=== PATIENT | male | born 1945 | race Caucasian/White ===

== ENCOUNTER 2017-12-20 06:36 | Emergency (ER) | payer OTHER, MEDICARE ==
[~2017-12-20] VITALS: Ht 188 cm; Wt 120.0 kg
[~2017-12-20 06:36] MED LIST: ASPI-41 PO; ATE25T PO; ATOR20TA66 PO; ESLI800T PO; KEP500T PO; LEVO150T8 PO; METF500T4 PO; OMEP20TA5 PO; OXYB15TA PO
[2017-12-20 06:43] VITALS: BP 146/99
== END 2017-12-20 10:25 | disposition home or self-care (01) ==
LOC: ER 06:36
DX: G40.909 Epilepsy, unspecified, not intractable, without status epilepticus (principal); I10 Essential (primary) hypertension; Z86.73 Personal history of transient ischemic attack (TIA), and cerebral infarction without residual deficits; Z79.82 Long term (current) use of aspirin
CPT/HCPCS: 93005; 99284

== ENCOUNTER 2018-06-16 12:58 | Emergency (ER) | payer MEDICARE, OTHER ==
[~2018-06-16] VITALS: Ht 185.4 cm; Wt 107.0 kg
[~2018-06-16 12:58] MED LIST changes: +ASPI-1265 PO; +ATEN-169 PO; +DILT180C66 PO; +LAMO25TA94 PO; +LEVE10002 PO; +LEVO175T2 PO; +LOSA25TA96 PO; +METF-436 PO; +METF500T PO; -METF500T4 PO; +OMEP40CA37 PO; +RIVA20TA PO
[2018-06-16 13:01] VITALS: BP 175/104
[2018-06-16] MEDS ORDERED: dexamethasone sod phosphate 10mg/ml inj IM STA (14:11)
[2018-06-16] MEDS ORDERED: gabapentin 300mg capsule PO ONE (14:15)
== END 2018-06-16 14:30 | disposition home or self-care (01) ==
LOC: ER 12:59
DX: M54.5 Low back pain (principal); R56.9 Unspecified convulsions; I10 Essential (primary) hypertension; E11.9 Type 2 diabetes mellitus without complications; Z86.73 Personal history of transient ischemic attack (TIA), and cerebral infarction without residual deficits; Z79.82 Long term (current) use of aspirin
CPT/HCPCS: 96372; 99283; J1100

== ENCOUNTER 2018-07-15 09:24 | Inpatient (IN) | payer MEDICARE, OTHER ==
[~2018-07-15] VITALS: Ht 180.3 cm; Wt 115.4 kg
[2018-07-15] MEDS ORDERED: normal saline 1000ML IV soln IVB ONE (09:30)
[2018-07-15] MEDS ORDERED: piperacillin/tazo 3.375gm/50ml 50 ML IV ONE (09:35)
[2018-07-15] MEDS ORDERED: furosemide 10 MG/1 ML 10ml inj IV ONE (09:35)
[2018-07-15 09:43] LABS: BASOPHILS # (AUTO) 0.2 X10'3 (0-0.2); BASOPHILS % (AUTO) 1.3 % (0-1); EOSINOPHILS % (AUTO) 0 % (0-6); HEMATOCRIT 47.1 % (42.0-52.0); HEMOGLOBIN 16.1 g/dl (14.0-17.9); LYMPHOCYTES # (AUTO) 0.3 X10'3 (1.1-4.8); LYMPHOCYTES % (AUTO) 1.8 % (21-51); MEAN CORPUSCULAR HEMOGLOBIN 31.3 PG (27.0-31.0); MEAN CORPUSCULAR HGB CONC 34.2 % (33.0-36.5); MEAN CORPUSCULAR VOLUME 91.6 FL (78-98); MONOCYTES # (AUTO) 0.7 X10'3 (0-0.9); MONOCYTES % (AUTO) 3.5 % (2-12); NEUTROPHILS # (AUTO) 17.5 X10'3 (1.8-7.7); NEUTROPHILS % (AUTO) 93.4 % (42-75); RED BLOOD COUNT 5.15 X10'6 (4.70-6.10); RED CELL DISTRIBUTION WIDTH 12.8 % (11.5-14.5); WHITE BLOOD COUNT 18.7 X10'3 (4.5-11.0)
[2018-07-15] MEDS ORDERED: ipratropium/albuterol 3ml nebule NEB ONE (09:45)
[2018-07-15 09:48] LABS: MEAN PLATELET VOLUME 8.7 FL (7.4-10.4); PLATELET COUNT 347 X10'3 (140-440)
[2018-07-15 09:57] LABS: ALANINE AMINOTRANSFERASE 29 U/L (12-78); ALBUMIN 4.1 G/DL (3.4-5.0); ALKALINE PHOSPHATASE 91 IU/L (46-116); ANION GAP 12 (8-16); ASPARTATE AMINO TRANSFERASE 18 U/L (10-37); BILIRUBIN,TOTAL 0.4 MG/DL (0.1-1.0); BLOOD UREA NITROGEN 19 MG/DL (7-18); BUN/CREATININE RATIO 16.7 (5.4-32.0); CALCIUM 8.9 MG/DL (8.5-10.1); CHLORIDE 98 MMOL/L (99-107); CREATININE 1.14 MG/DL (0.60-1.10); GLUCOSE 228 MG/DL (70-104); POTASSIUM 4.4 MMOL/L (3.5-5.1); SODIUM 135 MMOL/L (135-145); TOTAL CARBON DIOXIDE 24.6 MMOL/L (24-32); TOTAL PROTEIN 8.1 G/DL (6.4-8.2); eGFR 64 ML/MIN
[2018-07-15 10:00] LABS: ETHANOL < 0.010 GM/DL (0.0-0.010); TROPONIN I 0.08 NG/ML (0.0-0.05)
[2018-07-15 10:11] LABS: ABG BASE EXCESS -6.2 mmol/L (-2.0-3.0); ABG HCO3 21.3 mmol/L (22.0-26.0); ABG OXYGEN SATURATION 86.2 % (95-98); ABG PCO2 (T) 49.4 mmHg (35.0-48.0); ABG PH (T) 7.253 (7.350-7.450); ABG PO2 (T) 55.9 mmHg (83-108); ALLEN'S TEST Positive; FCOHb 0.7 % (0.5-1.5); FMetHb 0.2 % (0.3-1.12); FO2Hb 85.4 % (94-100); TOTAL HEMOGLOBIN 16.5 G/dl (14.0-18.0)
[2018-07-15] MEDS ORDERED: LORazepam 2 mg/ml vial IV ONE (10:15)
[2018-07-15 10:16] LABS: ABG BASE EXCESS -6.7 mmol/L (-2.0-3.0); ABG HCO3 20.6 mmol/L (22.0-26.0); ABG OXYGEN SATURATION 86.9 % (95-98); ABG PCO2 (T) 47.3 mmHg (35.0-48.0); ABG PH (T) 7.256 (7.350-7.450); ABG PO2 (T) 56.1 mmHg (83-108); ALLEN'S TEST Positive; FCOHb 0.8 % (0.5-1.5); FMetHb 0.2 % (0.3-1.12); TOTAL HEMOGLOBIN 16.1 G/dl (14.0-18.0)
[2018-07-15] MEDS ORDERED: iohexol 350MG/ML 100ml bottle IV ONE (10:25)
[2018-07-15 11:18] LABS: CLARITY,URINE CLEAR (Clear); COLOR,URINE STRAW (Yellow); GLUCOSE, URINE 500 mg/dl (Neg); KETONES,URINE TRACE mg/dl (Neg); LEUKOCYTE ESTERASE ,URINE NEGATIVE (Neg); NITRITES, URINE NEGATIVE (Neg); OCCULT BLOOD,URINE TRACE-INTACT (Neg); PROTEIN,URINE NEGATIVE (Neg); UROBILINOGEN,URINE 0.2 E.U/dL (0.2-1.0)
[2018-07-15 11:24] LABS: URINE AMPHETAMINE SCREEN NEGATIVE (Neg); URINE BARBITUATE SCREEN NEGATIVE (Neg); URINE BENZODIAZEPINES SCREEN NEGATIVE (Neg); URINE CANNABINOID SCREEN NEGATIVE (Neg); URINE COCAINE SCREEN NEGATIVE (Neg); URINE METHADONE SCREEN NEGATIVE (Neg); URINE OPIATE SCREEN NEGATIVE (Neg); URINE PHENCYCLIDINE SCREEN NEGATIVE (Neg)
[2018-07-15 11:29] LABS: UA COLLECTION TYPE STRAIGHT CATH
[2018-07-15] MEDS ORDERED: normal saline 1000ML IV soln IV ONE (11:35)
[2018-07-15 11:36] LABS: BACTERIA,URINE NONE SEEN /HPF (Neg); RBC,URINE 0-2 /HPF (0-2); SQUAMOUS EPITHELIAL CELL,UR NONE SEEN /LPF (FEW); WBC,URINE 0-4 /HPF (0-4)
[2018-07-15] MEDS ORDERED: magnesium hydroxide 30ml (MOM) UD suspension PO PRN (12:05)
[2018-07-15] MEDS ORDERED: magnesium 1gm/100ml D5W IVPB 100 ML IV PRN (12:05)
[2018-07-15] MEDS ORDERED: magnesium 4gm in 100ml NS 100 ML IV PRN (12:05)
[2018-07-15] MEDS ORDERED: ondansetron/PF 4mg/2ml inj IV PRN (12:05)
[2018-07-15] MEDS ORDERED: potassium Cl 40MEQ/NS 500ml 500 ML IV PRN ×2 (12:05)
[2018-07-15] MEDS ORDERED: mag hydrox/Alum hydrox/simeth 30ml oral suspension PO PRN (12:05)
[2018-07-15] MEDS ORDERED: acetaminophen 325mg tablet PO PRN (12:05)
[2018-07-15] MEDS ORDERED: potassium Cl 20 mEq SR tablet PO PRN ×2 (12:05)
[2018-07-15] MEDS ORDERED: LEVE500T PO ×2 (12:06)
[2018-07-15] MEDS ORDERED: dextrose 50%-water 50ml dispensing syringe IV PRN ×2 (12:35)
[2018-07-15] MEDS ORDERED: glucagon, human recombinant 1mg kit SUBCUT PRN (12:35)
[2018-07-15] MEDS ORDERED: dextrose ORAL solution 15 GM/59 ML bottle PO PRN ×2 (12:35)
[2018-07-15] MEDS ORDERED: MESSAGE TO PHARMACY PO ONE (12:35)
[2018-07-15] MEDS: normal saline 1000ml 1,000 ML IV SCH ×3 (12:38→23:07)
[2018-07-15 15:00] VITALS: BP 162/121
[2018-07-15] MEDS: MESSAGE TO NURSING PO SCH (15:35)
[2018-07-15] MEDS: diltiazem 5mg/ml 5ml inj. IV SCH ×2 (16:31→21:37)
[2018-07-15] MEDS: levoTHYROXINE sod inj. 100mcg/5 ml vial IV SCH (16:47)
[2018-07-15] MEDS: enoxaparin 100mg/ml syringe SUBCUT SCH (16:57)
[2018-07-15] MEDS: piperacillin/tazo 3.375gm/50ml 50 ML IV SCH (17:00)
[2018-07-15 19:00] VITALS: BP 181/128
[2018-07-15] MEDS: lactobacillus rhamnosus 10,000 MMU CELLS/CAPSULE PO SCH (20:00)
[2018-07-15] MEDS: insulin glargine (Lantus) pen - multi-dose SQ SCH (21:00)
[2018-07-15] MEDS ORDERED: LevETIRAcetam 1500 MG in NORMAL SALINE 100ml bag IV SCH (21:00)
[2018-07-15] MEDS: morphine 2 MG/ML inj. syringe IV PRN (21:31)
[2018-07-15] MEDS: levetiracetam inj 1,000 MG in normal saline 100ml IV soln 90 ML IV SCH (21:37)
[2018-07-15 23:00] VITALS: BP 155/91
[2018-07-15] MEDS: LORazepam 2 mg/ml vial IV PRN (23:03)
[2018-07-16] MEDS: diltiazem 5mg/ml 5ml inj. IV SCH ×3 (02:03→14:40)
[2018-07-16 03:00] VITALS: BP 160/79
[2018-07-16 05:12] LABS: BASOPHILS % (AUTO) 0.1 % (0-1); EOSINOPHILS % (AUTO) 0 % (0-6); HEMOGLOBIN 15.4 g/dl (14.0-17.9); LYMPHOCYTES # (AUTO) 0.4 X10'3 (1.1-4.8); LYMPHOCYTES % (AUTO) 2.7 % (21-51); MEAN CORPUSCULAR HEMOGLOBIN 31.2 PG (27.0-31.0); MEAN CORPUSCULAR HGB CONC 34.1 % (33.0-36.5); MEAN CORPUSCULAR VOLUME 91.5 FL (78-98); MEAN PLATELET VOLUME 9.4 FL (7.4-10.4); MONOCYTES # (AUTO) 0.5 X10'3 (0-0.9); MONOCYTES % (AUTO) 3.5 % (2-12); NEUTROPHILS # (AUTO) 14.3 X10'3 (1.8-7.7); NEUTROPHILS % (AUTO) 93.7 % (42-75); PLATELET COUNT 308 X10'3 (140-440); RED BLOOD COUNT 4.92 X10'6 (4.70-6.10); WHITE BLOOD COUNT 15.2 X10'3 (4.5-11.0)
[2018-07-16 05:30] LABS: ALANINE AMINOTRANSFERASE 23 U/L (12-78); ALBUMIN 3.5 G/DL (3.4-5.0); ALBUMIN/GLOBULIN RATIO 0.9 (1.1-1.5); ALKALINE PHOSPHATASE 70 IU/L (46-116); ANION GAP 18 (8-16); ASPARTATE AMINO TRANSFERASE 17 U/L (10-37); BILIRUBIN,TOTAL 0.5 MG/DL (0.1-1.0); BLOOD UREA NITROGEN 21 MG/DL (7-18); BUN/CREATININE RATIO 19.8 (5.4-32.0); CHLORIDE 105 MMOL/L (99-107); CHOL/HDL RATIO 3.2 (0.00-4.99); CHOLESTEROL 171 MG/DL (0-200); CREATININE 1.06 MG/DL (0.60-1.10); GLUCOSE 215 MG/DL (70-104); HDL CHOLESTEROL 54 MG/DL (35-60); LDL CHOLESTEROL 104 MG/DL (50-100); SODIUM 144 MMOL/L (135-145); TOTAL CARBON DIOXIDE 21.1 MMOL/L (24-32); TOTAL PROTEIN 7.5 G/DL (6.4-8.2); TRIGLYCERIDES 111 MG/DL (20-135); eGFR 69 ML/MIN
[2018-07-16 06:03] LABS: POTASSIUM 2.8 MMOL/L (3.5-5.1)
[2018-07-16 06:59] VITALS: BP 154/105
[2018-07-16] MEDS ORDERED: LevETIRAcetam 1,000MG in NORMAL SALINE 100ml IV.SOLN IV SCH (08:00)
[2018-07-16] MEDS: piperacillin/tazo 3.375gm/50ml 50 ML IV SCH ×3 (08:00→17:02)
[2018-07-16] MEDS: K and/or MAG REPLACEMENT MC SCH (08:00)
[2018-07-16] MEDS: levoTHYROXINE sod inj. 100mcg/5 ml vial IV SCH (08:00)
[2018-07-16 08:01] VITALS: BP 160/108
[2018-07-16] MEDS: normal saline 1000ml 1,000 ML IV SCH ×2 (08:34→18:59)
[2018-07-16] MEDS: levetiracetam inj 1,000 MG in normal saline 100ml IV soln 90 ML IV SCH ×3 (08:35→21:12)
[2018-07-16] MEDS: enoxaparin 100mg/ml syringe SUBCUT SCH (08:36)
[2018-07-16] MEDS: lactobacillus rhamnosus 10,000 MMU CELLS/CAPSULE PO SCH ×2 (08:37→21:12)
[2018-07-16] MEDS: insulin Lispro (HumaLOG) vial - multi-dose SQ SCH ×3 (08:47→19:01)
[2018-07-16] MEDS: LORazepam 2 mg/ml vial IV PRN (09:44)
[2018-07-16] MEDS: MESSAGE TO NURSING PO SCH (11:00)
[2018-07-16] MEDS: atenolol 50mg tablet PO SCH ×2 (11:35→21:12)
[2018-07-16] MEDS: morphine 2 MG/ML inj. syringe IV PRN ×2 (15:59→21:24)
[2018-07-16] MEDS ORDERED: hydrALAZINE 20mg/ml inj. IV PRN (16:45)
[2018-07-16] MEDS: acyclovir inj 1,000 MG in normal saline 250ml IV soln 230 ML IV SCH (17:02)
[2018-07-16] MEDS: diltiazem-NS 100mg/100ml 100 ML IV SCH (18:35)
[2018-07-16 19:00] VITALS: BP 148/110
[2018-07-16] MEDS: insulin glargine (Lantus) pen - multi-dose SQ SCH (21:00)
[2018-07-16] MEDS: CefTRIAXone 2gm/D5W 50ml 50 ML IV SCH (21:00)
[2018-07-16 23:00] VITALS: BP 179/110
[2018-07-17] VITALS (9 sets, daily range): BP systolic 111–173; BP diastolic 67–136
[2018-07-17] MEDS: normal saline 1000ml 1,000 ML IV SCH ×5 (02:00→10:47)
[2018-07-17] MEDS: morphine 2 MG/ML inj. syringe IV PRN (02:12)
[2018-07-17] MEDS: hydrALAZINE 20mg/ml inj. IV PRN (03:50)
[2018-07-17 05:48] LABS: BASOPHILS % (AUTO) 0.1 % (0-1); EOSINOPHILS % (AUTO) 0 % (0-6); HEMOGLOBIN 14.7 g/dl (14.0-17.9); LYMPHOCYTES # (AUTO) 0.7 X10'3 (1.1-4.8); LYMPHOCYTES % (AUTO) 4.3 % (21-51); MEAN CORPUSCULAR HEMOGLOBIN 31.5 PG (27.0-31.0); MEAN CORPUSCULAR HGB CONC 34.2 % (33.0-36.5); MEAN CORPUSCULAR VOLUME 92.3 FL (78-98); MONOCYTES % (AUTO) 6.6 % (2-12); NEUTROPHILS # (AUTO) 14.2 X10'3 (1.8-7.7); PLATELET COUNT 354 X10'3 (140-440); RED BLOOD COUNT 4.66 X10'6 (4.70-6.10); RED CELL DISTRIBUTION WIDTH 13.5 % (11.5-14.5); WHITE BLOOD COUNT 15.9 X10'3 (4.5-11.0)
[2018-07-17 06:02] LABS: ALANINE AMINOTRANSFERASE 19 U/L (12-78); ALBUMIN 3.1 G/DL (3.4-5.0); ALBUMIN/GLOBULIN RATIO 0.8 (1.1-1.5); ALKALINE PHOSPHATASE 60 IU/L (46-116); ANION GAP 16 (8-16); ASPARTATE AMINO TRANSFERASE 11 U/L (10-37); BILIRUBIN,TOTAL 0.5 MG/DL (0.1-1.0); BLOOD UREA NITROGEN 41 MG/DL (7-18); BUN/CREATININE RATIO 39.8 (5.4-32.0); CALCIUM 9.7 MG/DL (8.5-10.1); CHLORIDE 115 MMOL/L (99-107); CREATININE 1.03 MG/DL (0.60-1.10); GLUCOSE 241 MG/DL (70-104); MAGNESIUM 2.2 MG/DL (1.5-2.4); POTASSIUM 3.6 MMOL/L (3.5-5.1); SODIUM 152 MMOL/L (135-145); TOTAL CARBON DIOXIDE 21.2 MMOL/L (24-32); TOTAL PROTEIN 6.9 G/DL (6.4-8.2); eGFR 71 ML/MIN
[2018-07-17] MEDS: levetiracetam inj 1,000 MG in normal saline 100ml IV soln 90 ML IV SCH ×3 (07:41→20:17)
[2018-07-17] MEDS: CefTRIAXone 2gm/D5W 50ml 50 ML IV SCH (07:41)
[2018-07-17] MEDS: acyclovir inj 1,000 MG in normal saline 250ml IV soln 230 ML IV SCH ×4 (07:41→15:48)
[2018-07-17] MEDS: lactobacillus rhamnosus 10,000 MMU CELLS/CAPSULE PO SCH ×2 (07:42→20:17)
[2018-07-17] MEDS: levoTHYROXINE sod inj. 100mcg/5 ml vial IV SCH (07:43)
[2018-07-17] MEDS: K and/or MAG REPLACEMENT MC SCH (08:00)
[2018-07-17] MEDS: atenolol 50mg tablet PO SCH ×2 (08:02→20:17)
[2018-07-17] MEDS ORDERED: diltiazem 5mg/ml 5ml inj. IV ONE (09:25)
[2018-07-17] MEDS: diltiazem-NS 100mg/100ml 100 ML IV SCH (10:18)
[2018-07-17] MEDS: insulin Lispro (HumaLOG) vial - multi-dose SQ SCH ×4 (10:35→22:18)
[2018-07-17] MEDS: LORazepam 2 mg/ml vial IV PRN (10:36)
[2018-07-17 13:01] LABS: GLUCOSE,CSF 151 MG/DL (40-75); TOTAL PROTEIN,CSF 61 MG/DL (30-60)
[2018-07-17 13:24] LABS: APPEARANCE,CSF CLEAR; CSF RBC 0 /CU MM (0); CSF SUPERNATANT COLOR COLORLESS; CSF VOLUME 15.5 ML; TUBE# COUNTED 3
[2018-07-17 13:31] LABS: CSF WBC CT 3 /CU MM (0-5)
[2018-07-17] MEDS ORDERED: digoxin 250mcg/ml 2ml ampule IV ONE (13:45)
[2018-07-17] MEDS ORDERED: amiodarone 150mg/dext, iso-os 100 ML IV ONE (16:00)
[2018-07-17] MEDS: dextrose 5%-water 1,000 ML IV SCH (16:10)
[2018-07-17] MEDS: amiodarone/D5 360MG/200ML BAG 200 ML IV SCH ×2 (17:13→17:46)
[2018-07-17] MEDS: insulin glargine (Lantus) pen - multi-dose SQ SCH (22:11)
[2018-07-18] VITALS (9 sets, daily range): BP systolic 116–154; BP diastolic 73–115
[2018-07-18] MEDS: amiodarone/D5 360MG/200ML BAG 200 ML IV SCH (01:32)
[2018-07-18] MEDS: dextrose 5%-water 1,000 ML IV SCH ×3 (02:10→22:40)
[2018-07-18 04:27] LABS: BASOPHILS # (AUTO) 0.1 X10'3 (0-0.2); BASOPHILS % (AUTO) 0.6 % (0-1); EOSINOPHILS % (AUTO) 0 % (0-6); HEMATOCRIT 41.6 % (42.0-52.0); HEMOGLOBIN 14.1 g/dl (14.0-17.9); LYMPHOCYTES # (AUTO) 0.9 X10'3 (1.1-4.8); LYMPHOCYTES % (AUTO) 6.3 % (21-51); MEAN CORPUSCULAR HEMOGLOBIN 31.4 PG (27.0-31.0); MEAN CORPUSCULAR VOLUME 92.4 FL (78-98); MEAN PLATELET VOLUME 9.2 FL (7.4-10.4); MONOCYTES # (AUTO) 1.1 X10'3 (0-0.9); NEUTROPHILS # (AUTO) 12.2 X10'3 (1.8-7.7); NEUTROPHILS % (AUTO) 85.1 % (42-75); PLATELET COUNT 291 X10'3 (140-440); RED CELL DISTRIBUTION WIDTH 13.6 % (11.5-14.5); WHITE BLOOD COUNT 14.3 X10'3 (4.5-11.0)
[2018-07-18 04:41] LABS: ALANINE AMINOTRANSFERASE 34 U/L (12-78); ALBUMIN/GLOBULIN RATIO 0.9 (1.1-1.5); ALKALINE PHOSPHATASE 66 IU/L (46-116); ANION GAP 11 (8-16); ASPARTATE AMINO TRANSFERASE 31 U/L (10-37); BILIRUBIN,TOTAL 0.3 MG/DL (0.1-1.0); BLOOD UREA NITROGEN 45 MG/DL (7-18); BUN/CREATININE RATIO 39.1 (5.4-32.0); CALCIUM 9.4 MG/DL (8.5-10.1); CHLORIDE 120 MMOL/L (99-107); CREATININE 1.15 MG/DL (0.60-1.10); GLUCOSE 155 MG/DL (70-104); MAGNESIUM 2.2 MG/DL (1.5-2.4); POTASSIUM 3.8 MMOL/L (3.5-5.1); TOTAL CARBON DIOXIDE 23.7 MMOL/L (24-32); TOTAL PROTEIN 6.4 G/DL (6.4-8.2); eGFR 63 ML/MIN
[2018-07-18 04:46] LABS: SODIUM 155 MMOL/L (135-145)
[2018-07-18] MEDS: lactobacillus rhamnosus 10,000 MMU CELLS/CAPSULE PO SCH ×2 (07:56→20:47)
[2018-07-18] MEDS: atenolol 50mg tablet PO SCH (07:57)
[2018-07-18] MEDS: levetiracetam inj 1,000 MG in normal saline 100ml IV soln 90 ML IV SCH ×3 (07:58→20:47)
[2018-07-18] MEDS: K and/or MAG REPLACEMENT MC SCH (08:00)
[2018-07-18] MEDS ORDERED: diltiazem 5mg/ml 5ml inj. IV ONE (08:35)
[2018-07-18] MEDS: acyclovir inj 1,000 MG in normal saline 250ml IV soln 230 ML IV SCH ×4 (08:56→16:24)
[2018-07-18] MEDS: diltiazem-NS 100mg/100ml 100 ML IV SCH ×2 (09:06→20:33)
[2018-07-18] MEDS: levoTHYROXINE sod inj. 100mcg/5 ml vial IV SCH (09:27)
[2018-07-18] MEDS: insulin Lispro (HumaLOG) vial - multi-dose SQ SCH ×2 (09:29→13:13)
[2018-07-18 09:56] LABS: CLARITY,URINE CLEAR (Clear); COLOR,URINE YELLOW (Yellow); GLUCOSE, URINE >=1000 mg/dl (Neg); KETONES,URINE NEGATIVE (Neg); LEUKOCYTE ESTERASE ,URINE NEGATIVE (Neg); NITRITES, URINE NEGATIVE (Neg); OCCULT BLOOD,URINE TRACE-INTACT (Neg); PH,URINE 6.5 (4.8-8.0); PROTEIN,URINE NEGATIVE (Neg); UROBILINOGEN,URINE 0.2 E.U/dL (0.2-1.0)
[2018-07-18 10:04] LABS: UA COLLECTION TYPE FOLEY CATH
[2018-07-18 10:05] LABS: BACTERIA,URINE NONE SEEN /HPF (Neg); MUCUS STRANDS NONE SEEN /LPF (Neg); SQUAMOUS EPITHELIAL CELL,UR NONE SEEN /LPF (FEW); WBC,URINE 0-4 /HPF (0-4)
[2018-07-18] MEDS: rivaroxaban 20mg tablet PO SCH (10:24)
[2018-07-18 10:33] LABS: OSMOLALITY 337 MOSM/K (280-300)
[2018-07-18 12:14] LABS: SODIUM,URINE RANDOM < 15 MEQ/L
[2018-07-18] MEDS: carVEDilol 12.5mg tablet PO SCH (20:47)
[2018-07-18] MEDS: atorvastatin 20mg tablet PO SCH (20:47)
[2018-07-18] MEDS: insulin glargine (Lantus) pen - multi-dose SQ SCH (21:55)
[2018-07-19] VITALS (8 sets, daily range): BP systolic 102–162; BP diastolic 58–120
[2018-07-19] MEDS: acyclovir inj 1,000 MG in normal saline 250ml IV soln 230 ML IV SCH ×3 (00:42→20:19)
[2018-07-19 06:05] LABS: ABG HCO3 23.9 mmol/L (22.0-26.0); ABG OXYGEN SATURATION 96.7 % (95-98); ABG PCO2 (T) 35.5 mmHg (35.0-48.0); ABG PH (T) 7.453 (7.350-7.450); ABG PO2 (T) 96.3 mmHg (83-108); ALLEN'S TEST Positive; FCOHb 0.8 % (0.5-1.5); FLOW 4 L/min; FMetHb 0.1 % (0.3-1.12); FO2Hb 95.8 % (94-100); PATIENT TEMPERATURE 38.6; TOTAL HEMOGLOBIN 14.3 G/dl (14.0-18.0)
[2018-07-19] MEDS: hydrALAZINE 20mg/ml inj. IV PRN (06:15)
[2018-07-19 06:31] LABS: BASOPHILS % (AUTO) 0.2 % (0-1); EOSINOPHILS % (AUTO) 0 % (0-6); HEMATOCRIT 38.8 % (42.0-52.0); HEMOGLOBIN 13.4 g/dl (14.0-17.9); LYMPHOCYTES % (AUTO) 7.4 % (21-51); MEAN CORPUSCULAR HGB CONC 34.6 % (33.0-36.5); MEAN CORPUSCULAR VOLUME 92.5 FL (78-98); MEAN PLATELET VOLUME 10.1 FL (7.4-10.4); MONOCYTES # (AUTO) 0.8 X10'3 (0-0.9); MONOCYTES % (AUTO) 6.1 % (2-12); NEUTROPHILS # (AUTO) 11.3 X10'3 (1.8-7.7); NEUTROPHILS % (AUTO) 86.3 % (42-75); PLATELET COUNT 275 X10'3 (140-440); RED BLOOD COUNT 4.19 X10'6 (4.70-6.10); RED CELL DISTRIBUTION WIDTH 13.5 % (11.5-14.5); WHITE BLOOD COUNT 13.1 X10'3 (4.5-11.0)
[2018-07-19 07:11] LABS: ALANINE AMINOTRANSFERASE 42 U/L (12-78); ALBUMIN 2.9 G/DL (3.4-5.0); ALBUMIN/GLOBULIN RATIO 0.9 (1.1-1.5); ALKALINE PHOSPHATASE 71 IU/L (46-116); ANION GAP 11 (8-16); ASPARTATE AMINO TRANSFERASE 35 U/L (10-37); BILIRUBIN,TOTAL 0.5 MG/DL (0.1-1.0); BLOOD UREA NITROGEN 36 MG/DL (7-18); CALCIUM 9.3 MG/DL (8.5-10.1); CHLORIDE 120 MMOL/L (99-107); CREATININE 1.24 MG/DL (0.60-1.10); GLUCOSE 223 MG/DL (70-104); POTASSIUM 3.6 MMOL/L (3.5-5.1); TOTAL CARBON DIOXIDE 26.7 MMOL/L (24-32); TOTAL PROTEIN 6.2 G/DL (6.4-8.2); TROPONIN I < 0.04 NG/ML (0.0-0.05); eGFR 58 ML/MIN
[2018-07-19] MEDS: carVEDilol 12.5mg tablet PO SCH ×2 (07:14→23:15)
[2018-07-19] MEDS: rivaroxaban 20mg tablet PO SCH (07:15)
[2018-07-19] MEDS: levetiracetam inj 1,000 MG in normal saline 100ml IV soln 90 ML IV SCH ×3 (07:15→23:03)
[2018-07-19] MEDS: lactobacillus rhamnosus 10,000 MMU CELLS/CAPSULE PO SCH ×2 (07:15→23:19)
[2018-07-19 07:16] LABS: SODIUM 158 MMOL/L (135-145)
[2018-07-19] MEDS: levoTHYROXINE sod inj. 100mcg/5 ml vial IV SCH (07:20)
[2018-07-19] MEDS ORDERED: diltiazem 5mg/ml 5ml inj. IV ONE (07:40)
[2018-07-19] MEDS: K and/or MAG REPLACEMENT MC SCH (08:00)
[2018-07-19] MEDS: dextrose 5%-water 1,000 ML IV SCH ×2 (08:09→16:09)
[2018-07-19] MEDS ORDERED: mineral oil 133ml enema RC STA (09:38)
[2018-07-19] MEDS: insulin Lispro (HumaLOG) vial - multi-dose SQ SCH ×3 (10:19→20:11)
[2018-07-19] MEDS ORDERED: diltiazem-NS 100mg/100ml 100 ML IV SCH (10:46)
[2018-07-19] MEDS: enoxaparin 100mg/ml syringe SUBCUT SCH ×2 (12:08→20:12)
[2018-07-19] MEDS: diltiazem-NS 100mg/100ml 100 ML IV SCH (17:32)
[2018-07-19] MEDS: mineral oil 133ml enema RC SCH (20:25)
[2018-07-19] MEDS: insulin glargine (Lantus) pen - multi-dose SQ SCH (22:28)
[2018-07-19] MEDS: atorvastatin 20mg tablet PO SCH (23:15)
[2018-07-20] VITALS (8 sets, daily range): BP systolic 106–143; BP diastolic 64–99
[2018-07-20] MEDS: dextrose 5%-water 1,000 ML IV SCH ×4 (00:17→22:06)
[2018-07-20] MEDS: mineral oil 133ml enema RC SCH (02:18)
[2018-07-20] MEDS: diltiazem-NS 100mg/100ml 100 ML IV SCH ×3 (04:06→22:31)
[2018-07-20 06:34] LABS: BASOPHILS % (AUTO) 0.1 % (0-1); EOSINOPHILS % (AUTO) 0.1 % (0-6); HEMATOCRIT 34.5 % (42.0-52.0); HEMOGLOBIN 11.5 g/dl (14.0-17.9); LYMPHOCYTES # (AUTO) 0.9 X10'3 (1.1-4.8); LYMPHOCYTES % (AUTO) 6.7 % (21-51); MEAN CORPUSCULAR HEMOGLOBIN 31.1 PG (27.0-31.0); MEAN CORPUSCULAR HGB CONC 33.3 % (33.0-36.5); MEAN CORPUSCULAR VOLUME 93.4 FL (78-98); MONOCYTES # (AUTO) 0.8 X10'3 (0-0.9); MONOCYTES % (AUTO) 6.1 % (2-12); NEUTROPHILS # (AUTO) 11.1 X10'3 (1.8-7.7); PLATELET COUNT 223 X10'3 (140-440); RED BLOOD COUNT 3.69 X10'6 (4.70-6.10); RED CELL DISTRIBUTION WIDTH 14.3 % (11.5-14.5); WHITE BLOOD COUNT 12.7 X10'3 (4.5-11.0)
[2018-07-20 06:56] LABS: ALANINE AMINOTRANSFERASE 36 U/L (12-78); ALBUMIN 2.4 G/DL (3.4-5.0); ALBUMIN/GLOBULIN RATIO 0.8 (1.1-1.5); ALKALINE PHOSPHATASE 62 IU/L (46-116); ANION GAP 11 (8-16); ASPARTATE AMINO TRANSFERASE 35 U/L (10-37); BILIRUBIN,TOTAL 0.5 MG/DL (0.1-1.0); BLOOD UREA NITROGEN 38 MG/DL (7-18); CALCIUM 8.4 MG/DL (8.5-10.1); CHLORIDE 119 MMOL/L (99-107); CREATININE 1.31 MG/DL (0.60-1.10); GLUCOSE 208 MG/DL (70-104); MAGNESIUM 1.7 MG/DL (1.5-2.4); POTASSIUM 3.4 MMOL/L (3.5-5.1); SODIUM 154 MMOL/L (135-145); TOTAL CARBON DIOXIDE 24.5 MMOL/L (24-32); TOTAL PROTEIN 5.5 G/DL (6.4-8.2); TROPONIN I < 0.04 NG/ML (0.0-0.05); eGFR 54 ML/MIN
[2018-07-20] MEDS: K and/or MAG REPLACEMENT MC SCH (08:00)
[2018-07-20] MEDS: lactobacillus rhamnosus 10,000 MMU CELLS/CAPSULE PO SCH ×2 (08:25→20:59)
[2018-07-20] MEDS: carVEDilol 12.5mg tablet PO SCH ×2 (08:25→20:56)
[2018-07-20] MEDS: enoxaparin 100mg/ml syringe SUBCUT SCH ×2 (08:25→21:01)
[2018-07-20] MEDS: acyclovir inj 1,000 MG in normal saline 250ml IV soln 230 ML IV SCH ×2 (08:26→20:53)
[2018-07-20] MEDS: levetiracetam inj 1,000 MG in normal saline 100ml IV soln 90 ML IV SCH ×3 (08:26→21:57)
[2018-07-20] MEDS: levoTHYROXINE sod inj. 100mcg/5 ml vial IV SCH (09:00)
[2018-07-20] MEDS: insulin Lispro (HumaLOG) vial - multi-dose SQ SCH ×3 (10:53→19:08)
[2018-07-20] MEDS ORDERED: potassium Cl 20 mEq SR tablet PO PRN ×2 (11:05)
[2018-07-20] MEDS ORDERED: potassium Cl 40MEQ/NS 500ml 500 ML IV PRN ×2 (11:05)
[2018-07-20] MEDS ORDERED: digoxin 250mcg/ml 2ml ampule IV ONE ×4 (11:50→19:00)
[2018-07-20] MEDS ORDERED: NORepinephrine bitartrate 8 MG in NS 250 ML BAG (32 mcg/ml) IV ONE (19:00)
[2018-07-20 19:14] LABS: HSV 1 PCR Negative (Negative); HSV 2 PCR Negative (Negative)
[2018-07-20] MEDS: atorvastatin 20mg tablet PO SCH (21:45)
[2018-07-20] MEDS: insulin glargine (Lantus) pen - multi-dose SQ SCH (21:50)
[2018-07-20] MEDS: clindamycin 600mg/D5W 50ml 50 ML IV SCH (23:57)
[2018-07-21] VITALS (37 sets, daily range): BP systolic 72–140; BP diastolic 45–98
[2018-07-21] MEDS: clindamycin 600mg/D5W 50ml 50 ML IV SCH
[2018-07-21] MEDS ORDERED: clindamycin 600mg/D5W 50ml 50 ML IV SCH (02:00)
[2018-07-21 02:45] LABS: MAGNESIUM 1.9 MG/DL (1.5-2.4)
[2018-07-21 03:31] LABS: ABG HCO3 22.7 mmol/L (22.0-26.0); ABG OXYGEN SATURATION 90.6 % (95-98); ABG PCO2 (T) 39.3 mmHg (35.0-48.0); ABG PH (T) 7.381 (7.350-7.450); ABG PO2 (T) 69.9 mmHg (83-108); ALLEN'S TEST Positive; FCOHb 0.3 % (0.5-1.5); FLOW 4 L/min; FMetHb 0.1 % (0.3-1.12); FO2Hb 90.2 % (94-100); PATIENT TEMPERATURE 37.6
[2018-07-21] MEDS ORDERED: propofol 1000mg/100ml bottle 100 ML IV PRN (03:51)
[2018-07-21] MEDS ORDERED: vancomycin/NS 1 GM ADD-VANTAGE 250 ML IV ONE (03:55)
[2018-07-21] MEDS: NORepinephrine 8 MG in normal saline 250ml IV soln IV SCH ×3 (04:10→22:09)
[2018-07-21 04:40] LABS: ABG BASE EXCESS -2.5 mmol/L (-2.0-3.0); ABG HCO3 20.6 mmol/L (22.0-26.0); ABG OXYGEN SATURATION 97.3 % (95-98); ABG PCO2 (T) 30.2 mmHg (35.0-48.0); ABG PH (T) 7.453 (7.350-7.450); ABG PO2 (T) 115.3 mmHg (83-108); ALLEN'S TEST Positive; FCOHb 0.3 % (0.5-1.5); FMetHb 0.1 % (0.3-1.12); FO2Hb 96.9 % (94-100); PATIENT TEMPERATURE 37.2; PEEP 5 cm H2O; RESPIRATORY RATE 16 b/min; RESPIRATORY RATE (OBSERVED) 28 b/min; TIDAL VOLUME 550 mL; TOTAL HEMOGLOBIN 10.2 G/dl (14.0-18.0)
[2018-07-21 04:52] LABS: BASOPHILS % (AUTO) 0 % (0-1); EOSINOPHILS % (AUTO) 0 % (0-6); HEMOGLOBIN 9.3 g/dl (14.0-17.9); LYMPHOCYTES % (AUTO) 6.5 % (21-51); MEAN CORPUSCULAR HEMOGLOBIN 31.5 PG (27.0-31.0); MEAN CORPUSCULAR HGB CONC 33.1 % (33.0-36.5); MEAN CORPUSCULAR VOLUME 95.3 FL (78-98); MEAN PLATELET VOLUME 9.5 FL (7.4-10.4); MONOCYTES % (AUTO) 6.8 % (2-12); NEUTROPHILS % (AUTO) 86.7 % (42-75); PLATELET COUNT 268 X10'3 (140-440); RED BLOOD COUNT 2.94 X10'6 (4.70-6.10)
[2018-07-21] MEDS: vancomycin/NS 1 GM ADD-VANTAGE 250 ML X 1 DOSE IV SCH ×2 (05:00→07:00)
[2018-07-21] MEDS ORDERED: vasopressin inj. 60 UNIT in normal saline 100ml IV soln 97 ML IV SCH (05:00)
[2018-07-21 05:07] LABS: ANION GAP 11 (8-16); BLOOD UREA NITROGEN 57 MG/DL (7-18); BUN/CREATININE RATIO 24.4 (5.4-32.0); CALCIUM 8.1 MG/DL (8.5-10.1); CHLORIDE 117 MMOL/L (99-107); CREATININE 2.34 MG/DL (0.60-1.10); GLUCOSE 257 MG/DL (70-104); PHOSPHORUS 5.2 MG/DL (2.3-4.5); TOTAL CARBON DIOXIDE 29.5 MMOL/L (24-32); TROPONIN I 0.08 NG/ML (0.0-0.05); eGFR 28 ML/MIN
[2018-07-21 05:11] LABS: SODIUM 157 MMOL/L (135-145)
[2018-07-21 05:15] LABS: INR 1.4 INR; PARTIAL THROMBOPLASTIN TIME 28 SECONDS (22-32)
[2018-07-21] MEDS ORDERED: DOBUTamine-DoBUTrex 500mg/D5W 250 ML IV ONE (05:59)
[2018-07-21 06:00] LABS: OXYGEN SATURATION (MIXED VEN) 53.3 % (60-80); PO2 MIXED VENOUS (TEMP COR) 33.4 mmHg (35-46)
[2018-07-21] MEDS ORDERED: pantoprazole 40MG/NS 100ML BAG 100 ML IV SCH (06:00)
[2018-07-21] MEDS: DOBUTamine-DoBUTrex 500mg/D5W 250 ML IV SCH ×2 (06:30→23:30)
[2018-07-21] MEDS: pantoprazole 40MG/NS 100ML BAG 100 ML IV SCH ×4 (06:42→23:30)
[2018-07-21] MEDS ORDERED: acetaminophen 650mg rectal suppository RC PRN (07:40)
[2018-07-21] MEDS: insulin Lispro (HumaLOG) vial - multi-dose SQ SCH ×2 (07:41→14:08)
[2018-07-21] MEDS: diatr meglu/diatrizoate 30ml oral sol.-(3 dose) bottle PO SCH ×3 (07:57→14:01)
[2018-07-21] MEDS ORDERED: piperacillin/tazo 3.375gm/50ml 50 ML IV SCH (08:00)
[2018-07-21] MEDS: K and/or MAG REPLACEMENT MC SCH (08:00)
[2018-07-21] MEDS ORDERED: famotidine/PF 10 mg/ml inj IV SCH (08:00)
[2018-07-21] MEDS ORDERED: rivaroxaban 20mg tablet PO SCH (08:00)
[2018-07-21] MEDS: lactobacillus rhamnosus 10,000 MMU CELLS/CAPSULE PO SCH ×2 (08:00→19:42)
[2018-07-21 08:34] LABS: BASOPHILS % (AUTO) 0.1 % (0-1); EOSINOPHILS % (AUTO) 0 % (0-6); HEMATOCRIT 23.4 % (42.0-52.0); HEMOGLOBIN 7.9 g/dl (14.0-17.9); LYMPHOCYTES # (AUTO) 1.2 X10'3 (1.1-4.8); MEAN CORPUSCULAR HEMOGLOBIN 31.8 PG (27.0-31.0); MEAN CORPUSCULAR HGB CONC 33.5 % (33.0-36.5); MEAN CORPUSCULAR VOLUME 94.9 FL (78-98); MEAN PLATELET VOLUME 9.5 FL (7.4-10.4); MONOCYTES # (AUTO) 1.2 X10'3 (0-0.9); MONOCYTES % (AUTO) 6.9 % (2-12); PLATELET COUNT 227 X10'3 (140-440); RED BLOOD COUNT 2.47 X10'6 (4.70-6.10); RED CELL DISTRIBUTION WIDTH 13.6 % (11.5-14.5); WHITE BLOOD COUNT 17.5 X10'3 (4.5-11.0)
[2018-07-21] MEDS: normal saline 1000ml 1,000 ML IV PRN ×2 (08:37→14:33)
[2018-07-21] MEDS: levoTHYROXINE sod inj. 100mcg/5 ml vial IV SCH (08:48)
[2018-07-21] MEDS: levetiracetam inj 1,000 MG in normal saline 100ml IV soln 90 ML IV SCH ×3 (08:48→21:30)
[2018-07-21 08:50] LABS: ALANINE AMINOTRANSFERASE 157 U/L (12-78); ALBUMIN 1.6 G/DL (3.4-5.0); ALBUMIN/GLOBULIN RATIO 0.6 (1.1-1.5); ALKALINE PHOSPHATASE 51 IU/L (46-116); ANION GAP 11 (8-16); ASPARTATE AMINO TRANSFERASE 162 U/L (10-37); BILIRUBIN,TOTAL 0.5 MG/DL (0.1-1.0); BLOOD UREA NITROGEN 69 MG/DL (7-18); BUN/CREATININE RATIO 31.9 (5.4-32.0); CALCIUM 7.3 MG/DL (8.5-10.1); CHLORIDE 120 MMOL/L (99-107); CREATININE 2.16 MG/DL (0.60-1.10); GLUCOSE 257 MG/DL (70-104); POTASSIUM 3.8 MMOL/L (3.5-5.1); TOTAL CARBON DIOXIDE 24.8 MMOL/L (24-32); TOTAL PROTEIN 4.1 G/DL (6.4-8.2); eGFR 30 ML/MIN
[2018-07-21 08:58] LABS: SODIUM 156 MMOL/L (135-145)
[2018-07-21] MEDS ORDERED: LIDOcaine 2% 5ml jelly ONE (09:00)
[2018-07-21 09:10] LABS: PLATELET ESTIMATE NORMAL; TOTAL CELLS COUNTED 100
[2018-07-21] MEDS ORDERED: FENTANYL-0.9 % NACL/PF 100 ML IV PRN (09:52)
[2018-07-21] MEDS: linezolid 600mg/300ml PREMIX 300 ML IV SCH ×2 (09:57→19:42)
[2018-07-21] MEDS: midazolam 100mg in NS 100ml 100 ML IV PRN (10:07)
[2018-07-21] MEDS: dextrose 5%-water 1,000 ML IV SCH (11:31)
[2018-07-21] MEDS: morphine/NS 100mg/100ml bag 100 ML IV SCH (11:38)
[2018-07-21 13:03] LABS: BASOPHILS % (AUTO) 0.1 % (0-1); EOSINOPHILS % (AUTO) 0 % (0-6); HEMATOCRIT 23.8 % (42.0-52.0); LYMPHOCYTES # (AUTO) 1.2 X10'3 (1.1-4.8); LYMPHOCYTES % (AUTO) 9.3 % (21-51); MEAN CORPUSCULAR HEMOGLOBIN 30.8 PG (27.0-31.0); MEAN CORPUSCULAR HGB CONC 33.5 % (33.0-36.5); MEAN CORPUSCULAR VOLUME 91.9 FL (78-98); MEAN PLATELET VOLUME 9.4 FL (7.4-10.4); MONOCYTES # (AUTO) 0.8 X10'3 (0-0.9); MONOCYTES % (AUTO) 6.7 % (2-12); NEUTROPHILS # (AUTO) 10.6 X10'3 (1.8-7.7); NEUTROPHILS % (AUTO) 83.9 % (42-75); PLATELET COUNT 158 X10'3 (140-440); RED CELL DISTRIBUTION WIDTH 15.3 % (11.5-14.5); WHITE BLOOD COUNT 12.6 X10'3 (4.5-11.0)
[2018-07-21] MEDS ORDERED: MIDAZolam 5mg/5ml vial ONE (15:48)
[2018-07-21] MEDS ORDERED: LIDOcaine Viscous 15ml cup ONE (15:48)
[2018-07-21] MEDS ORDERED: fentaNYL/PF 50MCG/1 ML 2ML syringe ONE (15:48)
[2018-07-21] MEDS: piperacillin/tazo 3.375gm/50ml 50 ML IV SCH (17:01)
[2018-07-21] MEDS ORDERED: calcium chloride inj. 1,000 MG in normal saline 100ml IV soln 90 ML IV ONE (20:00)
[2018-07-21 20:29] LABS: BASOPHILS % (AUTO) 0.1 % (0-1); EOSINOPHILS % (AUTO) 0.4 % (0-6); HEMATOCRIT 27.8 % (42.0-52.0); HEMOGLOBIN 9.2 g/dl (14.0-17.9); LYMPHOCYTES # (AUTO) 1.6 X10'3 (1.1-4.8); LYMPHOCYTES % (AUTO) 15.2 % (21-51); MEAN CORPUSCULAR HEMOGLOBIN 30.3 PG (27.0-31.0); MEAN PLATELET VOLUME 9.4 FL (7.4-10.4); MONOCYTES # (AUTO) 0.6 X10'3 (0-0.9); MONOCYTES % (AUTO) 5.9 % (2-12); NEUTROPHILS % (AUTO) 78.4 % (42-75); PLATELET COUNT 156 X10'3 (140-440); RED BLOOD COUNT 3.03 X10'6 (4.70-6.10); WHITE BLOOD COUNT 10.2 X10'3 (4.5-11.0)
[2018-07-21 20:41] LABS: ALANINE AMINOTRANSFERASE 185 U/L (12-78); ALBUMIN 1.7 G/DL (3.4-5.0); ALBUMIN/GLOBULIN RATIO 0.7 (1.1-1.5); ALKALINE PHOSPHATASE 47 IU/L (46-116); ANION GAP 8 (8-16); ASPARTATE AMINO TRANSFERASE 191 U/L (10-37); BILIRUBIN,TOTAL 0.5 MG/DL (0.1-1.0); BLOOD UREA NITROGEN 62 MG/DL (7-18); BUN/CREATININE RATIO 36.3 (5.4-32.0); CHLORIDE 122 MMOL/L (99-107); CREATININE 1.71 MG/DL (0.60-1.10); GLUCOSE 133 MG/DL (70-104); POTASSIUM 3.4 MMOL/L (3.5-5.1); TOTAL CARBON DIOXIDE 27.4 MMOL/L (24-32); TOTAL PROTEIN 4.2 G/DL (6.4-8.2); eGFR 40 ML/MIN
[2018-07-21 20:49] LABS: SODIUM 157 MMOL/L (135-145)
[2018-07-21] MEDS: atorvastatin 20mg tablet PO SCH (21:00)
[2018-07-21] MEDS: insulin glargine (Lantus) pen - multi-dose SQ SCH (21:45)
[2018-07-21] MEDS: normal saline 1000ml 1,000 ML IV SCH (23:30)
[2018-07-22] VITALS (24 sets, daily range): BP systolic 85–131; BP diastolic 57–81
[2018-07-22] MEDS: piperacillin/tazo 3.375gm/50ml 50 ML IV SCH ×3 (00:21→15:35)
[2018-07-22] MEDS: pantoprazole 40MG/NS 100ML BAG 100 ML IV SCH ×5 (01:00→20:31)
[2018-07-22 02:45] LABS: BASOPHILS % (AUTO) 0.1 % (0-1); EOSINOPHILS # (AUTO) 0.1 X10'3 (0-0.9); EOSINOPHILS % (AUTO) 1.1 % (0-6); HEMATOCRIT 27.4 % (42.0-52.0); HEMOGLOBIN 9.1 g/dl (14.0-17.9); LYMPHOCYTES # (AUTO) 1.4 X10'3 (1.1-4.8); LYMPHOCYTES % (AUTO) 12.9 % (21-51); MEAN CORPUSCULAR HEMOGLOBIN 30.4 PG (27.0-31.0); MEAN CORPUSCULAR HGB CONC 33.4 % (33.0-36.5); MEAN CORPUSCULAR VOLUME 91.1 FL (78-98); MEAN PLATELET VOLUME 9.8 FL (7.4-10.4); MONOCYTES # (AUTO) 0.8 X10'3 (0-0.9); MONOCYTES % (AUTO) 7.4 % (2-12); NEUTROPHILS # (AUTO) 8.7 X10'3 (1.8-7.7); NEUTROPHILS % (AUTO) 78.5 % (42-75); PLATELET COUNT 161 X10'3 (140-440); RED BLOOD COUNT 3.01 X10'6 (4.70-6.10); RED CELL DISTRIBUTION WIDTH 16.6 % (11.5-14.5); WHITE BLOOD COUNT 11.1 X10'3 (4.5-11.0)
[2018-07-22 03:09] LABS: ALANINE AMINOTRANSFERASE 180 U/L (12-78); ALBUMIN 1.7 G/DL (3.4-5.0); ALBUMIN/GLOBULIN RATIO 0.7 (1.1-1.5); ALKALINE PHOSPHATASE 49 IU/L (46-116); ANION GAP 11 (8-16); ASPARTATE AMINO TRANSFERASE 144 U/L (10-37); BILIRUBIN,TOTAL 0.5 MG/DL (0.1-1.0); BLOOD UREA NITROGEN 56 MG/DL (7-18); BUN/CREATININE RATIO 34.1 (5.4-32.0); CALCIUM 7.8 MG/DL (8.5-10.1); CHLORIDE 122 MMOL/L (99-107); CREATININE 1.64 MG/DL (0.60-1.10); GLUCOSE 126 MG/DL (70-104); MAGNESIUM 1.8 MG/DL (1.5-2.4); POTASSIUM 3.4 MMOL/L (3.5-5.1); TOTAL PROTEIN 4.2 G/DL (6.4-8.2); eGFR 42 ML/MIN
[2018-07-22 03:30] LABS: ABG BASE EXCESS -1.5 mmol/L (-2.0-3.0); ABG HCO3 23.4 mmol/L (22.0-26.0); ABG OXYGEN SATURATION 95.7 % (95-98); ABG PCO2 (T) 41.1 mmHg (35.0-48.0); ABG PH (T) 7.375 (7.350-7.450); ABG PO2 (T) 92.7 mmHg (83-108); ALLEN'S TEST Positive; FCOHb 0.3 % (0.5-1.5); FMetHb 0.1 % (0.3-1.12); FO2Hb 95.3 % (94-100); MINUTE VOLUME 8 L/min; PATIENT TEMPERATURE 37.4; PEEP 5 cm H2O; RESPIRATORY RATE 18 b/min; RESPIRATORY RATE (OBSERVED) 21 b/min; TIDAL VOLUME 400 mL; TOTAL HEMOGLOBIN 10.5 G/dl (14.0-18.0)
[2018-07-22 03:32] LABS: SODIUM 158 MMOL/L (135-145)
[2018-07-22] MEDS: normal saline 1000ml 1,000 ML IV SCH ×2 (04:00→09:05)
[2018-07-22] MEDS: potassium Cl 40MEQ/250ML bag 250 ML IV PRN (05:41)
[2018-07-22 06:12] LABS: CLARITY,URINE CLEAR (Clear); COLOR,URINE YELLOW (Yellow); GLUCOSE, URINE NEGATIVE (Neg); KETONES,URINE NEGATIVE (Neg); LEUKOCYTE ESTERASE ,URINE NEGATIVE (Neg); NITRITES, URINE NEGATIVE (Neg); OCCULT BLOOD,URINE SMALL (Neg); PH,URINE 5.5 (4.8-8.0); PROTEIN,URINE NEGATIVE (Neg); UROBILINOGEN,URINE 0.2 E.U/dL (0.2-1.0)
[2018-07-22 06:18] LABS: UA COLLECTION TYPE NON-SPECIFIED
[2018-07-22 06:20] LABS: BACTERIA,URINE NONE SEEN /HPF (Neg); MUCUS STRANDS NONE SEEN /LPF (Neg); RBC,URINE 0-2 /HPF (0-2); SQUAMOUS EPITHELIAL CELL,UR NONE SEEN /LPF (FEW); WBC,URINE 0-4 /HPF (0-4)
[2018-07-22 06:21] LABS: URIC ACID CRYSTALS 1+ /HPF (NEGATIVE)
[2018-07-22 06:52] LABS: PHOSPHORUS 3.5 MG/DL (2.3-4.5)
[2018-07-22 06:53] LABS: UA EOSINOPHILS NO EOS /HPF
[2018-07-22] MEDS: dextrose 5%-water 1,000 ML IV SCH (07:31)
[2018-07-22] MEDS: K and/or MAG REPLACEMENT MC SCH (08:00)
[2018-07-22] MEDS: mineral oil/petrolatum ophthal oint EACHEYE SCH ×3 (08:00→20:32)
[2018-07-22] MEDS: levetiracetam inj 1,000 MG in normal saline 100ml IV soln 90 ML IV SCH (09:00)
[2018-07-22] MEDS: midazolam 100mg in NS 100ml 100 ML IV PRN (09:02)
[2018-07-22] MEDS: levoTHYROXINE sod inj. 100mcg/5 ml vial IV SCH (09:02)
[2018-07-22] MEDS: lactobacillus rhamnosus 10,000 MMU CELLS/CAPSULE PO SCH ×2 (09:02→20:30)
[2018-07-22] MEDS: linezolid 600mg/300ml PREMIX 300 ML IV SCH ×2 (09:02→20:31)
[2018-07-22] MEDS: insulin Lispro (HumaLOG) vial - multi-dose SQ SCH (09:05)
[2018-07-22] MEDS: DOBUTamine-DoBUTrex 500mg/D5W 250 ML IV SCH (09:06)
[2018-07-22] MEDS ORDERED: sodium chloride 0.45% 1,000 ML IV SCH (09:35)
[2018-07-22 11:41] LABS: OXYGEN SATURATION (MIXED VEN) 74.2 % (60-80)
[2018-07-22] MEDS: dextrose 5%-1/2 normal saline 1,000 ML IV SCH ×3 (11:55→21:55)
[2018-07-22 12:01] LABS: BASOPHILS % (AUTO) 0 % (0-1); EOSINOPHILS # (AUTO) 0.3 X10'3 (0-0.9); EOSINOPHILS % (AUTO) 2.4 % (0-6); HEMATOCRIT 26.5 % (42.0-52.0); HEMOGLOBIN 8.9 g/dl (14.0-17.9); LYMPHOCYTES % (AUTO) 8.6 % (21-51); MEAN CORPUSCULAR HEMOGLOBIN 30.7 PG (27.0-31.0); MEAN CORPUSCULAR HGB CONC 33.5 % (33.0-36.5); MEAN CORPUSCULAR VOLUME 91.6 FL (78-98); MEAN PLATELET VOLUME 9.6 FL (7.4-10.4); MONOCYTES # (AUTO) 0.8 X10'3 (0-0.9); MONOCYTES % (AUTO) 6.5 % (2-12); NEUTROPHILS # (AUTO) 9.8 X10'3 (1.8-7.7); NEUTROPHILS % (AUTO) 82.5 % (42-75); PLATELET COUNT 159 X10'3 (140-440); RED CELL DISTRIBUTION WIDTH 16.6 % (11.5-14.5); WHITE BLOOD COUNT 11.9 X10'3 (4.5-11.0)
[2018-07-22 12:11] LABS: ALANINE AMINOTRANSFERASE 172 U/L (12-78); ALBUMIN 1.6 G/DL (3.4-5.0); ALBUMIN/GLOBULIN RATIO 0.6 (1.1-1.5); ALKALINE PHOSPHATASE 52 IU/L (46-116); ANION GAP 6 (8-16); ASPARTATE AMINO TRANSFERASE 107 U/L (10-37); BILIRUBIN,TOTAL 0.4 MG/DL (0.1-1.0); BLOOD UREA NITROGEN 44 MG/DL (7-18); BUN/CREATININE RATIO 30.1 (5.4-32.0); CALCIUM 7.5 MG/DL (8.5-10.1); CHLORIDE 120 MMOL/L (99-107); CREATININE 1.46 MG/DL (0.60-1.10); GLUCOSE 260 MG/DL (70-104); POTASSIUM 3.7 MMOL/L (3.5-5.1); SODIUM 153 MMOL/L (135-145); TOTAL CARBON DIOXIDE 27.1 MMOL/L (24-32); TOTAL PROTEIN 4.2 G/DL (6.4-8.2); eGFR 48 ML/MIN
[2018-07-22 12:42] LABS: ANISOCYTOSIS 1+; NUCLEATED RED BLOOD CELLS 2 /100WBC (0-0); PLATELET ESTIMATE NORMAL; TOTAL CELLS COUNTED 100
[2018-07-22 12:43] LABS: POLYCHROMASIA 1+
[2018-07-22] MEDS: levetiracetam 250mg tablet PO SCH ×2 (13:06→20:30)
[2018-07-22] MEDS: insulin regular, human vial - multi-dose SQ SCH ×2 (14:23→20:54)
[2018-07-22 15:15] LABS: H PYLORI ANTIBODY NEGATIVE (Neg)
[2018-07-22] MEDS ORDERED: albumin (Human) 5% 250ml 500 ML IV ONE (15:25)
[2018-07-22] MEDS: metroNIDAZOLE 500mg tablet PO SCH (15:27)
[2018-07-22] MEDS: DOXYCYCLINE 100MG CAPSULE PO SCH (17:51)
[2018-07-22] MEDS: atorvastatin 20mg tablet PO SCH (20:30)
[2018-07-22] MEDS: insulin glargine (Lantus) pen - multi-dose SQ SCH (20:46)
[2018-07-23] VITALS (24 sets, daily range): BP systolic 99–167; BP diastolic 53–96
[2018-07-23] MEDS: piperacillin/tazo 3.375gm/50ml 50 ML IV SCH ×3 (00:39→16:15)
[2018-07-23] MEDS: metroNIDAZOLE 500mg tablet PO SCH ×3 (00:39→16:14)
[2018-07-23] MEDS: dextrose 5%-1/2 normal saline 1,000 ML IV SCH ×3 (00:41→21:49)
[2018-07-23] MEDS: mineral oil/petrolatum ophthal oint EACHEYE SCH ×4 (01:32→20:01)
[2018-07-23] MEDS: pantoprazole 40MG/NS 100ML BAG 100 ML IV SCH ×5 (01:32→21:42)
[2018-07-23] MEDS: insulin regular, human vial - multi-dose SQ SCH ×4 (02:02→21:49)
[2018-07-23 03:31] LABS: ABG BASE EXCESS -2.7 mmol/L (-2.0-3.0); ABG HCO3 22.2 mmol/L (22.0-26.0); ABG OXYGEN SATURATION 96.1 % (95-98); ABG PCO2 (T) 39.6 mmHg (35.0-48.0); ABG PH (T) 7.369 (7.350-7.450); ALLEN'S TEST Positive; FCOHb 0.3 % (0.5-1.5); FMetHb 0.2 % (0.3-1.12); FO2Hb 95.6 % (94-100); MINUTE VOLUME 9 L/min; PATIENT TEMPERATURE 37.6; PEEP 5 cm H2O; RESPIRATORY RATE 18 b/min; RESPIRATORY RATE (OBSERVED) 19 b/min; TIDAL VOLUME 400 mL; TOTAL HEMOGLOBIN 8.9 G/dl (14.0-18.0)
[2018-07-23 03:42] LABS: BASOPHILS % (AUTO) 0 % (0-1); EOSINOPHILS # (AUTO) 0.4 X10'3 (0-0.9); EOSINOPHILS % (AUTO) 3.7 % (0-6); HEMATOCRIT 23.2 % (42.0-52.0); HEMOGLOBIN 7.8 g/dl (14.0-17.9); LYMPHOCYTES # (AUTO) 0.9 X10'3 (1.1-4.8); LYMPHOCYTES % (AUTO) 7.7 % (21-51); MEAN CORPUSCULAR HEMOGLOBIN 30.9 PG (27.0-31.0); MEAN CORPUSCULAR HGB CONC 33.6 % (33.0-36.5); MEAN CORPUSCULAR VOLUME 92.1 FL (78-98); MONOCYTES # (AUTO) 0.7 X10'3 (0-0.9); MONOCYTES % (AUTO) 5.8 % (2-12); NEUTROPHILS # (AUTO) 9.6 X10'3 (1.8-7.7); NEUTROPHILS % (AUTO) 82.8 % (42-75); PLATELET COUNT 146 X10'3 (140-440); RED BLOOD COUNT 2.53 X10'6 (4.70-6.10); RED CELL DISTRIBUTION WIDTH 16.8 % (11.5-14.5); WHITE BLOOD COUNT 11.6 X10'3 (4.5-11.0)
[2018-07-23 03:53] LABS: ALANINE AMINOTRANSFERASE 215 U/L (12-78); ALBUMIN 1.8 G/DL (3.4-5.0); ALBUMIN/GLOBULIN RATIO 0.8 (1.1-1.5); ALKALINE PHOSPHATASE 54 IU/L (46-116); ANION GAP 7 (8-16); ASPARTATE AMINO TRANSFERASE 124 U/L (10-37); BILIRUBIN,TOTAL 0.5 MG/DL (0.1-1.0); BLOOD UREA NITROGEN 32 MG/DL (7-18); BUN/CREATININE RATIO 24.4 (5.4-32.0); CALCIUM 7.6 MG/DL (8.5-10.1); CHLORIDE 121 MMOL/L (99-107); CREATININE 1.31 MG/DL (0.60-1.10); GLUCOSE 147 MG/DL (70-104); MAGNESIUM 1.7 MG/DL (1.5-2.4); PHOSPHORUS 2.5 MG/DL (2.3-4.5); POTASSIUM 3.1 MMOL/L (3.5-5.1); TOTAL CARBON DIOXIDE 26.7 MMOL/L (24-32); TOTAL PROTEIN 4.2 G/DL (6.4-8.2); eGFR 54 ML/MIN
[2018-07-23 04:06] LABS: SODIUM 155 MMOL/L (135-145)
[2018-07-23] MEDS: NORepinephrine 8 MG in normal saline 250ml IV soln IV SCH (04:10)
[2018-07-23] MEDS: potassium Cl 40MEQ/250ML bag 250 ML IV PRN (05:01)
[2018-07-23] MEDS: K and/or MAG REPLACEMENT MC SCH (08:00)
[2018-07-23] MEDS: DOXYCYCLINE 100MG CAPSULE PO SCH ×2 (08:59→17:56)
[2018-07-23] MEDS: levetiracetam 250mg tablet PO SCH ×3 (08:59→21:42)
[2018-07-23] MEDS: lactobacillus rhamnosus 10,000 MMU CELLS/CAPSULE PO SCH ×2 (08:59→20:01)
[2018-07-23] MEDS: levoTHYROXINE 175mcg tablet PO SCH (09:04)
[2018-07-23] MEDS: carvedilol 6.25mg tablet PO SCH ×2 (09:37→20:01)
[2018-07-23] MEDS: DOBUTamine-DoBUTrex 500mg/D5W 250 ML IV SCH ×2 (09:45→16:34)
[2018-07-23] MEDS: morphine/NS 100mg/100ml bag 100 ML IV SCH (10:47)
[2018-07-23] MEDS: bismuth subsalicylate 525mg/30ml oral suspension PO SCH ×2 (13:24→20:01)
[2018-07-23] MEDS: atorvastatin 20mg tablet PO SCH (21:42)
[2018-07-23] MEDS: insulin glargine (Lantus) pen - multi-dose SQ SCH (21:48)
[2018-07-24] VITALS (24 sets, daily range): BP systolic 110–176; BP diastolic 75–111
[2018-07-24] MEDS: piperacillin/tazo 3.375gm/50ml 50 ML IV SCH ×3 (00:05→16:37)
[2018-07-24] MEDS: metroNIDAZOLE 500mg tablet PO SCH ×2 (00:05→07:54)
[2018-07-24] MEDS: insulin regular, human vial - multi-dose SQ SCH (02:22)
[2018-07-24] MEDS: bismuth subsalicylate 525mg/30ml oral suspension PO SCH ×2 (02:32→07:53)
[2018-07-24] MEDS: mineral oil/petrolatum ophthal oint EACHEYE SCH ×4 (02:32→20:00)
[2018-07-24 02:42] LABS: BASOPHILS % (AUTO) 0 % (0-1); EOSINOPHILS # (AUTO) 0.4 X10'3 (0-0.9); EOSINOPHILS % (AUTO) 3.5 % (0-6); HEMATOCRIT 24.8 % (42.0-52.0); HEMOGLOBIN 8.1 g/dl (14.0-17.9); LYMPHOCYTES # (AUTO) 0.8 X10'3 (1.1-4.8); LYMPHOCYTES % (AUTO) 6.3 % (21-51); MEAN CORPUSCULAR HEMOGLOBIN 30.4 PG (27.0-31.0); MEAN CORPUSCULAR HGB CONC 32.6 % (33.0-36.5); MEAN CORPUSCULAR VOLUME 93.3 FL (78-98); MEAN PLATELET VOLUME 9.5 FL (7.4-10.4); MONOCYTES # (AUTO) 0.7 X10'3 (0-0.9); MONOCYTES % (AUTO) 5.5 % (2-12); NEUTROPHILS # (AUTO) 10.8 X10'3 (1.8-7.7); NEUTROPHILS % (AUTO) 84.7 % (42-75); PLATELET COUNT 170 X10'3 (140-440); RED BLOOD COUNT 2.66 X10'6 (4.70-6.10); RED CELL DISTRIBUTION WIDTH 16.3 % (11.5-14.5); WHITE BLOOD COUNT 12.7 X10'3 (4.5-11.0)
[2018-07-24 02:55] LABS: ALANINE AMINOTRANSFERASE 470 U/L (12-78); ALBUMIN 1.8 G/DL (3.4-5.0); ALBUMIN/GLOBULIN RATIO 0.6 (1.1-1.5); ALKALINE PHOSPHATASE 76 IU/L (46-116); ANION GAP 5 (8-16); ASPARTATE AMINO TRANSFERASE 238 U/L (10-37); BILIRUBIN,TOTAL 0.5 MG/DL (0.1-1.0); BLOOD UREA NITROGEN 19 MG/DL (7-18); BUN/CREATININE RATIO 19.4 (5.4-32.0); CALCIUM 7.6 MG/DL (8.5-10.1); CHLORIDE 117 MMOL/L (99-107); CREATININE 0.98 MG/DL (0.60-1.10); GLUCOSE 163 MG/DL (70-104); MAGNESIUM 1.7 MG/DL (1.5-2.4); PHOSPHORUS 2.4 MG/DL (2.3-4.5); PREALBUMIN 9.1 MG/DL (19-36); SODIUM 151 MMOL/L (135-145); TOTAL CARBON DIOXIDE 28.6 MMOL/L (24-32); TOTAL PROTEIN 4.6 G/DL (6.4-8.2); eGFR 76 ML/MIN
[2018-07-24] MEDS: pantoprazole 40MG/NS 100ML BAG 100 ML IV SCH ×2 (03:19→07:54)
[2018-07-24] MEDS: potassium Cl 40MEQ/250ML bag 250 ML IV PRN ×2 (03:52→06:36)
[2018-07-24 04:05] LABS: ABG BASE EXCESS -1.8 mmol/L (-2.0-3.0); ABG HCO3 21.9 mmol/L (22.0-26.0); ABG OXYGEN SATURATION 94.2 % (95-98); ABG PCO2 (T) 34.2 mmHg (35.0-48.0); ABG PH (T) 7.428 (7.350-7.450); ABG PO2 (T) 77.1 mmHg (83-108); ALLEN'S TEST Positive; FCOHb 0.3 % (0.5-1.5); FMetHb 0.2 % (0.3-1.12); FO2Hb 93.7 % (94-100); MINUTE VOLUME 11 L/min; PATIENT TEMPERATURE 37.8; PEEP 5 cm H2O; RESPIRATORY RATE (OBSERVED) 20 b/min; TIDAL VOLUME 680 mL; TOTAL HEMOGLOBIN 9.5 G/dl (14.0-18.0)
[2018-07-24] MEDS: levetiracetam 250mg tablet PO SCH ×3 (07:54→21:26)
[2018-07-24] MEDS: DOXYCYCLINE 100MG CAPSULE PO SCH (07:54)
[2018-07-24] MEDS: lactobacillus rhamnosus 10,000 MMU CELLS/CAPSULE PO SCH ×2 (07:54→20:29)
[2018-07-24] MEDS: levoTHYROXINE 175mcg tablet PO SCH (07:54)
[2018-07-24] MEDS: K and/or MAG REPLACEMENT MC SCH (08:00)
[2018-07-24] MEDS: pantoprazole 40 MG vial IV SCH (20:28)
[2018-07-24] MEDS: carVEDilol 12.5mg tablet PO SCH (20:29)
[2018-07-24] MEDS: atorvastatin 20mg tablet PO SCH (21:26)
[2018-07-24] MEDS: insulin glargine (Lantus) pen - multi-dose SQ SCH (22:13)
[2018-07-25] VITALS (16 sets, daily range): BP systolic 109–174; BP diastolic 72–118
[2018-07-25] MEDS: piperacillin/tazo 3.375gm/50ml 50 ML IV SCH ×2 (00:24→07:22)
[2018-07-25] MEDS: potassium Cl 40MEQ/250ML bag 250 ML IV PRN ×2 (01:28→03:45)
[2018-07-25] MEDS: mineral oil/petrolatum ophthal oint EACHEYE SCH ×4 (02:00→20:00)
[2018-07-25 03:08] LABS: BASOPHILS % (AUTO) 0.1 % (0-1); EOSINOPHILS # (AUTO) 0.3 X10'3 (0-0.9); EOSINOPHILS % (AUTO) 2.2 % (0-6); HEMATOCRIT 27.2 % (42.0-52.0); HEMOGLOBIN 9.1 g/dl (14.0-17.9); LYMPHOCYTES # (AUTO) 0.8 X10'3 (1.1-4.8); LYMPHOCYTES % (AUTO) 6.4 % (21-51); MEAN CORPUSCULAR HEMOGLOBIN 30.6 PG (27.0-31.0); MEAN CORPUSCULAR HGB CONC 33.5 % (33.0-36.5); MEAN CORPUSCULAR VOLUME 91.6 FL (78-98); MEAN PLATELET VOLUME 9.1 FL (7.4-10.4); MONOCYTES # (AUTO) 0.6 X10'3 (0-0.9); MONOCYTES % (AUTO) 4.3 % (2-12); NEUTROPHILS # (AUTO) 11.3 X10'3 (1.8-7.7); PLATELET COUNT 216 X10'3 (140-440); RED BLOOD COUNT 2.98 X10'6 (4.70-6.10); WHITE BLOOD COUNT 12.9 X10'3 (4.5-11.0)
[2018-07-25 03:27] LABS: ALANINE AMINOTRANSFERASE 451 U/L (12-78); ALBUMIN 1.9 G/DL (3.4-5.0); ALBUMIN/GLOBULIN RATIO 0.6 (1.1-1.5); ALKALINE PHOSPHATASE 87 IU/L (46-116); ANION GAP 5 (8-16); ASPARTATE AMINO TRANSFERASE 145 U/L (10-37); BILIRUBIN,TOTAL 0.6 MG/DL (0.1-1.0); BLOOD UREA NITROGEN 11 MG/DL (7-18); BUN/CREATININE RATIO 13.9 (5.4-32.0); CALCIUM 7.6 MG/DL (8.5-10.1); CHLORIDE 109 MMOL/L (99-107); CREATININE 0.79 MG/DL (0.60-1.10); GLUCOSE 107 MG/DL (70-104); MAGNESIUM 1.7 MG/DL (1.5-2.4); PHOSPHORUS 2.6 MG/DL (2.3-4.5); POTASSIUM 3.3 MMOL/L (3.5-5.1); SODIUM 145 MMOL/L (135-145); TOTAL CARBON DIOXIDE 30.6 MMOL/L (24-32); TOTAL PROTEIN 5.1 G/DL (6.4-8.2); eGFR > 90 ML/MIN
[2018-07-25] MEDS ORDERED: nitroGLYCERIN-Tridil 50MG/D5W 250 ML IV SCH (06:35)
[2018-07-25] MEDS: levoTHYROXINE 175mcg tablet PO SCH (07:21)
[2018-07-25] MEDS: pantoprazole 40 MG vial IV SCH ×2 (07:21→21:34)
[2018-07-25] MEDS: lactobacillus rhamnosus 10,000 MMU CELLS/CAPSULE PO SCH ×2 (07:22→21:35)
[2018-07-25] MEDS: carVEDilol 12.5mg tablet PO SCH ×2 (07:22→21:34)
[2018-07-25] MEDS: levetiracetam 250mg tablet PO SCH ×3 (07:22→21:35)
[2018-07-25] MEDS: K and/or MAG REPLACEMENT MC SCH (08:54)
[2018-07-25] MEDS ORDERED: isosorbide mononitrate 30mg tab.SR.24H PO ONE (08:54)
[2018-07-25] MEDS: insulin Lispro (HumaLOG) vial - multi-dose SQ SCH ×3 (09:25→19:52)
[2018-07-25] MEDS: atorvastatin 20mg tablet PO SCH (21:34)
[2018-07-25] MEDS: insulin glargine (Lantus) pen - multi-dose SQ SCH (23:03)
[2018-07-26] VITALS (7 sets, daily range): BP systolic 113–192; BP diastolic 68–109
[2018-07-26] MEDS: mineral oil/petrolatum ophthal oint EACHEYE SCH ×4 (01:25→20:00)
[2018-07-26] MEDS ORDERED: hydrALAZINE 20mg/ml inj. IV PRN (03:15)
[2018-07-26] MEDS: K and/or MAG REPLACEMENT MC SCH (08:00)
[2018-07-26 08:09] LABS: BASOPHILS % (AUTO) 0.1 % (0-1); EOSINOPHILS # (AUTO) 0.4 X10'3 (0-0.9); EOSINOPHILS % (AUTO) 2.6 % (0-6); HEMOGLOBIN 9.4 g/dl (14.0-17.9); LYMPHOCYTES # (AUTO) 1.4 X10'3 (1.1-4.8); MEAN CORPUSCULAR HEMOGLOBIN 30.8 PG (27.0-31.0); MEAN CORPUSCULAR HGB CONC 33.4 % (33.0-36.5); MEAN CORPUSCULAR VOLUME 92.3 FL (78-98); MONOCYTES # (AUTO) 0.6 X10'3 (0-0.9); MONOCYTES % (AUTO) 4.6 % (2-12); NEUTROPHILS # (AUTO) 11.6 X10'3 (1.8-7.7); NEUTROPHILS % (AUTO) 82.7 % (42-75); PLATELET COUNT 243 X10'3 (140-440); RED BLOOD COUNT 3.03 X10'6 (4.70-6.10); RED CELL DISTRIBUTION WIDTH 15.8 % (11.5-14.5)
[2018-07-26] MEDS: levetiracetam 250mg tablet PO SCH ×3 (08:20→22:41)
[2018-07-26] MEDS: levoTHYROXINE 175mcg tablet PO SCH (08:20)
[2018-07-26] MEDS: pantoprazole 40 MG vial IV SCH ×2 (08:21→22:40)
[2018-07-26] MEDS: carVEDilol 12.5mg tablet PO SCH ×2 (08:21→22:41)
[2018-07-26] MEDS: lactobacillus rhamnosus 10,000 MMU CELLS/CAPSULE PO SCH ×2 (08:21→22:41)
[2018-07-26] MEDS: isosorbide mononitrate 30mg tab.SR.24H PO SCH (08:21)
[2018-07-26 08:23] LABS: ALANINE AMINOTRANSFERASE 321 U/L (12-78); ALBUMIN 1.9 G/DL (3.4-5.0); ALBUMIN/GLOBULIN RATIO 0.6 (1.1-1.5); ALKALINE PHOSPHATASE 78 IU/L (46-116); ANION GAP 9 (8-16); ASPARTATE AMINO TRANSFERASE 79 U/L (10-37); BILIRUBIN,TOTAL 0.4 MG/DL (0.1-1.0); BLOOD UREA NITROGEN 11 MG/DL (7-18); BUN/CREATININE RATIO 13.9 (5.4-32.0); CALCIUM 7.8 MG/DL (8.5-10.1); CHLORIDE 106 MMOL/L (99-107); CREATININE 0.79 MG/DL (0.60-1.10); GLUCOSE 99 MG/DL (70-104); MAGNESIUM 1.7 MG/DL (1.5-2.4); PHOSPHORUS 2.4 MG/DL (2.3-4.5); SODIUM 143 MMOL/L (135-145); TOTAL CARBON DIOXIDE 28.5 MMOL/L (24-32); TOTAL PROTEIN 5.1 G/DL (6.4-8.2); eGFR > 90 ML/MIN
[2018-07-26] MEDS ORDERED: magnesium 4gm in 100ml NS 100 ML IV PRN (09:40)
[2018-07-26] MEDS ORDERED: potassium Cl 20 mEq SR tablet PO PRN (09:40)
[2018-07-26] MEDS ORDERED: magnesium Cl slow-release 64mg tablet PO PRN (09:40)
[2018-07-26] MEDS: potassium Cl 20 mEq SR tablet PO PRN ×2 (09:58→14:09)
[2018-07-26] MEDS: insulin Lispro (HumaLOG) vial - multi-dose SQ SCH ×3 (10:01→19:09)
[2018-07-26] MEDS: atorvastatin 20mg tablet PO SCH (22:41)
[2018-07-26] MEDS: insulin glargine (Lantus) pen - multi-dose SQ SCH (22:51)
[2018-07-27 01:42] LABS: BASOPHILS % (AUTO) 0.3 % (0-1); EOSINOPHILS # (AUTO) 0.2 X10'3 (0-0.9); EOSINOPHILS % (AUTO) 1.7 % (0-6); HEMATOCRIT 27.2 % (42.0-52.0); HEMOGLOBIN 9.1 g/dl (14.0-17.9); LYMPHOCYTES # (AUTO) 1.4 X10'3 (1.1-4.8); LYMPHOCYTES % (AUTO) 11.9 % (21-51); MEAN CORPUSCULAR HEMOGLOBIN 30.6 PG (27.0-31.0); MEAN CORPUSCULAR HGB CONC 33.5 % (33.0-36.5); MEAN CORPUSCULAR VOLUME 91.5 FL (78-98); MEAN PLATELET VOLUME 8.7 FL (7.4-10.4); MONOCYTES # (AUTO) 0.7 X10'3 (0-0.9); MONOCYTES % (AUTO) 6.1 % (2-12); NEUTROPHILS # (AUTO) 9.3 X10'3 (1.8-7.7); PLATELET COUNT 279 X10'3 (140-440); RED BLOOD COUNT 2.97 X10'6 (4.70-6.10); RED CELL DISTRIBUTION WIDTH 16.4 % (11.5-14.5); WHITE BLOOD COUNT 11.7 X10'3 (4.5-11.0)
[2018-07-27 01:49] LABS: ALANINE AMINOTRANSFERASE 255 U/L (12-78); ALBUMIN 1.9 G/DL (3.4-5.0); ALBUMIN/GLOBULIN RATIO 0.6 (1.1-1.5); ALKALINE PHOSPHATASE 83 IU/L (46-116); ANION GAP 7 (8-16); ASPARTATE AMINO TRANSFERASE 54 U/L (10-37); BILIRUBIN,TOTAL 0.3 MG/DL (0.1-1.0); BLOOD UREA NITROGEN 14 MG/DL (7-18); BUN/CREATININE RATIO 19.2 (5.4-32.0); CHLORIDE 107 MMOL/L (99-107); CREATININE 0.73 MG/DL (0.60-1.10); GLUCOSE 91 MG/DL (70-104); MAGNESIUM 1.8 MG/DL (1.5-2.4); PHOSPHORUS 2.7 MG/DL (2.3-4.5); POTASSIUM 3.4 MMOL/L (3.5-5.1); SODIUM 140 MMOL/L (135-145); TOTAL CARBON DIOXIDE 26.4 MMOL/L (24-32); eGFR > 90 ML/MIN
[2018-07-27 02:00] VITALS: BP 119/71
[2018-07-27] MEDS: mineral oil/petrolatum ophthal oint EACHEYE SCH ×4 (02:00→20:00)
[2018-07-27] MEDS ORDERED: potassium Cl 20 mEq SR tablet PO PRN (04:55)
[2018-07-27] MEDS: potassium Cl 20 mEq SR tablet PO PRN ×3 (05:09→13:32)
[2018-07-27 06:00] VITALS: BP 155/102
[2018-07-27] MEDS: K and/or MAG REPLACEMENT MC SCH (08:00)
[2018-07-27] MEDS: isosorbide mononitrate 30mg tab.SR.24H PO SCH (08:42)
[2018-07-27] MEDS: lactobacillus rhamnosus 10,000 MMU CELLS/CAPSULE PO SCH ×2 (08:43→20:58)
[2018-07-27] MEDS: pantoprazole 40 MG vial IV SCH ×2 (08:43→20:59)
[2018-07-27] MEDS: carVEDilol 12.5mg tablet PO SCH ×2 (08:43→20:59)
[2018-07-27] MEDS: levetiracetam 250mg tablet PO SCH ×3 (08:43→20:58)
[2018-07-27] MEDS: levoTHYROXINE 175mcg tablet PO SCH (08:55)
[2018-07-27] MEDS: insulin Lispro (HumaLOG) vial - multi-dose SQ SCH ×2 (10:10→13:38)
[2018-07-27 11:00] VITALS: BP 85/57
[2018-07-27 15:00] VITALS: BP 98/61
[2018-07-27 19:00] VITALS: BP 113/88
[2018-07-27] MEDS: atorvastatin 20mg tablet PO SCH (20:58)
[2018-07-27] MEDS: insulin glargine (Lantus) pen - multi-dose SQ SCH (21:23)
[2018-07-27 23:00] VITALS: BP 97/65
[2018-07-28] MEDS: mineral oil/petrolatum ophthal oint EACHEYE SCH ×4 (02:00→20:00)
[2018-07-28 03:00] VITALS: BP 141/79
[2018-07-28 06:31] LABS: PREALBUMIN 12.7 MG/DL (19-36)
[2018-07-28 06:59] VITALS: BP 140/90
[2018-07-28] MEDS: K and/or MAG REPLACEMENT MC SCH (08:00)
[2018-07-28] MEDS: insulin Lispro (HumaLOG) vial - multi-dose SQ SCH ×3 (08:24→18:52)
[2018-07-28] MEDS: isosorbide mononitrate 30mg tab.SR.24H PO SCH (08:25)
[2018-07-28] MEDS: carVEDilol 12.5mg tablet PO SCH ×2 (08:25→20:52)
[2018-07-28] MEDS: lactobacillus rhamnosus 10,000 MMU CELLS/CAPSULE PO SCH ×2 (08:25→20:52)
[2018-07-28] MEDS: levetiracetam 250mg tablet PO SCH ×3 (08:25→20:52)
[2018-07-28] MEDS: pantoprazole 40 MG vial IV SCH ×2 (08:25→20:53)
[2018-07-28] MEDS: levoTHYROXINE 175mcg tablet PO SCH (08:25)
[2018-07-28 15:00] VITALS: BP 126/97
[2018-07-28 18:00] VITALS: BP 150/109
[2018-07-28] MEDS: atorvastatin 20mg tablet PO SCH (20:53)
[2018-07-28] MEDS: insulin glargine (Lantus) pen - multi-dose SQ SCH (21:24)
[2018-07-28 23:00] VITALS: BP 156/78
[2018-07-29] MEDS: mineral oil/petrolatum ophthal oint EACHEYE SCH ×3 (02:00→14:00)
[2018-07-29 03:00] VITALS: BP 120/88
[2018-07-29 06:00] VITALS: BP 156/98
[2018-07-29] MEDS: K and/or MAG REPLACEMENT MC SCH (08:00)
[2018-07-29] MEDS: isosorbide mononitrate 30mg tab.SR.24H PO SCH (08:02)
[2018-07-29] MEDS: lactobacillus rhamnosus 10,000 MMU CELLS/CAPSULE PO SCH ×2 (08:02→21:30)
[2018-07-29] MEDS: pantoprazole 40 MG vial IV SCH ×2 (08:02→21:29)
[2018-07-29] MEDS: levoTHYROXINE 175mcg tablet PO SCH (08:02)
[2018-07-29] MEDS: carVEDilol 12.5mg tablet PO SCH ×2 (08:02→21:30)
[2018-07-29] MEDS: levetiracetam 250mg tablet PO SCH ×3 (08:02→21:30)
[2018-07-29] MEDS: insulin Lispro (HumaLOG) vial - multi-dose SQ SCH ×3 (08:06→19:23)
[2018-07-29 11:00] VITALS: BP 128/77
[2018-07-29 15:00] VITALS: BP 96/43
[2018-07-29 19:00] VITALS: BP 97/72
[2018-07-29] MEDS: atorvastatin 20mg tablet PO SCH (21:29)
[2018-07-29] MEDS: insulin glargine (Lantus) pen - multi-dose SQ SCH (21:43)
[2018-07-29 23:00] VITALS: BP 107/56
[2018-07-30] VITALS (7 sets, daily range): BP systolic 77–139; BP diastolic 51–82
[2018-07-30] MEDS: K and/or MAG REPLACEMENT MC SCH (08:00)
[2018-07-30] MEDS: pantoprazole 40 MG vial IV SCH ×2 (08:40→19:51)
[2018-07-30] MEDS: levetiracetam 250mg tablet PO SCH ×3 (08:40→20:23)
[2018-07-30] MEDS: lactobacillus rhamnosus 10,000 MMU CELLS/CAPSULE PO SCH ×2 (08:40→19:51)
[2018-07-30] MEDS: carVEDilol 12.5mg tablet PO SCH ×2 (08:40→19:51)
[2018-07-30] MEDS: levoTHYROXINE 175mcg tablet PO SCH (08:40)
[2018-07-30] MEDS: isosorbide mononitrate 30mg tab.SR.24H PO SCH (08:40)
[2018-07-30] MEDS: insulin Lispro (HumaLOG) vial - multi-dose SQ SCH ×3 (09:08→17:00)
[2018-07-30 12:04] LABS: BASOPHILS % (AUTO) 0.6 % (0-1); EOSINOPHILS # (AUTO) 0.2 X10'3 (0-0.9); EOSINOPHILS % (AUTO) 2.7 % (0-6); HEMATOCRIT 26.5 % (42.0-52.0); HEMOGLOBIN 8.8 g/dl (14.0-17.9); LYMPHOCYTES # (AUTO) 1.3 X10'3 (1.1-4.8); LYMPHOCYTES % (AUTO) 17.1 % (21-51); MEAN CORPUSCULAR HEMOGLOBIN 30.5 PG (27.0-31.0); MEAN CORPUSCULAR HGB CONC 33.1 % (33.0-36.5); MEAN CORPUSCULAR VOLUME 92.1 FL (78-98); MEAN PLATELET VOLUME 8.3 FL (7.4-10.4); MONOCYTES # (AUTO) 0.5 X10'3 (0-0.9); MONOCYTES % (AUTO) 6.2 % (2-12); NEUTROPHILS # (AUTO) 5.5 X10'3 (1.8-7.7); NEUTROPHILS % (AUTO) 73.4 % (42-75); PLATELET COUNT 358 X10'3 (140-440); RED BLOOD COUNT 2.88 X10'6 (4.70-6.10); RED CELL DISTRIBUTION WIDTH 16.1 % (11.5-14.5); WHITE BLOOD COUNT 7.5 X10'3 (4.5-11.0)
[2018-07-30 12:16] LABS: ALANINE AMINOTRANSFERASE 110 U/L (12-78); ALBUMIN/GLOBULIN RATIO 0.6 (1.1-1.5); ALKALINE PHOSPHATASE 72 IU/L (46-116); ANION GAP 8 (8-16); ASPARTATE AMINO TRANSFERASE 27 U/L (10-37); BILIRUBIN,TOTAL 0.4 MG/DL (0.1-1.0); BLOOD UREA NITROGEN 11 MG/DL (7-18); BUN/CREATININE RATIO 12.8 (5.4-32.0); CALCIUM 8.2 MG/DL (8.5-10.1); CHLORIDE 104 MMOL/L (99-107); CREATININE 0.86 MG/DL (0.60-1.10); GLUCOSE 117 MG/DL (70-104); MAGNESIUM 1.8 MG/DL (1.5-2.4); PHOSPHORUS 3.1 MG/DL (2.3-4.5); POTASSIUM 3.4 MMOL/L (3.5-5.1); SODIUM 139 MMOL/L (135-145); TOTAL CARBON DIOXIDE 26.8 MMOL/L (24-32); TOTAL PROTEIN 5.5 G/DL (6.4-8.2); eGFR 88 ML/MIN
[2018-07-30] MEDS: atorvastatin 20mg tablet PO SCH (20:23)
[2018-07-30] MEDS: insulin glargine (Lantus) pen - multi-dose SQ SCH (20:56)
[2018-07-31 02:00] VITALS: BP 117/67
[2018-07-31 06:00] VITALS: BP 149/92
[2018-07-31] MEDS: pantoprazole 40 MG vial IV SCH (07:16)
[2018-07-31] MEDS: isosorbide mononitrate 30mg tab.SR.24H PO SCH (07:16)
[2018-07-31] MEDS: carVEDilol 12.5mg tablet PO SCH (07:17)
[2018-07-31] MEDS: lactobacillus rhamnosus 10,000 MMU CELLS/CAPSULE PO SCH (07:17)
[2018-07-31] MEDS: levoTHYROXINE 175mcg tablet PO SCH (07:17)
[2018-07-31] MEDS: levetiracetam 250mg tablet PO SCH ×2 (07:18→13:51)
[2018-07-31 07:28] VITALS: BP 144/88
[2018-07-31] MEDS: K and/or MAG REPLACEMENT MC SCH (08:00)
[2018-07-31] MEDS: insulin Lispro (HumaLOG) vial - multi-dose SQ SCH ×2 (10:07→13:51)
[2018-07-31 11:00] VITALS: BP 106/60
[2018-07-31] MEDS ORDERED: PANT-47 PO (14:21)
[2018-07-31] MEDS ORDERED: LEVO175T2 PO (14:21)
[2018-07-31] MEDS ORDERED: ISOS30TA6 PO (14:21)
[2018-07-31] MEDS ORDERED: ATOR20TA66 PO (14:21)
[2018-07-31] MEDS ORDERED: LEVE250T PO (14:21)
[2018-07-31] MEDS ORDERED: CARV-50 PO (14:21)
[2018-07-31 15:00] VITALS: BP 108/61
== END 2018-07-31 17:00 | DRG 871 ==
LOC: ER 09:24 → ED HOLD 12:02 → PCU 3S 14:58 → CICU 2S 07-21 03:51 → PCU 3S 07-25 15:26
PROVIDERS: ADMIT Family Medicine; ATTEND Internal Medicine Critical Care Medicine
PROC: B3251ZZ Computerized Tomography (CT Scan) of Bilateral Common Carotid Arteries using Low Osmolar Contrast (ICD-10-PCS; 2018-07-15)
PROC: B32G1ZZ Computerized Tomography (CT Scan) of Bilateral Vertebral Arteries using Low Osmolar Contrast (ICD-10-PCS; 2018-07-15)
PROC: B3201ZZ Computerized Tomography (CT Scan) of Thoracic Aorta using Low Osmolar Contrast (ICD-10-PCS; 2018-07-15)
PROC: B3281ZZ Computerized Tomography (CT Scan) of Bilateral Internal Carotid Arteries using Low Osmolar Contrast (ICD-10-PCS; 2018-07-15)
PROC: 009U3ZX Drainage of Spinal Canal, Percutaneous Approach, Diagnostic (ICD-10-PCS; 2018-07-17)
PROC: B01B1ZZ Fluoroscopy of Spinal Cord using Low Osmolar Contrast (ICD-10-PCS; 2018-07-17)
PROC: 5A1945Z Respiratory Ventilation, 24-96 Consecutive Hours (ICD-10-PCS; principal; 2018-07-21)
PROC: 0D9680Z Drainage of Stomach with Drainage Device, Via Natural or Artificial Opening Endoscopic (ICD-10-PCS; 2018-07-21)
PROC: 0BH17EZ Insertion of Endotracheal Airway into Trachea, Via Natural or Artificial Opening (ICD-10-PCS; 2018-07-21)
PROC: 02HV33Z Insertion of Infusion Device into Superior Vena Cava, Percutaneous Approach (ICD-10-PCS; 2018-07-21)
PROC: 30233M1 Transfusion of Nonautologous Plasma Cryoprecipitate into Peripheral Vein, Percutaneous Approach (ICD-10-PCS; 2018-07-21)
PROC: 0DJ08ZZ Inspection of Upper Intestinal Tract, Via Natural or Artificial Opening Endoscopic (ICD-10-PCS; 2018-07-21)
PROC: 30233N1 Transfusion of Nonautologous Red Blood Cells into Peripheral Vein, Percutaneous Approach (ICD-10-PCS; 2018-07-21)
DX: A41.9 Sepsis, unspecified organism (principal); J69.0 Pneumonitis due to inhalation of food and vomit; I63.9 Cerebral infarction, unspecified; J96.01 Acute respiratory failure with hypoxia; K26.4 Chronic or unspecified duodenal ulcer with hemorrhage; R57.1 Hypovolemic shock; E87.0 Hyperosmolality and hypernatremia; I48.92 Unspecified atrial flutter; N17.9 Acute kidney failure, unspecified; G81.91 Hemiplegia, unspecified affecting right dominant side; K22.10 Ulcer of esophagus without bleeding; G40.909 Epilepsy, unspecified, not intractable, without status epilepticus; G83.84 Todd's paralysis (postepileptic); K29.00 Acute gastritis without bleeding; E87.6 Hypokalemia; R14.0 Abdominal distension (gaseous); R74.0 Nonspecific elevation of levels of transaminase and lactic acid dehydrogenase [LDH]; E03.9 Hypothyroidism, unspecified; E11.65 Type 2 diabetes mellitus with hyperglycemia; I10 Essential (primary) hypertension; I48.2 Chronic atrial fibrillation; K21.0 Gastro-esophageal reflux disease with esophagitis; Z79.01 Long term (current) use of anticoagulants; Z79.84 Long term (current) use of oral hypoglycemic drugs; Z79.899 Other long term (current) drug therapy; Z79.82 Long term (current) use of aspirin; Z85.46 Personal history of malignant neoplasm of prostate; Z85.850 Personal history of malignant neoplasm of thyroid; Z92.3 Personal history of irradiation
CPT/HCPCS: 36415; 36600; 70450; 70496; 70498; 70551; 71045; 74018; 74176; 80048; 80053; 80061; 80162; 80305; 80320; 81001; 82330; 82570; 82803; 82810; 82945; 82948; 83605; 83735; 83880; 83930; 83935; 84100; 84132; 84133; 84134; 84145; 84146; 84157; 84300; 84443; 84478; 84484; 85018; 85025; 85610; 85730; 86677; 86885; 86900; 86901; 86920; 87015; 87040; 87070; 87207; 87210; 87529; 89051; 92616; 93005; 93308; 94002; 94003; 94640; 94760; 96365; 96375; 97110; 97112; 97116; 97163; 97530; 99285; 99291; 99292; C9113; G0378; J0133; J0282; J0360; J0696; J1160; J1250; J1650; J1815; J1940; J1953; J2020; J2060; J2250; J2270; J2543; J2704; J3010; J3370; J3480; J3490; J7030; J7070; J7120; P9016; P9045; P9059; Q9963; Q9967

== ENCOUNTER 2019-02-23 15:11 | Emergency (ER) | payer MEDICARE, OTHER ==
[~2019-02-23] VITALS: Ht 185.4 cm; Wt 104.7 kg
[~2019-02-23 15:11] MED LIST changes: -ASPI-41 PO; -ATE25T PO; -ATEN-169 PO; +CARV-50 PO; -DILT180C66 PO; -ESLI800T PO; +ISOS30TA6 PO; -KEP500T PO; -LAMO25TA94 PO; -LEVE10002 PO; +LEVE250T PO; -LEVO150T8 PO; -LOSA25TA96 PO; -METF500T PO; -OMEP20TA5 PO; -OMEP40CA37 PO; -OXYB15TA PO; +PANT-47 PO
--- NOTE | 2019-02-23 15:51 | NUR ---
PT'S BEST FRIEND GEETA LENNON PLEASE CALL WHEN PT IS READY TO GO HOME.
[2019-02-23 15:52] LABS: BASOPHILS % (AUTO) 0.5 % (0-1); EOSINOPHILS % (AUTO) 0.2 % (0-6); HEMATOCRIT 39.5 % (42.0-52.0); LYMPHOCYTES # (AUTO) 1.4 X10'3 (1.1-4.8); LYMPHOCYTES % (AUTO) 16.1 % (21-51); MEAN CORPUSCULAR HEMOGLOBIN 24.4 PG (27.0-31.0); MEAN CORPUSCULAR VOLUME 73.9 FL (78-98); MEAN PLATELET VOLUME 8.3 FL (7.4-10.4); MONOCYTES # (AUTO) 0.8 X10'3 (0-0.9); MONOCYTES % (AUTO) 9.1 % (2-12); NEUTROPHILS # (AUTO) 6.6 X10'3 (1.8-7.7); NEUTROPHILS % (AUTO) 74.1 % (42-75); PLATELET COUNT 395 X10'3 (140-440); RED BLOOD COUNT 5.35 X10'6 (4.70-6.10); RED CELL DISTRIBUTION WIDTH 19.6 % (11.5-14.5); WHITE BLOOD COUNT 8.9 X10'3 (4.5-11.0)
[2019-02-23 16:03] LABS: INR 1.1 INR
[2019-02-23 16:16] LABS: ALANINE AMINOTRANSFERASE 25 U/L (12-78); ALBUMIN 3.7 G/DL (3.4-5.0); ALBUMIN/GLOBULIN RATIO 0.9 (1.1-1.5); ALKALINE PHOSPHATASE 87 IU/L (46-116); AMYLASE 41 U/L (25-115); ANION GAP 7 (8-16); ASPARTATE AMINO TRANSFERASE 13 U/L (10-37); BILIRUBIN,TOTAL 0.4 MG/DL (0.1-1.0); BLOOD UREA NITROGEN 20 MG/DL (7-18); BUN/CREATININE RATIO 13.5 (5.4-32.0); CALCIUM 9.8 MG/DL (8.5-10.1); CHLORIDE 91 MMOL/L (99-107); CREATININE 1.48 MG/DL (0.60-1.10); GLUCOSE 184 MG/DL (70-104); LIPASE 126 U/L (73-393); POTASSIUM 3.8 MMOL/L (3.5-5.1); SODIUM 127 MMOL/L (135-145); TOTAL CARBON DIOXIDE 28.6 MMOL/L (24-32); TOTAL PROTEIN 7.8 G/DL (6.4-8.2); eGFR 47 ML/MIN
--- NOTE | 2019-02-23 16:19 | NUR ---
TO CT VIA WHEELCHAIR
[2019-02-23 17:01] LABS: PARTIAL THROMBOPLASTIN TIME 30 SECONDS (22-32)
[2019-02-23 17:05] VITALS: BP 137/97
[2019-02-23 17:33] LABS: CLARITY,URINE SLIGHTLY CLOUDY (Clear); COLOR,URINE YELLOW (Yellow); GLUCOSE, URINE >=1000 mg/dl (Neg); KETONES,URINE TRACE mg/dl (Neg); LEUKOCYTE ESTERASE ,URINE NEGATIVE (Neg); NITRITES, URINE NEGATIVE (Neg); OCCULT BLOOD,URINE NEGATIVE (Neg); PROTEIN,URINE TRACE mg/dl (Neg); UROBILINOGEN,URINE 0.2 E.U/dL (0.2-1.0)
[2019-02-23 17:34] LABS: UA COLLECTION TYPE CLN CATCH MIDSTREAM
[2019-02-23 17:44] LABS: HYALINE CASTS >30 /LPF (NEGATIVE); MUCUS STRANDS MANY /LPF (Neg)
[2019-02-23 17:46] LABS: SQUAMOUS EPITHELIAL CELL,UR FEW /LPF (FEW)
[2019-02-23 17:47] LABS: TRANSITIONAL EPI CELLS,URINE MODERATE /HPF
[2019-02-23 17:48] LABS: BACTERIA,URINE NONE SEEN /HPF (Neg); RBC,URINE 0-2 /HPF (0-2); RENAL CELLS, URINE MODERATE /HPF; WBC,URINE 0-4 /HPF (0-4)
[2019-02-23 18:03] LABS: OCCULT BLOOD STOOL NEGATIVE (Neg)
== END 2019-02-23 17:35 | disposition home or self-care (01) ==
LOC: ER 15:12
DX: K92.0 Hematemesis (principal); K57.90 Diverticulosis of intestine, part unspecified, without perforation or abscess without bleeding; K86.1 Other chronic pancreatitis; K59.00 Constipation, unspecified; I10 Essential (primary) hypertension; Z86.69 Personal history of other diseases of the nervous system and sense organs; Z86.73 Personal history of transient ischemic attack (TIA), and cerebral infarction without residual deficits; Z79.82 Long term (current) use of aspirin; Z79.899 Other long term (current) drug therapy
CPT/HCPCS: 36415; 74176; 80053; 81001; 82150; 82272; 83690; 85025; 85610; 85730; 86885; 86900; 86901; 93005; 99284

== ENCOUNTER 2020-11-18 02:45 | Emergency (ER) | payer OTHER, MEDICARE ==
[~2020-11-18] VITALS: Ht 182.9 cm; Wt 95.5 kg
[~2020-11-18 02:45] MED LIST changes: +ASCO500C17 PO; -ASPI-1265 PO; +ATEN50TA PO; +ATOR-2 PO; -ATOR20TA66 PO; -CARV-50 PO; +DILT120C51 PO; +FERR-39 PO; -ISOS30TA6 PO; -LEVE250T PO; +LEVE500T PO; +LEVO150T8 PO; -LEVO175T2 PO; +OXYB15TA19 PO
[2020-11-18 03:19] LABS: CLARITY,URINE TURBID (Clear); COLOR,URINE RED (Yellow); UA COLLECTION TYPE VOIDED
[2020-11-18 03:26] LABS: BACTERIA,URINE FEW /HPF (Neg); RBC,URINE TNTC /HPF (0-2); SQUAMOUS EPITHELIAL CELL,UR NONE SEEN /LPF (FEW); WBC,URINE 0-4 /HPF (0-4)
--- NOTE | 2020-11-18 04:08 | NUR ---
PATIENT TO RESTROOM WANTED TO STAND AND VOID C/O CONSTANT PRESSURE. PASSED SEVERAL LARGE CLOTS WITH PAIN AND HEMATURINA NOTED. PRESSURE FROM PASSING CLOTS THROUGH URETHRA PATIENT REPORTS SPARYING BLOOD ALL OVER WALL OF BATHROOM. VERIFIED SPRAY VERIFIED PATIENT FELT RELIEF AFTER URINATING AND PASSING CLOTS
[2020-11-18] MEDS ORDERED: normal saline 1000ML IV soln IVB ONE (04:20)
[2020-11-18 04:56] LABS: BASOPHILS # (AUTO) 0.1 X10'3 (0-0.2); BASOPHILS % (AUTO) 0.8 % (0-1); EOSINOPHILS # (AUTO) 0.1 X10'3 (0-0.9); EOSINOPHILS % (AUTO) 1.3 % (0-6); HEMOGLOBIN 13.7 g/dl (14.0-17.9); LYMPHOCYTES # (AUTO) 2.1 X10'3 (1.1-4.8); LYMPHOCYTES % (AUTO) 21.6 % (21-51); MEAN CORPUSCULAR HEMOGLOBIN 31.5 PG (27.0-31.0); MEAN CORPUSCULAR HGB CONC 34.2 g/dL (33.0-36.5); MEAN PLATELET VOLUME 8.5 FL (7.4-10.4); MONOCYTES # (AUTO) 0.6 X10'3 (0-0.9); MONOCYTES % (AUTO) 6.7 % (2-12); NEUTROPHILS # (AUTO) 6.7 X10'3 (1.8-7.7); NEUTROPHILS % (AUTO) 69.6 % (42-75); PLATELET COUNT 354 X10'3 (140-440); RED BLOOD COUNT 4.35 X10'6 (4.70-6.10); RED CELL DISTRIBUTION WIDTH 13.7 % (11.5-14.5); WHITE BLOOD COUNT 9.6 X10'3 (4.5-11.0)
[2020-11-18 05:03] LABS: ALANINE AMINOTRANSFERASE 17 U/L (12-78); ALBUMIN 3.5 G/DL (3.4-5.0); ALBUMIN/GLOBULIN RATIO 0.9 (1.1-1.5); ALKALINE PHOSPHATASE 88 IU/L (46-116); ANION GAP 8 (8-16); ASPARTATE AMINO TRANSFERASE 7 U/L (10-37); BILIRUBIN,TOTAL 0.5 MG/DL (0.1-1.0); BLOOD UREA NITROGEN 16 MG/DL (7-18); BUN/CREATININE RATIO 15.8 (5.4-32.0); CALCIUM 9.3 MG/DL (8.5-10.1); CHLORIDE 103 MMOL/L (99-107); CREATININE 1.01 MG/DL (0.60-1.10); GLUCOSE 117 MG/DL (70-104); POTASSIUM 4.2 MMOL/L (3.5-5.1); SODIUM 141 MMOL/L (135-145); TOTAL CARBON DIOXIDE 30.3 MMOL/L (24-32); TOTAL PROTEIN 7.2 G/DL (6.4-8.2); eGFR 73 ML/MIN
[2020-11-18] MEDS ORDERED: iohexol 300mg/ml 100ml inj. ONE (05:05)
[2020-11-18] MEDS ORDERED: CefTRIAXone 2gm/D5W 50ml BAG 50 ML IV ONE (05:10)
[2020-11-18] MEDS ORDERED: [UNRECOGNIZED DRUG - REMARK] PO SCH (05:25)
[2020-11-18] MEDS ORDERED: LIDOcaine 2% 10ml TOPICAL JELLY (Urojet) TP ONE (05:40)
--- NOTE | 2020-11-18 05:52 | NUR ---
LAST VOID IN URINAL WAS SMALL AMT OF DARK RED WITH CLOTS. PT TO HAVE GOMEZ PLACED.
--- NOTE | 2020-11-18 06:46 | NUR ---
Instilled 150mL NS into pt's bladder via cohen, removed cohen and had pt use urinal. He voided 175mL into urinal. Dr Ramirez aware of results.
[2020-11-18] MEDS ORDERED: CEFD300C3 PO (06:49)
[2020-11-18 07:24] VITALS: BP 146/90
== END 2020-11-18 07:26 | disposition home or self-care (01) ==
LOC: ER 02:46
DX: N39.0 Urinary tract infection, site not specified (principal); R31.9 Hematuria, unspecified; R30.0 Dysuria; R31.0 Gross hematuria; I10 Essential (primary) hypertension; E03.9 Hypothyroidism, unspecified; Z86.69 Personal history of other diseases of the nervous system and sense organs; Z85.9 Personal history of malignant neoplasm, unspecified; Z72.89 Other problems related to lifestyle; Z79.2 Long term (current) use of antibiotics; Z79.899 Other long term (current) drug therapy
CPT/HCPCS: 36415; 51702; 74178; 80053; 81001; 85025; 96361; 96374; 99285; J0696; J7030; Q9967; 96365

== ENCOUNTER 2021-08-14 09:11 | Emergency (ER) | payer OTHER, MEDICARE ==
[~2021-08-14] VITALS: Ht 185.4 cm; Wt 109.0 kg
[~2021-08-14 09:11] MED LIST changes: -ASCO500C17 PO; +ASPI81TA52 PO; -ATEN50TA PO; +CEFD300C3 PO; +CHOL100025 PO; +CYAN10006 IM; -DILT120C51 PO; -FERR-39 PO; +FERR325T32 PO; +LACO50TA2 PO; +LEVE10006 PO; -LEVE500T PO; +METF-1203 PO; -METF-436 PO; +POLY17PO10 PO
[2021-08-14] MEDS ORDERED: iohexol 300mg/ml 100ml inj. ONE (09:49)
[2021-08-14 09:51] LABS: BASOPHILS # (AUTO) 0.1 X10'3 (0-0.2); BASOPHILS % (AUTO) 0.8 % (0-1); EOSINOPHILS # (AUTO) 0.1 X10'3 (0-0.9); EOSINOPHILS % (AUTO) 0.8 % (0-6); HEMATOCRIT 35.6 % (42.0-52.0); HEMOGLOBIN 12.3 g/dl (14.0-17.9); LYMPHOCYTES # (AUTO) 1.7 X10'3 (1.1-4.8); LYMPHOCYTES % (AUTO) 17.7 % (21-51); MEAN CORPUSCULAR HGB CONC 34.6 g/dL (33.0-36.5); MEAN CORPUSCULAR VOLUME 92.7 FL (78-98); MEAN PLATELET VOLUME 8.9 FL (7.4-10.4); MONOCYTES # (AUTO) 0.8 X10'3 (0-0.9); NEUTROPHILS # (AUTO) 6.8 X10'3 (1.8-7.7); NEUTROPHILS % (AUTO) 72.7 % (42-75); PLATELET COUNT 258 X10'3 (140-440); RED BLOOD COUNT 3.84 X10'6 (4.70-6.10); RED CELL DISTRIBUTION WIDTH 13.3 % (11.5-14.5); WHITE BLOOD COUNT 9.4 X10'3 (4.5-11.0)
[2021-08-14 10:07] LABS: ALANINE AMINOTRANSFERASE 18 U/L (12-78); ALBUMIN 3.2 G/DL (3.4-5.0); ALBUMIN/GLOBULIN RATIO 0.9 (1.1-1.5); ALKALINE PHOSPHATASE 62 IU/L (46-116); ANION GAP 11 (8-16); ASPARTATE AMINO TRANSFERASE 18 U/L (10-37); BILIRUBIN,TOTAL 1.2 MG/DL (0.1-1.0); BLOOD UREA NITROGEN 20 MG/DL (7-18); BUN/CREATININE RATIO 17.2 (5.4-32.0); CALCIUM 8.9 MG/DL (8.5-10.1); CHLORIDE 103 MMOL/L (99-107); CREATININE 1.16 MG/DL (0.60-1.10); GLUCOSE 152 MG/DL (70-104); POTASSIUM 3.9 MMOL/L (3.5-5.1); SODIUM 137 MMOL/L (135-145); TOTAL CARBON DIOXIDE 23.3 MMOL/L (24-32); TOTAL PROTEIN 6.9 G/DL (6.4-8.2); eGFR 62 ML/MIN
[2021-08-14] MEDS ORDERED: MESSAGE TO NURSING PO NR (10:43)
[2021-08-14 14:31] VITALS: BP 139/86
== END 2021-08-14 14:35 | disposition home or self-care (01) ==
LOC: ER 09:11
DX: S40.021A Contusion of right upper arm, initial encounter (principal); F03.91 Unspecified dementia, unspecified severity, with behavioral disturbance; I48.91 Unspecified atrial fibrillation; I10 Essential (primary) hypertension; E11.9 Type 2 diabetes mellitus without complications; E03.9 Hypothyroidism, unspecified; Z79.01 Long term (current) use of anticoagulants; Z85.9 Personal history of malignant neoplasm, unspecified; Z72.89 Other problems related to lifestyle; Z79.82 Long term (current) use of aspirin; Z79.899 Other long term (current) drug therapy; X58.XXXA Exposure to other specified factors, initial encounter; Y93.89 Activity, other specified; Y92.89 Other specified places as the place of occurrence of the external cause; Y99.8 Other external cause status
CPT/HCPCS: 36415; 71260; 80053; 84484; 85025; 99285; Q9967; 93005

== ENCOUNTER 2021-12-19 10:51 | Emergency (ER) | payer OTHER, MEDICARE ==
[~2021-12-19] VITALS: Ht 188 cm; Wt 100.0 kg
--- NOTE | 2021-12-19 11:07 | NUR ---
Pt O2 sats 87% RA, placed on 4L via NC
[2021-12-19] MEDS ORDERED: LORazepam 2 mg/ml vial IV ONE (12:00)
--- NOTE | 2021-12-19 12:00 | NUR ---
Pt waking up, getting agitated. Trying to speak, but speech is slurred and not able to communicate clearly verbally. MD notified.
[2021-12-19 12:03] LABS: BASOPHILS % (AUTO) 0.3 % (0-1); EOSINOPHILS % (AUTO) 0 % (0-6); HEMOGLOBIN 15.1 g/dl (14.0-17.9); LYMPHOCYTES # (AUTO) 0.7 X10'3 (1.1-4.8); LYMPHOCYTES % (AUTO) 6.1 % (21-51); MEAN CORPUSCULAR HEMOGLOBIN 30.1 PG (27.0-31.0); MEAN CORPUSCULAR HGB CONC 32.8 g/dL (33.0-36.5); MEAN CORPUSCULAR VOLUME 91.8 FL (78-98); MEAN PLATELET VOLUME 8.2 FL (7.4-10.4); MONOCYTES # (AUTO) 0.5 X10'3 (0-0.9); MONOCYTES % (AUTO) 4.1 % (2-12); NEUTROPHILS # (AUTO) 10.2 X10'3 (1.8-7.7); NEUTROPHILS % (AUTO) 89.5 % (42-75); PLATELET COUNT 254 X10'3 (140-440); RED BLOOD COUNT 5.01 X10'6 (4.70-6.10); RED CELL DISTRIBUTION WIDTH 13.4 % (11.5-14.5); WHITE BLOOD COUNT 11.4 X10'3 (4.5-11.0)
[2021-12-19 12:24] LABS: ALANINE AMINOTRANSFERASE 23 U/L (12-78); ALBUMIN 3.5 G/DL (3.4-5.0); ALBUMIN/GLOBULIN RATIO 1.1 (1.1-1.5); ALKALINE PHOSPHATASE 76 IU/L (46-116); ANION GAP 13 (8-16); ASPARTATE AMINO TRANSFERASE 15 U/L (10-37); BILIRUBIN,TOTAL 0.5 MG/DL (0.1-1.0); BLOOD UREA NITROGEN 11 MG/DL (7-18); BUN/CREATININE RATIO 11.7 (5.4-32.0); CHLORIDE 105 MMOL/L (99-107); CREATININE 0.94 MG/DL (0.60-1.10); GLUCOSE 186 MG/DL (70-104); POTASSIUM 3.9 MMOL/L (3.5-5.1); SODIUM 138 MMOL/L (135-145); TOTAL CARBON DIOXIDE 20.5 MMOL/L (24-32); TOTAL PROTEIN 6.8 G/DL (6.4-8.2); eGFR 78 ML/MIN
[2021-12-19 12:28] LABS: ETHANOL < 0.010 GM/DL (0.0-0.010)
--- NOTE | 2021-12-19 12:46 | NUR ---
CT called and stated that pt was very agitated in CT. Tried pulling things out and getting up. Couldn't express himself verbally, and wanted to warn us that he may try to get out of the gurney. notified.
--- NOTE | 2021-12-19 13:30 | NUR ---
Pt has returned to baseline. cleared pt for d/c
[2021-12-19 13:31] VITALS: BP 173/119
--- NOTE | 2021-12-19 13:33 | NUR ---
Pt lives at [facility], arrived via EMS. Tech working on transport
[2021-12-19] MEDS ORDERED: LOP12.5T PO (17:44)
[2021-12-19] MEDS ORDERED: LISI5TAB22 PO (17:44)
[2021-12-19] MEDS ORDERED: LACO100T2 PO (17:45)
[2021-12-19] MEDS ORDERED: [UNRECOGNIZED DRUG - CODE] PO (17:57)
== END 2021-12-19 14:33 | disposition home or self-care (01) ==
LOC: ER 10:51
DX: G40.909 Epilepsy, unspecified, not intractable, without status epilepticus (principal); I48.91 Unspecified atrial fibrillation; I10 Essential (primary) hypertension; E11.9 Type 2 diabetes mellitus without complications; E03.9 Hypothyroidism, unspecified; Z86.19 Personal history of other infectious and parasitic diseases; Z86.69 Personal history of other diseases of the nervous system and sense organs; Z85.9 Personal history of malignant neoplasm, unspecified; Z72.89 Other problems related to lifestyle; Z79.82 Long term (current) use of aspirin; Z79.2 Long term (current) use of antibiotics; Z79.899 Other long term (current) drug therapy
CPT/HCPCS: 36415; 70450; 71045; 80053; 80320; 85025; 93005; 96374; 99285; J2060

== ENCOUNTER 2021-12-19 16:44 | Inpatient (IN) | payer OTHER, MEDICARE ==
[~2021-12-19] VITALS: Ht 190.5 cm; Wt 110.0 kg
--- NOTE | 2021-12-19 16:53 | NUR ---
Pt has high BP 158/114.
[2021-12-19] MEDS ORDERED: normal saline 1000ML IV soln IVB ONE (17:25)
[2021-12-19] MEDS ORDERED: LOP12.5T PO (17:44)
[2021-12-19] MEDS ORDERED: LISI5TAB22 PO (17:44)
[2021-12-19] MEDS ORDERED: LACO100T2 PO (17:45)
[2021-12-19] MEDS: Levetiracetam-NS 500mg/100ml 100 ML IV SCH ×2 (17:45→17:52)
--- NOTE | 2021-12-19 17:52 | NUR ---
Received Keppra from pharmacy. Checked with . Administration time states 1999. ordered it to be changed to be given now. Keppra infusing.
[2021-12-19] MEDS ORDERED: [UNRECOGNIZED DRUG - CODE] PO (17:57)
[2021-12-19] MEDS ORDERED: LORazepam 2 mg/ml vial IV ONE (19:05)
--- NOTE | 2021-12-19 19:33 | NUR ---
pt changed, cleaned and repositioned in bed. pt had bowel movement
[2021-12-19] MEDS ORDERED: Levetiracetam-NS 500mg/100ml 100 ML IV SCH (20:00)
[2021-12-19] MEDS ORDERED: temazepam 15mg capsule PO PRN (21:00)
[2021-12-19] MEDS ORDERED: HYDROcodone/acetaminophen 10/325mg tab PO PRN (22:55)
[2021-12-19] MEDS ORDERED: bisacodyl 10mg suppository rectal RC PRN (22:55)
[2021-12-19] MEDS ORDERED: diphenhydrAMINE 50 mg/ml inj IV PRN (22:55)
[2021-12-19] MEDS ORDERED: diphenhydrAMINE 25mg capsule PO PRN (22:55)
[2021-12-19] MEDS ORDERED: mag hydrox/Alum hydrox/simeth 30ml oral suspension PO PRN (22:55)
[2021-12-19] MEDS ORDERED: morphine 2 MG/ML inj. syringe IV PRN ×2 (22:55)
[2021-12-19] MEDS ORDERED: acetaminophen 325mg tablet PO PRN ×2 (22:55)
[2021-12-19] MEDS ORDERED: ondansetron/PF 4mg/2ml inj IV PRN (22:55)
[2021-12-19] MEDS ORDERED: magnesium hydroxide 30ml (MOM) UD suspension PO PRN (22:55)
[2021-12-19] MEDS ORDERED: ondansetron 4mg rapidly disintigrating tab PO PRN (22:55)
[2021-12-19] MEDS ORDERED: HYDROcodone/acetaminophen 5mg/325mg tablet PO PRN (22:55)
[2021-12-19] MEDS ORDERED: acetaminophen 650mg rectal suppository RC PRN (22:55)
[2021-12-19] MEDS ORDERED: MESSAGE TO PHARMACY PO ONE (23:10)
[2021-12-19] MEDS ORDERED: glucagon, human recombinant 1mg kit SUBCUT PRN (23:10)
[2021-12-19] MEDS ORDERED: DEXTROSE 15 GM of carb/4 tabs (each vial/BOTTLE has 4 tablets) PO PRN ×2 (23:10)
[2021-12-19] MEDS ORDERED: insulin Lispro (HumaLOG) vial - multi-dose SQ SCH (23:10)
[2021-12-19] MEDS ORDERED: dextrose 50%-water 50ml dispensing syringe IV PRN ×2 (23:10)
[2021-12-19 23:51] LABS: HEMOGLOBIN A1C 6.9 % (4.5-6.2)
[2021-12-19 23:54] LABS: APTT 28 SECONDS (22-32); D-DIMER 0.21 MG/L FEU (0-0.50)
[2021-12-20 00:02] LABS: CREATINE KINASE 104 U/L (39-308); LIPASE < 50 U/L (73-393); PHOSPHORUS 2.5 MG/DL (2.3-4.5)
[2021-12-20] MEDS: normal saline 1000ml 1,000 ML IV SCH ×3 (00:09→19:02)
[2021-12-20] MEDS: LORazepam 1 MG tablet PO SCH ×4 (00:09→23:31)
[2021-12-20 00:12] LABS: MAGNESIUM 1.9 MG/DL (1.5-2.4)
[2021-12-20 01:17] LABS: CLARITY,URINE CLEAR (Clear); COLOR,URINE YELLOW (Yellow); GLUCOSE, URINE 500 mg/dl (Neg); KETONES,URINE 40 mg/dl (Neg); LEUKOCYTE ESTERASE ,URINE NEGATIVE (Neg); NITRITES, URINE NEGATIVE (Neg); OCCULT BLOOD,URINE SMALL (Neg); PROTEIN,URINE 100 mg/dl (Neg); UROBILINOGEN,URINE 0.2 E.U/dL (0.2-1.0)
[2021-12-20 01:49] LABS: BASOPHILS % (AUTO) 0.4 % (0-1); EOSINOPHILS % (AUTO) 0 % (0-6); HEMATOCRIT 45.3 % (42.0-52.0); LYMPHOCYTES # (AUTO) 1.2 X10'3 (1.1-4.8); LYMPHOCYTES % (AUTO) 9.5 % (21-51); MEAN CORPUSCULAR HEMOGLOBIN 30.3 PG (27.0-31.0); MEAN CORPUSCULAR HGB CONC 33.2 g/dL (33.0-36.5); MEAN CORPUSCULAR VOLUME 91.5 FL (78-98); MEAN PLATELET VOLUME 8.8 FL (7.4-10.4); MONOCYTES # (AUTO) 1.1 X10'3 (0-0.9); NEUTROPHILS % (AUTO) 81.1 % (42-75); PLATELET COUNT 278 X10'3 (140-440); RED BLOOD COUNT 4.95 X10'6 (4.70-6.10); RED CELL DISTRIBUTION WIDTH 13.6 % (11.5-14.5); WHITE BLOOD COUNT 12.3 X10'3 (4.5-11.0)
[2021-12-20 02:09] LABS: ALANINE AMINOTRANSFERASE 20 U/L (12-78); ALBUMIN 3.4 G/DL (3.4-5.0); ALKALINE PHOSPHATASE 65 IU/L (46-116); ANION GAP 12 (8-16); ASPARTATE AMINO TRANSFERASE 13 U/L (10-37); BILIRUBIN,TOTAL 0.9 MG/DL (0.1-1.0); BLOOD UREA NITROGEN 10 MG/DL (7-18); BUN/CREATININE RATIO 11.8 (5.4-32.0); CALCIUM 8.8 MG/DL (8.5-10.1); CHLORIDE 102 MMOL/L (99-107); CHOL/HDL RATIO 2.1 (0.00-4.99); CHOLESTEROL 106 MG/DL (0-200); CREATININE 0.85 MG/DL (0.60-1.10); GLUCOSE 148 MG/DL (70-104); HDL CHOLESTEROL 50 MG/DL (35-60); LDL CHOLESTEROL 50 MG/DL (50-100); POTASSIUM 3.4 MMOL/L (3.5-5.1); SODIUM 137 MMOL/L (135-145); TOTAL CARBON DIOXIDE 22.7 MMOL/L (24-32); TOTAL PROTEIN 6.7 G/DL (6.4-8.2); TRIGLYCERIDES 41 MG/DL (20-135); eGFR 88 ML/MIN
[2021-12-20 02:12] LABS: UA COLLECTION TYPE CLN CATCH MIDSTREAM
[2021-12-20 02:19] LABS: BACTERIA,URINE FEW /HPF (Neg); MUCUS STRANDS FEW /LPF (Neg); RBC,URINE 0-2 /HPF (0-2); SQUAMOUS EPITHELIAL CELL,UR NONE SEEN /LPF (FEW); WBC,URINE 0-4 /HPF (0-4)
[2021-12-20 02:20] LABS: CAL OXALATE CRYSTALS FEW /HPF (NEGATIVE)
[2021-12-20] MEDS ORDERED: potassium CL 10mEq/100ml bag 100 ML IV PRN (04:55)
[2021-12-20] MEDS ORDERED: magnesium 4gm in 100ml NS 100 ML IV PRN (04:55)
[2021-12-20] MEDS ORDERED: potassium Cl 20 mEq SR tablet PO PRN (04:55)
[2021-12-20] MEDS ORDERED: magnesium Cl slow-release 64mg tablet PO PRN (04:55)
[2021-12-20 06:00] VITALS: BP 168/124
[2021-12-20 06:17] VITALS: BP 146/103
[2021-12-20 06:33] LABS: POTASSIUM 3.6 MMOL/L (3.5-5.1)
[2021-12-20] MEDS: metoprolol tartrate 50mg tablet PO SCH ×2 (08:00→20:41)
[2021-12-20] MEDS: oxybutynin 5mg tablet PO SCH ×3 (08:37→20:37)
[2021-12-20] MEDS: LACOSAMIDE 50 MG TABLET PO SCH ×2 (08:38→20:35)
[2021-12-20] MEDS: pantoprazole 40mg Tablet.DR PO SCH (08:39)
[2021-12-20] MEDS: levetiracetam 250mg tablet PO SCH ×2 (08:39→20:36)
[2021-12-20] MEDS: ferrous sulfate 325mg tablet PO SCH (08:39)
[2021-12-20] MEDS: potassium Cl 20 mEq SR tablet PO PRN ×2 (08:40→19:02)
[2021-12-20] MEDS: levoTHYROXINE 75mcg tablet PO SCH (08:40)
[2021-12-20] MEDS: docusate sod 100mg capsule PO SCH ×2 (08:41→20:42)
[2021-12-20] MEDS: lisinopril 5mg tablet PO SCH (08:45)
[2021-12-20] MEDS: aspirin 81mg, enteric-coated 1 TAB TABLET.DR PO SCH (08:46)
[2021-12-20] MEDS: polyethylene glycol 3350 17gm powd pack PO SCH (08:46)
[2021-12-20] MEDS: K and/or MAG REPLACEMENT MC SCH ×2 (08:47→19:03)
[2021-12-20 10:00] VITALS: BP 156/125
--- NOTE | 2021-12-20 12:08 | NUR ---
I called Dr. York to get order for MRA part of brain, she said yes, but unable to put order in under her name she was not found, reported the issue to help desk they will be in contact with me. Put mra under admitting provider Dr. Garzon for now.
[2021-12-20 14:00] VITALS: BP 125/89
--- NOTE | 2021-12-20 16:00 | NUR ---
Paged Dr. York about still needing eeg or not because tele/neuro note said to do at outpatient, also roving technician said patient had multiple eeg's in past. Waiting to see on whether to cancel order.
[2021-12-20 18:00] VITALS: BP 151/110
--- NOTE | 2021-12-20 18:41 | NUR ---
Patient remained stable as no episodes of seizure was noted through out the day, patient tolerated MRI scan and no issues was reported.All prescribed medication administered, patient was handed over no night staff in a hemodynamically stable condition.
[2021-12-20] MEDS: rivaroxaban 20mg tablet PO SCH (19:02)
[2021-12-20] MEDS: atorvastatin 20mg tablet PO SCH (20:37)
[2021-12-20] MEDS: insulin glargine (Lantus) pen - multi-dose SQ SCH (20:58)
[2021-12-20 22:00] VITALS: BP 139/94
[2021-12-21 06:06] LABS: BASOPHILS # (AUTO) 0.1 X10'3 (0-0.2); BASOPHILS % (AUTO) 0.6 % (0-1); EOSINOPHILS # (AUTO) 0.1 X10'3 (0-0.9); EOSINOPHILS % (AUTO) 0.7 % (0-6); HEMATOCRIT 43.1 % (42.0-52.0); HEMOGLOBIN 14.6 g/dl (14.0-17.9); LYMPHOCYTES # (AUTO) 1.6 X10'3 (1.1-4.8); MEAN CORPUSCULAR VOLUME 91.2 FL (78-98); MONOCYTES # (AUTO) 1.2 X10'3 (0-0.9); MONOCYTES % (AUTO) 10.7 % (2-12); NEUTROPHILS # (AUTO) 7.9 X10'3 (1.8-7.7); PLATELET COUNT 258 X10'3 (140-440); RED BLOOD COUNT 4.72 X10'6 (4.70-6.10); RED CELL DISTRIBUTION WIDTH 13.5 % (11.5-14.5); WHITE BLOOD COUNT 10.8 X10'3 (4.5-11.0)
[2021-12-21 06:32] LABS: ALANINE AMINOTRANSFERASE 20 U/L (12-78); ALBUMIN 3.2 G/DL (3.4-5.0); ALKALINE PHOSPHATASE 59 IU/L (46-116); ANION GAP 12 (8-16); ASPARTATE AMINO TRANSFERASE 11 U/L (10-37); BILIRUBIN,TOTAL 1.2 MG/DL (0.1-1.0); BLOOD UREA NITROGEN 15 MG/DL (7-18); BUN/CREATININE RATIO 15.6 (5.4-32.0); CHLORIDE 103 MMOL/L (99-107); CREATININE 0.96 MG/DL (0.60-1.10); GLUCOSE 135 MG/DL (70-104); POTASSIUM 4.1 MMOL/L (3.5-5.1); SODIUM 139 MMOL/L (135-145); TOTAL CARBON DIOXIDE 24.5 MMOL/L (24-32); TOTAL PROTEIN 6.4 G/DL (6.4-8.2); eGFR 77 ML/MIN
--- NOTE | 2021-12-21 06:59 | NUR ---
Diabetes consult: Noted pt w/ hx of DM A1c 6.9, fair control and appropriate for age per ADA guidelines. DM ed not indicated at this time. Addendum: 12/21/21 at [address] Amended: Links added.
[2021-12-21 07:32] VITALS: BP 149/110
[2021-12-21] MEDS: aspirin 81mg, enteric-coated 1 TAB TABLET.DR PO SCH (08:00)
[2021-12-21] MEDS: pantoprazole 40mg Tablet.DR PO SCH (08:00)
[2021-12-21] MEDS: LORazepam 1 MG tablet PO SCH ×3 (08:00→23:00)
[2021-12-21] MEDS: oxybutynin 5mg tablet PO SCH ×3 (08:00→19:41)
[2021-12-21] MEDS: levetiracetam 250mg tablet PO SCH ×2 (08:00→19:38)
[2021-12-21] MEDS: metoprolol tartrate 50mg tablet PO SCH ×2 (08:00→19:43)
[2021-12-21] MEDS: docusate sod 100mg capsule PO SCH ×2 (08:00→19:39)
[2021-12-21] MEDS: K and/or MAG REPLACEMENT MC SCH ×2 (08:00→19:44)
[2021-12-21] MEDS: lisinopril 5mg tablet PO SCH (08:00)
[2021-12-21] MEDS: levoTHYROXINE 75mcg tablet PO SCH (08:00)
[2021-12-21] MEDS: LACOSAMIDE 50 MG TABLET PO SCH ×2 (08:00→19:43)
[2021-12-21] MEDS: polyethylene glycol 3350 17gm powd pack PO SCH (08:00)
[2021-12-21] MEDS: ferrous sulfate 325mg tablet PO SCH (08:00)
[2021-12-21 10:10] VITALS: BP 99/54
--- NOTE | 2021-12-21 11:53 | NUR ---
PAGER ID: [phone] MESSAGE: [phone]. Facundo Dobbs. Can we get a sitter for pt? impulsive!. Thanks, [phone]
[2021-12-21] MEDS: normal saline 1000ml 1,000 ML IV SCH ×2 (14:55→17:06)
[2021-12-21 18:00] VITALS: BP 103/76
--- NOTE | 2021-12-21 18:30 | NUR ---
Pt is impulsive, pulled out iv, unable to get a new one in
[2021-12-21] MEDS: rivaroxaban 20mg tablet PO SCH (19:38)
[2021-12-21] MEDS: atorvastatin 20mg tablet PO SCH (19:40)
[2021-12-21] MEDS: insulin glargine (Lantus) pen - multi-dose SQ SCH (21:22)
[2021-12-21 22:00] VITALS: BP 156/108
[2021-12-22] MEDS: normal saline 1000ml 1,000 ML IV SCH ×2 (00:55→09:03)
[2021-12-22 02:00] VITALS: BP 148/92
[2021-12-22 04:57] VITALS: BP 156/108
[2021-12-22 05:35] LABS: BASOPHILS # (AUTO) 0.1 X10'3 (0-0.2); BASOPHILS % (AUTO) 0.6 % (0-1); EOSINOPHILS # (AUTO) 0.1 X10'3 (0-0.9); EOSINOPHILS % (AUTO) 1.5 % (0-6); HEMATOCRIT 42.5 % (42.0-52.0); HEMOGLOBIN 14.7 g/dl (14.0-17.9); LYMPHOCYTES # (AUTO) 1.7 X10'3 (1.1-4.8); LYMPHOCYTES % (AUTO) 17.7 % (21-51); MEAN CORPUSCULAR HGB CONC 34.5 g/dL (33.0-36.5); MEAN PLATELET VOLUME 8.8 FL (7.4-10.4); NEUTROPHILS # (AUTO) 6.5 X10'3 (1.8-7.7); NEUTROPHILS % (AUTO) 69.2 % (42-75); PLATELET COUNT 252 X10'3 (140-440); RED BLOOD COUNT 4.73 X10'6 (4.70-6.10); RED CELL DISTRIBUTION WIDTH 13.3 % (11.5-14.5); WHITE BLOOD COUNT 9.4 X10'3 (4.5-11.0)
[2021-12-22 05:57] LABS: ALANINE AMINOTRANSFERASE 18 U/L (12-78); ALBUMIN/GLOBULIN RATIO 0.9 (1.1-1.5); ALKALINE PHOSPHATASE 59 IU/L (46-116); ANION GAP 12 (8-16); ASPARTATE AMINO TRANSFERASE 13 U/L (10-37); BLOOD UREA NITROGEN 17 MG/DL (7-18); BUN/CREATININE RATIO 15.6 (5.4-32.0); CHLORIDE 102 MMOL/L (99-107); CREATININE 1.09 MG/DL (0.60-1.10); GLUCOSE 154 MG/DL (70-104); MAGNESIUM 1.8 MG/DL (1.5-2.4); POTASSIUM 3.9 MMOL/L (3.5-5.1); SODIUM 138 MMOL/L (135-145); TOTAL CARBON DIOXIDE 24.2 MMOL/L (24-32); TOTAL PROTEIN 6.3 G/DL (6.4-8.2); eGFR 66 ML/MIN
[2021-12-22 06:00] VITALS: BP 158/102
[2021-12-22] MEDS: aspirin 81mg, enteric-coated 1 TAB TABLET.DR PO SCH (08:00)
[2021-12-22] MEDS: K and/or MAG REPLACEMENT MC SCH (08:00)
[2021-12-22] MEDS: polyethylene glycol 3350 17gm powd pack PO SCH (08:00)
[2021-12-22] MEDS: docusate sod 100mg capsule PO SCH (08:00)
[2021-12-22] MEDS: levetiracetam 250mg tablet PO SCH (08:59)
[2021-12-22] MEDS: LACOSAMIDE 50 MG TABLET PO SCH (08:59)
[2021-12-22] MEDS: pantoprazole 40mg Tablet.DR PO SCH (09:02)
[2021-12-22] MEDS: lisinopril 5mg tablet PO SCH (09:02)
[2021-12-22] MEDS: metoprolol tartrate 50mg tablet PO SCH (09:02)
[2021-12-22] MEDS: oxybutynin 5mg tablet PO SCH ×2 (09:02→13:00)
[2021-12-22] MEDS: levoTHYROXINE 75mcg tablet PO SCH (09:02)
[2021-12-22] MEDS: ferrous sulfate 325mg tablet PO SCH (09:03)
[2021-12-22] MEDS: LORazepam 1 MG tablet PO SCH (09:03)
[2021-12-22 10:10] VITALS: BP 128/80
== END 2021-12-22 15:00 | disposition home or self-care (01) | DRG 100 ==
LOC: ER 16:44 → ED HOLD 23:08 → MED 3N 12-20 05:25
PROVIDERS: ADMIT Family Medicine; ATTEND Internal Medicine
DX: G40.409 Other generalized epilepsy and epileptic syndromes, not intractable, without status epilepticus (principal); I50.33 Acute on chronic diastolic (congestive) heart failure; F13.239 Sedative, hypnotic or anxiolytic dependence with withdrawal, unspecified; K86.1 Other chronic pancreatitis; Z20.822 Contact with and (suspected) exposure to COVID-19; R55 Syncope and collapse; I25.10 Atherosclerotic heart disease of native coronary artery without angina pectoris; I48.91 Unspecified atrial fibrillation; E11.9 Type 2 diabetes mellitus without complications; E87.6 Hypokalemia; E03.9 Hypothyroidism, unspecified; E78.5 Hyperlipidemia, unspecified; E86.0 Dehydration; I11.0 Hypertensive heart disease with heart failure; K57.90 Diverticulosis of intestine, part unspecified, without perforation or abscess without bleeding; R82.4 Acetonuria; Z86.73 Personal history of transient ischemic attack (TIA), and cerebral infarction without residual deficits; Z79.899 Other long term (current) drug therapy; I95.1 Orthostatic hypotension
CPT/HCPCS: 36415; 70544; 70551; 71045; 80053; 80061; 81001; 82550; 82948; 83036; 83605; 83690; 83735; 83880; 84100; 84132; 84484; 85025; 85379; 85610; 85730; 87040; 87081; 87635; 93005; 96365; 96375; 97116; 97161; 97530; 99285; C9803; G0378; J1815; J1953; J2060; J7030

== ENCOUNTER 2022-04-29 03:43 | Emergency (ER) | payer OTHER, MEDICARE ==
[~2022-04-29] VITALS: Ht 185.4 cm; Wt 109.1 kg
[~2022-04-29 03:43] MED LIST changes: -CEFD300C3 PO; +LACO100T2 PO; -LACO50TA2 PO; -LEVE10006 PO; +LISI5TAB22 PO; +LOP12.5T PO; +[UNRECOGNIZED DRUG - CODE] PO
[2022-04-29] MEDS ORDERED: normal saline 1000ml 1,000 ML IV ONE (04:20)
[2022-04-29 05:07] LABS: BASOPHILS # (AUTO) 0.1 X10'3 (0-0.2); BASOPHILS % (AUTO) 1.3 % (0-1); EOSINOPHILS # (AUTO) 0.1 X10'3 (0-0.9); EOSINOPHILS % (AUTO) 0.7 % (0-6); HEMATOCRIT 45.4 % (42.0-52.0); HEMOGLOBIN 15.6 g/dl (14.0-17.9); LYMPHOCYTES # (AUTO) 0.9 X10'3 (1.1-4.8); LYMPHOCYTES % (AUTO) 11.7 % (21-51); MEAN CORPUSCULAR HEMOGLOBIN 31.9 PG (27.0-31.0); MEAN CORPUSCULAR HGB CONC 34.3 g/dL (33.0-36.5); MEAN PLATELET VOLUME 9.3 FL (7.4-10.4); MONOCYTES # (AUTO) 0.5 X10'3 (0-0.9); MONOCYTES % (AUTO) 5.9 % (2-12); NEUTROPHILS # (AUTO) 6.3 X10'3 (1.8-7.7); NEUTROPHILS % (AUTO) 80.4 % (42-75); PLATELET COUNT 240 X10'3 (140-440); RED BLOOD COUNT 4.88 X10'6 (4.70-6.10); RED CELL DISTRIBUTION WIDTH 13.1 % (11.5-14.5); WHITE BLOOD COUNT 7.8 X10'3 (4.5-11.0)
[2022-04-29 05:16] LABS: ALANINE AMINOTRANSFERASE 26 U/L (12-78); ALBUMIN 3.6 G/DL (3.4-5.0); ALBUMIN/GLOBULIN RATIO 1.1 (1.1-1.5); ALKALINE PHOSPHATASE 83 IU/L (46-116); ANION GAP 11 (8-16); ASPARTATE AMINO TRANSFERASE 12 U/L (10-37); BILIRUBIN,TOTAL 0.6 MG/DL (0.1-1.0); BLOOD UREA NITROGEN 14 MG/DL (7-18); BUN/CREATININE RATIO 12.1 (5.4-32.0); CALCIUM 8.8 MG/DL (8.5-10.1); CHLORIDE 103 MMOL/L (99-107); CREATINE KINASE 43 U/L (39-308); CREATININE 1.16 MG/DL (0.60-1.10); GLUCOSE 162 MG/DL (70-104); MAGNESIUM 1.6 MG/DL (1.5-2.4); SODIUM 137 MMOL/L (135-145); TOTAL CARBON DIOXIDE 22.8 MMOL/L (24-32); TOTAL PROTEIN 6.9 G/DL (6.4-8.2); eGFR 62 ML/MIN
[2022-04-29 06:15] LABS: CLARITY,URINE CLEAR (Clear); GLUCOSE, URINE >=1000 mg/dl (Neg); KETONES,URINE NEGATIVE (Neg); LEUKOCYTE ESTERASE ,URINE NEGATIVE (Neg); NITRITES, URINE NEGATIVE (Neg); OCCULT BLOOD,URINE MODERATE (Neg); PROTEIN,URINE NEGATIVE (Neg); UROBILINOGEN,URINE 0.2 E.U/dL (0.2-1.0)
[2022-04-29 06:19] LABS: COLOR,URINE STRAW (Yellow); UA COLLECTION TYPE URINAL
[2022-04-29 06:27] LABS: BACTERIA,URINE 1+ /HPF (Neg); MUCUS STRANDS NONE SEEN /LPF (Neg); RBC,URINE 20-50 /HPF (0-2); SQUAMOUS EPITHELIAL CELL,UR NONE SEEN /LPF (FEW); WBC,URINE 0-4 /HPF (0-4)
[2022-04-29] MEDS ORDERED: levetiracetam 250mg tablet PO ONE (06:40)
--- NOTE | 2022-04-29 06:53 | NUR ---
spoke with nurse at [facility], advised patient must be sent back either by [facility] or daughter Padmini
--- NOTE | 2022-04-29 07:46 | NUR ---
[facility] CONTACTED FOR TRANSPORT, PENDING ETA
--- NOTE | 2022-04-29 11:00 | NUR ---
patient picked up by [facility], ambulated to wheelchair and taken back to facility. dishcarged with no other ocmplaints or concerns at this time. ivs removed
[2022-04-29 11:02] VITALS: BP 135/88
== END 2022-04-29 11:03 | disposition home or self-care (01) ==
LOC: ER 03:43
DX: R56.9 Unspecified convulsions (principal); I48.91 Unspecified atrial fibrillation; I10 Essential (primary) hypertension; E11.9 Type 2 diabetes mellitus without complications; E03.9 Hypothyroidism, unspecified; Z86.73 Personal history of transient ischemic attack (TIA), and cerebral infarction without residual deficits; Z85.9 Personal history of malignant neoplasm, unspecified; Z72.89 Other problems related to lifestyle; Z79.82 Long term (current) use of aspirin; Z79.899 Other long term (current) drug therapy
CPT/HCPCS: 36415; 80053; 81001; 82550; 83605; 83735; 85025; 93005; 96360; 96361; 99284; J7030

== ENCOUNTER 2023-09-25 07:41 | Emergency (ER) | payer OTHER, MEDICARE ==
[~2023-09-25] VITALS: Ht 188 cm; Wt 93.0 kg
[2023-09-25] MEDS ORDERED: iohexol 350MG/ML 100ml bottle IV ONE (07:46)
[2023-09-25] MEDS ORDERED: niCARDipine-NS 40mg/200ml IVPB IV SCH (08:10)
[2023-09-25] MEDS ORDERED: [UNRECOGNIZED DRUG - OTHER] IV ONE (08:10)
[2023-09-25] MEDS ORDERED: HUM PROTHROMBIN CPLX IV ONE (08:10)
[2023-09-25 08:14] LABS: BASOPHILS # (AUTO) 0.1 X10'3 (0-0.2); BASOPHILS % (AUTO) 0.9 % (0-1); EOSINOPHILS # (AUTO) 0.1 X10'3 (0-0.9); EOSINOPHILS % (AUTO) 0.9 % (0-6); HEMATOCRIT 46.4 % (42.0-52.0); HEMOGLOBIN 15.7 g/dl (14.0-17.9); LYMPHOCYTES % (AUTO) 16.5 % (21-51); MEAN CORPUSCULAR HEMOGLOBIN 31.8 PG (27.0-31.0); MEAN CORPUSCULAR HGB CONC 33.8 g/dL (33.0-36.5); MEAN CORPUSCULAR VOLUME 94.2 FL (78-98); MEAN PLATELET VOLUME 8.6 FL (7.4-10.4); MONOCYTES # (AUTO) 0.5 X10'3 (0-0.9); MONOCYTES % (AUTO) 7.5 % (2-12); NEUTROPHILS # (AUTO) 4.5 X10'3 (1.8-7.7); NEUTROPHILS % (AUTO) 74.2 % (42-75); PLATELET COUNT 208 X10'3 (140-440); RED BLOOD COUNT 4.93 X10'6 (4.70-6.10); RED CELL DISTRIBUTION WIDTH 13.5 % (11.5-14.5)
[2023-09-25 08:21] VITALS: BP 139/99; PULSE 77; RESP 14; TEMP 97.6; O2SAT 96
[2023-09-25 08:22] LABS: APTT 35 SECONDS (22-32); INR 1.1 INR; PROTHROMBIN TIME 12.2 SECONDS (9.0-12.0)
[2023-09-25 08:26] LABS: ALANINE AMINOTRANSFERASE 21 U/L (12-78); ALBUMIN 3.4 G/DL (3.4-5.0); ALKALINE PHOSPHATASE 93 IU/L (46-116); ANION GAP 11 (8-16); ASPARTATE AMINO TRANSFERASE 33 U/L (10-37); BILIRUBIN,TOTAL 0.7 MG/DL (0.1-1.0); BLOOD UREA NITROGEN 13 MG/DL (7-18); BUN/CREATININE RATIO 14.9 (10.0-20.0); CALCIUM 8.9 MG/DL (8.5-10.1); CHLORIDE 101 MMOL/L (99-107); CREATININE 0.87 MG/DL (0.60-1.10); GLUCOSE 132 MG/DL (70-104); SODIUM 137 MMOL/L (135-145); TOTAL CARBON DIOXIDE 24.6 MMOL/L (24-32); TOTAL PROTEIN 6.8 G/DL (6.4-8.2); eCRCL 85 ML/MIN; eGFR 86 ML/MIN
== END 2023-09-25 08:28 | disposition short-term general hospital (02) ==
LOC: ER 07:42
DX: I63.9 Cerebral infarction, unspecified (principal); Z20.822 Contact with and (suspected) exposure to COVID-19; R40.2410 Glasgow coma scale score 13-15, unspecified time; I48.91 Unspecified atrial fibrillation; I10 Essential (primary) hypertension; E03.9 Hypothyroidism, unspecified; I48.0 Paroxysmal atrial fibrillation; Z72.89 Other problems related to lifestyle; Z79.82 Long term (current) use of aspirin; Z79.899 Other long term (current) drug therapy
CPT/HCPCS: 36415; 70450; 71045; 80053; 80177; 84443; 85025; 85610; 85730; 87811; 93005; 99285; J7030; J3490; Q9967

== ENCOUNTER 2024-04-05 10:47 | Emergency (ER) | payer OTHER, MEDICARE ==
[~2024-04-05] VITALS: Ht 185.4 cm; Wt 85.4 kg
[~2024-04-05 10:47] MED LIST changes: -RIVA20TA PO
[2024-04-05 10:53] VITALS: TEMP 98.5
[2024-04-05] MEDS ORDERED: APIX5TAB3 PO (13:05)
[2024-04-05] MEDS ORDERED: SERT25TA PO (13:05)
[2024-04-05] MEDS ORDERED: PANT20TA18 PO (13:06)
[2024-04-05] MEDS ORDERED: MAGN250T11 PO (13:06)
[2024-04-05 15:43] LABS: EOSINOPHILS # (AUTO) 0.1 X10'3 (0-0.9); HEMOGLOBIN 14.9 g/dl (14.0-17.9); MONOCYTES # (AUTO) 0.6 X10'3 (0-0.9); WHITE BLOOD COUNT 7.4 X10'3 (4.5-11.0)
[2024-04-05 15:46] LABS: BASOPHILS # (AUTO) 0.1 X10'3 (0-0.2); BASOPHILS % (AUTO) 0.9 % (0-1); HEMATOCRIT 44.4 % (42.0-52.0); LYMPHOCYTES # (AUTO) 1.4 X10'3 (1.1-4.8); MEAN CORPUSCULAR HEMOGLOBIN 31.6 PG (27.0-31.0); MEAN CORPUSCULAR HGB CONC 33.5 g/dL (33.0-36.5); MEAN CORPUSCULAR VOLUME 94.5 FL (78-98); MEAN PLATELET VOLUME 8.8 FL (7.4-10.4); NEUTROPHILS # (AUTO) 5.3 X10'3 (1.8-7.7); NEUTROPHILS % (AUTO) 71.1 % (42-75); PLATELET COUNT 232 X10'3 (140-440); RED CELL DISTRIBUTION WIDTH 13.2 % (11.5-14.5)
[2024-04-05 16:00] LABS: ALBUMIN 3.3 G/DL (3.4-5.0); ANION GAP 5 (8-16); BLOOD UREA NITROGEN 14 MG/DL (7-18); BUN/CREATININE RATIO 14.1 (10.0-20.0); CALCIUM 9.1 MG/DL (8.5-10.1); CHLORIDE 104 MMOL/L (99-107); CREATININE 0.99 MG/DL (0.60-1.10); GLUCOSE 127 MG/DL (70-104); MAGNESIUM 1.9 MG/DL (1.5-2.4); SODIUM 138 MMOL/L (135-145); TOTAL CARBON DIOXIDE 28.6 MMOL/L (24-32); eCRCL 72 ML/MIN; eGFR 73 ML/MIN
[2024-04-05] MEDS ORDERED: lisinopril 10 MG tablet PO ONE (16:50)
[2024-04-05] MEDS: lisinopril 5mg tablet PO ONE (17:40)
[2024-04-05 18:06] VITALS: BP 144/108; PULSE 78; RESP 19; O2SAT 95
== END 2024-04-05 18:12 | disposition home or self-care (01) ==
LOC: ER 10:47
DX: R40.4 Transient alteration of awareness (principal); I10 Essential (primary) hypertension; E03.9 Hypothyroidism, unspecified; Z79.899 Other long term (current) drug therapy; Z79.2 Long term (current) use of antibiotics
CPT/HCPCS: 36415; 70450; 80048; 83735; 84484; 85025; 93005; 99284

== ENCOUNTER 2025-02-24 06:20 | Inpatient (IN) | payer OTHER, MEDICARE ==
[~2025-02-24] VITALS: Ht 188 cm; Wt 96.0 kg
[~2025-02-24 06:20] MED LIST changes: +APIX5TAB3 PO; -ASPI81TA52 PO; -ATOR-2 PO; +ATOR-429 PO; +CHOL100012 PO; -CHOL100025 PO; -CYAN10006 IM; -FERR325T32 PO; -LEVO150T8 PO; +LISI20TA28 PO; -LISI5TAB22 PO; -LOP12.5T PO; +LOPE2TAB25 PO; +MAGN250T11 PO; -METF-1203 PO; +METF-436 PO; -OXYB15TA19 PO; -PANT-47 PO; +PANT20TA18 PO; +POLY119P2 PO; -POLY17PO10 PO; +SERT25TA PO; +SYN0.088T PO; -[UNRECOGNIZED DRUG - CODE] PO
--- NOTE | 2025-02-24 06:50 | RADIOLOGY REPORT ---
EXAM: XR Chest, 1 View CLINICAL INDICATION: CP TECHNIQUE: Frontal view of the chest. COMPARISON: DI CHEST,SINGLE VIEW on DOS: 05/04/24, DI CHEST,SINGLE VIEW on DOS: 01/09/24, DI CHEST,SIN GLE VIEW on DOS: 11/08/23, DI CHEST,SINGLE VIEW on DOS: 09/25/23, CHEST,SINGLE VIEW on DOS: 12/19/21 FINDINGS: LUNGS AND PLEURAL SPACES: Unremarkable. No consolidation. No pneumothorax. HEART: Unremarkable. No cardiomegaly. MEDIASTINUM: Unremarkable. Normal mediastinal contour. BONES/JOINTS: Unremarkable. No acute fracture. OTHER FINDINGS: . IMPRESSION: No acute cardiopulmonary process.
[2025-02-24 07:00] LABS: BASOPHILS % (AUTO) 0.7 % (0-1); EOSINOPHILS # (AUTO) 0.1 X10'3 (0-0.9); EOSINOPHILS % (AUTO) 0.9 % (0-6); HEMATOCRIT 47.1 % (42.0-52.0); HEMOGLOBIN 16.1 g/dl (14.0-17.9); LYMPHOCYTES # (AUTO) 0.9 X10'3 (1.1-4.8); LYMPHOCYTES % (AUTO) 12.2 % (21-51); MEAN CORPUSCULAR HEMOGLOBIN 30.9 PG (27.0-31.0); MEAN CORPUSCULAR HGB CONC 34.3 g/dL (33.0-36.5); MEAN CORPUSCULAR VOLUME 90.1 FL (78-98); MEAN PLATELET VOLUME 9.2 FL (7.4-10.4); MONOCYTES # (AUTO) 0.5 X10'3 (0-0.9); MONOCYTES % (AUTO) 6.9 % (2-12); NEUTROPHILS # (AUTO) 5.6 X10'3 (1.8-7.7); NEUTROPHILS % (AUTO) 79.3 % (42-75); PLATELET COUNT 229 X10'3 (140-440); RED BLOOD COUNT 5.23 X10'6 (4.70-6.10); RED CELL DISTRIBUTION WIDTH 13.6 % (11.5-14.5)
--- NOTE | 2025-02-24 07:04 | [facility] CONSULT REPORT ---
[facility] Procedure Note [facility] Procedure Note Consult [facility] Note # Demographics Consult Type: Acute Stroke Level 1 (0-4.5 hrs) Patient Location: Emergency Room First Name: RIC Last Name: RAJINDER Date of : 1945 Age: 79 Gender: [place] [facility] [place] Initial Page (): 02/24/2025 06:42 Time of Return Call (): 02/24/2025 06:42 # HPI Chief Complaint: - seizures History: 79-year-old male with a history of recurrent seizures and prior strokes, presented with acute onset of aphasia following a seizure this morning. Patient is coming from an assisted living facility. Staff at the facility heard a loud noise in his room at 3 AM and found him on the floor. Patient presumably had a seizure. Following the seizure, Mr. Dobbs remained aphasic, which raised a suspicion for a stroke. A stroke alert was initiated. When asked questions, he could only respond with "[place]," regardless of the query. Despite the aphasia, he maintained his ability to move and perform other tasks. 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 Last Known Normal: - I have collected independent history specific to time last normal or last known well. We have collaborated with the provider and at this time, we have the most current timeline with the information that is available. - 3 AM Duration: - 3 AM # Scores Time of exam and NIHSS (): 02/24/2025 07:00 Level of Consciousness 1a: [0] = Alert; keenly responsive LOC Questions 1b: [2] = Answers neither correctly LOC Commands 1c: [0] = Performs both tasks correctly Best Gaze 2: [0] = Normal Visual 3: [0] = No visual loss Facial Palsy 4: [0] = Normal symmetrical movements Motor Arm Left 5a: [0] = No drift Motor Arm Right 5b: [0] = No drift Motor Leg Left 6a: [0] = No drift Motor Leg Right 6b: [0] = No drift Limb Ataxia 7: [0] = Absent Sensory 8: [0] = Normal Best Language 9: [1] = Kkdr-xk-dkhsmysf aphasia Dysarthria 10: [2] = Severe dysarthria Extinction and Inattention 11: [0] = No abnormality NIHSS Total: 5 # Exam SBP: 128 DBP: 78 # PMH-FH-SH Medications: Vimpat 100 mg BID # Data Time Head CT personally read by me (Elk Time): 02/24/2025 06:[address]: - no bleed - preliminarily reviewed by me, please refer to radiology read for official reading CTA Head: - no large vessel occlusion - preliminarily reviewed by me, please refer to radiology read for official reading # Assessment Impression: - Stroke rule out. Given he's had prior events like this after a breakthrough seizure, low suspicion for a stroke. Recommend MRI Brain wo - if no acute infarct, then does not need rest of stroke work-up. # Plan Thrombolytic/Intervention: NOT IV Thrombolysis or IA Intervention candidate Thrombolytic Exclusion (< 3 hour window): - actively on NOAC Labs: - ua - TSH - CBC - comprehensive metabolic panel Imaging: (urgency: routine): - MRI Brain without contrast Medication: - Recommend Vimpat 200 mg IV x 1. Then can increase his Vimpat to 150 mg twice daily for maintenance - OK to continue with home Eliquis for now DVT Prophylaxis: - chemical DVT prophylaxis Other: - If patient has any neurological deterioration please call me back immediately - I have discussed my recommendations with the referring provider - would not pursue stroke work-up if MRI is negative - Allow for permissive HTN (up to 220/110 mmHg) until MRI brain wo rules out a stroke. Additional Recommendations: - Please call back [facility] or in-house neurology if MRI shows an acute infarct for additional recommendations Disposition: admit # Demographics First Name: RIC Last Name: RAJINDER [place] [facility] [place] Consult Order placed for: Yes ROLANDO MCGINNIS MD February 24, 2025 07:04
[2025-02-24 07:07] LABS: APTT 26 SECONDS (22-32); PROTHROMBIN TIME 10.7 SECONDS (9.0-12.0)
--- NOTE | 2025-02-24 07:09 | ELECTROCARDIOGRAPH REPORT ---
[facility] Test Date: 2025-02-24 Test Time: 06:27:05 Pat Name: RIC CALVILLO Department: EMERGENCY ROOM Patient ID: [facility]-[id number] Room: Gender: M [employer]: : 1945 Requested By: KORI SIMPSON Order Number: [id number] Reading MD: Dr. Kori Simpson Measurements Intervals [place] Rate: 97 P: 0 TN: 0 QRS: -42 QRSD: 112 T: 58 QT: 341 QTc: 433 Interpretive Statements Atrial flutter Borderline IVCD with LAD Abnormal R-wave progression, late transition Inferior infarct, old Electronically Signed On 02-24-2025 8:14:[address] Kori Simpson Please click the below link to view image of tracing.
--- NOTE | 2025-02-24 07:13 | Physician Documentation ---
History of Present Illness ~ Chief Complaint: Stroke Alert Stated Complaint: SEIZURE Time Seen by MD: 06:35 OK to notify your PCP?: Yes Primary Medical Doctor: IMTIAZ Source: patient, RN/MD, EMS, RN notes reviewed, EMS notes reviewed, other (Stroke nurse) Mode of Arrival: EMS, Stretcher Exam Limitations: clinical condition HPI This patient has been seen many times in the ER has a history of breakthrough seizures as well as prior seizure activity with some baseline aphasia. There was some discussion of changing the patient to DNR and comfort care for recurrent seizure activity. Patient comes from [facility]. He was doing well at 3:00 a.m. when he was last seen normal. This morning at a seizure and then had dense aphasia. It was unclear to the staff whether he was postictal or new onset seizure and was sent here for a stroke. EMS states the patient's fingerstick was 195 he is able to follow some commands but is only able to answer [place] to all questions. Patient is unable to provide any additional history. Medication Reconciliation Allergies: Coded Allergies: No Known Allergies (Unverified , 07/30/12) Scheduled Atorvastatin Calcium* (Lipitor*), 1 TABLET PO HS, (Reported) Lacosamide (Vimpat), 1 TAB PO TID, (Reported) Levothyroxine Sodium* (Synthroid*), 175 MCG PO DAILY, (Reported) Lisinopril (Lisinopril), 5 MG PO DAILY, (Reported) Magnesium Oxide (Magnesium), 400 MG PO TID, (Reported) Melatonin (Melatonin), 1 TAB PO HS, (Reported) Metformin Hcl* (Metformin ER*), 1 TAB PO DAILY, (Reported) Pantoprazole Sodium (Protonix), 1 TAB PO DAILY, (Reported) Polyethylene Glycol 3350 (Miralax), 17 GM PO DAILY, (Reported) Sertraline Hcl* (Zoloft*), 1 TAB PO DAILY, (Reported) Scheduled PRN Loperamide Hcl (Loperamide), 1 TAB PO PRN PRN for diarrhea, (Reported) Discontinued Medications Apixaban (Eliquis), 1 TAB PO Q12H, (Reported) Discontinued Reason: patient no longer taking Cholecalciferol (Vitamin D3) (Vitamin D3), 1 TAB PO DAILY, (Reported) Discontinued Reason: patient no longer taking Metformin Hcl (Metformin Hcl), 1 TAB PO WS, (Reported) Discontinued Reason: Other Past Medical History Past Medical History: CVA/TIA/Stroke, Seizures, *CARDIOVASCULAR*, Atrial Fibrillation, Hypertension, Diabetes, Hypothyroidism, *CANCER* Past Surgical History: no surgical history Patient History: Patient reports no known family medical history. Alcohol Use: Occasionally Drug Use: none Lives with: S/O Lives In: Assisted Care Occupation: disabled Review of Systems All Other Systems at this time: Reviewed and Negative ROS As stated above in the HPI, otherwise all systems are reviewed and negative. Unable to obtain complete ROS: medical urgency Physical Exam Vital Signs: RN Vital Signs have been reviewed: Yes, Temperature: 97.7, Source: Oral, Heart Rate: 108, Respiratory Rate: 20, BP: 142/94, Pulse Oximetry: 95, Weight: 96.000 Oxygen Flow Rate: 2.0 General Appearance General: The patient is well developed, well nourished, nontoxic appearing and is in no acute distress. Skin: [place], warm and dry with no rashes. HEENT: Head was normocephalic and atraumatic. Eyes - pupils equal, round, reactive to light and accommodation. Extraocular movements were intact. Conjunctivae were nonicteric. Ears - bilateral tympanic membranes were normal. The mouth and oropharynx were clear with moist mucous membranes. Neck: Supple and nontender. There was no jugular venous distention, Chest: Clear to auscultation bilaterally without wheezes, rales or rhonchi. No accessory muscle use. No dullness to percussion. Heart: Rate regular and rhythmic. S1, S2. No murmurs. Palpation of the chest wall was normal. No rubs or thrills. Abdomen: Soft, nontender and nondistended. Positive bowel sounds. No guarding or rebound. No hepatosplenomegaly or palpable masses. Extremities: No cyanosis, clubbing or edema. The patient moves all extremities. Pulses were equal and symmetric. Neurologic: Cranial nerves II-XII were intact. Sensation was intact to light touch throughout. Motor strength was 5/5 in all four extremities. Deep tendon reflexes were intact in both upper and lower extremities. Dense aphasia questionable [id number] Psychologic: The patient was oriented to person, place and time. The patient demonstrated appropriate judgement and insight. Progress Results/Orders Reviewed/noted all lab results: Yes Results/Orders Orders - SEBASTIEN STRONG MD Chest,Single View (02/24/25 06:23) Monitor (02/24/25 06:23) Saline Lock (02/24/25 06:23) Oxygen (02/24/25 06:23) Electrocardiogram (02/24/25 06:23) Hs Troponin I W Calculations (02/24/25 09:23) Accucheck (02/24/25 06:23) Ct Stroke Alert (02/24/25 06:45) Culture Blood (02/24/25 06:23) Straight Cath For Urine Sample (02/24/25 06:23) Cta Neck/Head (02/24/25 06:30) [place] Prov.Neuro Consult (02/24/25 06:30) Page Hospitalist (02/24/25 07:28) Fill Out Med Reconciliation (02/24/25 07:28) Completed Orders - SEBASTIEN STRONG MD Chest,Single View (02/24/25 06:23) Cbc/Diff (02/24/25 06:23) PBNP (02/24/25 06:23) Electrocardiogram (02/24/25 06:23) CMP (02/24/25 06:23) Hs Troponin I W Calculations (02/24/25 06:23) Hs Troponin I W Calculations (02/24/25 08:23) Ct Stroke Alert (02/24/25 06:45) PTT (02/24/25 06:23) Pt Inr (02/24/25 06:23) Urinalysis, Cult If Indicated (02/24/25 06:23) Procalcitonin (02/24/25 06:23) Lacticsepsis (02/24/25 06:23) Cta Neck/Head (02/24/25 06:30) Lacosamide 200mg/20ml Inj. (Vimpat 200mg (02/24/25 07:20) Lorazepam Inj (Ativan Inj) (02/24/25 08:08) Lorazepam Inj (Ativan Inj) (02/24/25 08:10) Medications Received in ER Medications (Trade) Dose Ordered Sig/Inna Route PRN Reason Start Time Stop Time Status Last Admin Dose Admin Lacosamide 200 mg/ Sodium Chloride 120 ml @ 240 mls/hr ONCE ONCE IV 02/24/25 07:20 02/24/25 07:49 DC 02/24/25 07:49 240 MLS/HR (Ativan inj) 2 mg ONCE ONCE IV 02/24/25 08:10 02/24/25 08:13 DC 02/24/25 08:12 2 MG Dextrose/Sodium Chloride 1,000 ml @ 100 mls/hr Q10H IV 02/24/25 08:10 02/24/25 08:31 100 MLS/HR Vital Signs 02/24/25 02/24/25 02/24/25 02/24/25 06:21 06:53 06:53 06:53 Temp 98.0 97.6 Pulse 107 108 107 Resp 18 12 14 13 B/P (MAP) 128/78 142/94 (110) 142/94 Pulse Ox 92 94 93 O2 Flow Rate 2.0 02/24/25 02/24/25 02/24/25 02/24/25 07:11 07:11 07:54 08:12 Temp 97.7 98.7 98.7 Pulse 108 105 98 Resp 20 17 20 B/P (MAP) 142/94 (110) 108/73 (85) 111/81 (91) Pulse Ox 95 94 94 95 O2 Flow Rate 2.0 2 2.0 2.0 FiO2 N/A Laboratory Tests Test 02/24/25 06:30 02/24/25 06:32 02/24/25 07:52 02/24/25 08:12 Glucometer 187 H White Blood Count 7.0 Red Blood Count 5.23 Hemoglobin 16.1 Hematocrit 47.1 Mean Corpuscular Volume 90.1 Mean Corpuscular Hemoglobin 30.9 Mean Corpuscular Hemoglobin Concent 34.3 Red Cell Distribution Width 13.6 Platelet Count 229 Mean Platelet Volume 9.2 Neutrophils (%) (Auto) 79.3 H Lymphocytes (%) (Auto) 12.2 L Monocytes (%) (Auto) 6.9 Eosinophils (%) (Auto) 0.9 Basophils (%) (Auto) 0.7 Neutrophils # (Auto) 5.6 Lymphocytes # (Auto) 0.9 L Monocytes # (Auto) 0.5 Eosinophils # (Auto) 0.1 Basophils # (Auto) 0.0 CBC Comment Prothrombin Time 10.7 INR International Normalized Ratio 1.0 Activated Partial Thromboplast Time 26 Coagulation Comments Sodium Level 137 Potassium Level 4.0 Chloride Level 102 Carbon Dioxide Level 25.6 Anion Gap 9 Blood Urea Nitrogen 13 Creatinine 1.18 H Estimated GFR/1.73 m2 60 BUN/Creatinine Ratio 11.0 Glucose Level 178 H Lactic Acid Level 2.3 H Calcium Level 9.2 Total Bilirubin 0.6 Aspartate Amino Transf (AST/SGOT) 23 Alanine Aminotransferase (ALT/SGPT) 29 Alkaline Phosphatase 123 H Troponin I High Sensitivity 11 16 Pro-B-Type Natriuretic Peptide 159 Total Protein 7.1 Albumin 3.3 L Globulin 3.8 Albumin/Globulin Ratio 0.9 L Procalcitonin < 0.05 Chemistry Comments Urine Specimen Description Non-specified Urine Color Yellow Urine Clarity Clear Urine pH 6.5 Urine Specific [place] 1.010 Urine Protein Negative Urine Glucose (UA) 500 H Urine Ketones Negative Urine Occult Blood Negative Urine Nitrite Negative Urine Bilirubin Negative Urine Urobilinogen 0.2 Urine Leukocyte Esterase Negative Urine Culture Indicated Not ind Volume Urine Centrifuged 10 ml Urine Comment Troponin I High Sens Percent Delta 45 Troponin I Hi Sens Absolute Change 5 Microbiology Date/Time Source Procedure Growth Status 02/24/25 08:12 Blood Arm Right Blood Culture - Preliminary NEGATIVE (LESS THAN 24 HOURS) Resulted Re-Evaluation Re-Evaluation #1: Re-Evaluation: Improved Progress Patient was seen and examined. Patient is given reassurance. The patient was found to have severe aphasia. Passed the swallow test. I spoke to tele neurology who recommended an MRI also to increase his seizure medications to 150 mg b.i.d. Vimpat. Patient's CT and CTA were all reassuring. I also spoke to Neurology and radiologist regarding the patient's clinical presentation and norm al CT findings. Patient's CBC was within normal limits and reassuring negative for anemia prior chemistries were within normal limits. Patient's glucose is slightly elevated at 187 and lactic acid is elevated 2.3 most likely due to seizure activity troponin is negative. Urinalysis is also negative for any signs of infection. EKG showed no signs of ischemia. The patient had another seizure received Ativan and was also admitted to the hospitalist at the same time. Concern for status epilepticus. Patient is receiving his epileptic medications including a bolus and now received Ativan benzodiazepine. Continuous engine turner interpretation shows sinus tachycardia heart rate 100s, abnormal, my interpretation. Pulse oximetry monitor interpretation shows normal oxygenation at 94% room air, normal, my interpretation. Re-Evaluation #2: Re-Evaluation Time: 08:15 Re-Evaluation: Worsened Progress Patient was seizing at this time and was given 2mg of Ativan. EKG/XRAY/CT/US/VASC/MRI EKG : Additional Comment [facility] Test Date: 2025-02-24 Test Time: 06:27:05 Pat Name: RIC CALVILLO Department: EMERGENCY ROOM Room: Gender: M Director Independent: : 1945 Requested By: SEBASTIEN STRONG Order Number: [id number] Reading MD: Dr. Sebastien Strong Measurements Intervals [place] Rate: 97 P: 0 IA: 0 QRS: -42 QRSD: 112 T: 58 QT: 341 QTc: 433 Interpretive Statements Atrial flutter Borderline IVCD with LAD Abnormal R-wave progression, late transition Inferior infarct, old Electronically Signed On 02-24-2025 8:14:[address] Sebastien Strong Please click the below link to view image of tracing. EKG Date and Time:02/24/25626 Electronically Signed by: SEBASTIEN STRONG MD Date and Time: 02/24/25 0814 Chest X-Ray : Additional Comments EXAM: XR Chest, 1 View CLINICAL INDICATION: CP TECHNIQUE: Frontal view of the chest. COMPARISON: DI CHEST,SINGLE VIEW on DOS: 05/04/24, DI CHEST,SINGLE VIEW on DOS: 01/09/24, DI CHEST,SINGLE VIEW on DOS: 11/08/23, DI CHEST,SINGLE VIEW on DOS: 09/25/23, CHEST,SINGLE VIEW on DOS: 12/19/21 FINDINGS: LUNGS AND PLEURAL SPACES: Unremarkable. No consolidation. No pneumothorax. HEART: Unremarkable. No cardiomegaly. MEDIASTINUM: Unremarkable. Normal mediastinal contour. BONES/JOINTS: Unremarkable. No acute fracture. OTHER FINDINGS: . IMPRESSION: No acute cardiopulmonary process. #1: Impression Ordering Physician: SEBASTIEN STRONG MD Exam: CT STROKE ALERT CLINICAL INFORMATION: 79 years old, Male; Stroke Alert. TECHNIQUE: Axial imaging was obtained through the brain without contrast. Coronal and sagittal reformatted images were obtained, reviewed, and stored. Images were reviewed in brain and bone windows. All CT scans at this medical facility are performed using dose modulation techniques as appropriate to a performed exam including the following: Automated exposure control was utilized; adjustment of the MA and/or KV according to patient size; and use of iterative reconstruction technique. CTDIvol = 66.93 mGy DLP = 1159.38 mGy-cm COMPARISON: CT CT STROKE ALERT on DOS: 05/04/24, CT CT HEAD on DOS: 04/05/24, CT CT HEAD on DOS: 01/09/24 FINDINGS: There is no acute intracranial hemorrhage. No mass effect or midline shift. Scattered areas of hypoattenuation are seen in the periventricular and subcortical white matter, which are nonspecific but most likely sequelae of small vessel ischemic disease.The ventricles and sulci are within normal limits in size for age. Basal cisterns are patent. The calvarium is unremarkable. Paranasal sinuses and mastoid air cells are clear. IMPRESSION: 1. No CT evidence of acute intracranial abnormality. 2. Nonacute findings as described above. Critical findings Critical Result: Stroke Alert Findings discussed with SEBASTIEN RICH at 02/24/2025 09:18 AM CDT, and acknowledged receipt and understanding of the findings. .. #2: Impression CLINICAL INFORMATION: 79 years old, Male; Stroke Alert. TECHNIQUE: Axial imaging was obtained through the brain without contrast. Coronal and sagittal reformatted images were obtained, reviewed, and stored. Images were reviewed in brain and bone windows. All CT scans at this medical facility are performed using dose modulation techniques as appropriate to a per formed exam including the following: Automated exposure control was utilized; adjustment of the MA and/or KV according to patient size; and use of iterative reconstruction technique. CTDIvol = 66.93 mGy DLP = 1159.38 mGy-cm COMPARISON: CT CT STROKE ALERT on DOS: 05/04/24, CT CT HEAD on DOS: 04/05/24, CT CT HEAD on DOS: 01/09/24 FINDINGS: There is no acute intracranial hemorrhage. No mass effect or midline shift. Scattered areas of hypoattenuation are seen in the periventricular and subcortical white matter, which are nonspecific but most likely sequelae of small vessel ischemic disease.The ventricles and sulci are within normal limits in size for age. Basal cisterns are patent. The calvarium is unremarkable. Paranasal sinuses and mastoid air cells are clear. IMPRESSION: 1. No CT evidence of acute intracranial abnormality. 2. Nonacute findings as described above. Critical findings Critical Result: Stroke Alert Findings discussed with SEBASTIEN RICH at 02/24/2025 09:18 AM CDT, and acknowledged receipt and understanding of the findings. .. Electronically Signed by:GENE HAWKINS DO Date & Time: 02/24/25723 Dictated by: GENE HAWKINS DO Dictation date and time: 02/24/25723 Medical Decision Making Additional info obtained from: old records Differential Dx:Considerations: Include: Pitts's [place]alse[place], CVA, DKA, Drug overdose, Electrolyte imbalance, Encephalopathy, Hypoxemia, Hypoglycemia, Mass lesion, Subarachnoid Hemorrhage, TIA, Other Departure Time of Disposition: 09:47 Disposition: ADMITTED INPATIENT Admitted to Inpatient Unit: yes, to hospitalist Impression: Primary Impression: Status epilepticus Additional Impression: CVA (cerebral vascular accident) Qualified Codes: I63.9 - Cerebral infarction, unspecified Condition: Guarded Referrals: NO PRIMARY CARE PROVIDER (PCP) Education Educated: Patient Educated regarding: diagnosis, prognosis, need for follow up, other Critical Care Note Total Time (mins): 30 Critical Care Note The very real possibility of a deterioration of this patient's condition required the highest level of my preparedness for sudden, emergent intervention. I provided critical care services, which included medication orders, frequent reevaluations of the patient's condition and response to treatment, ordering and reviewing test results, and discussing the case with various consultants. Excludes time spent performing separately billable procedures. The critical care time associated with the care of the patient was. 30 minutes level one stroke alert and management Signature Scribe Signature: Scribed for Sebastien Strong MD by Fabiana Curiel . 02/24/25 08:48 (departure) Attestation: The note accurately reflects work and decisions made by me.Sebastien Strong MD 02/24/25 07:27 SEBASTIEN STRONG MD February 24, 2025 07:13 FABIANA CRABTREE February 24, 2025 08:50
[2025-02-24] MEDS ORDERED: LACOSAMIDE (Vimpat) 100mg/10ml (10 MG/ML) oral UD solution PO SCH (07:15)
--- NOTE | 2025-02-24 07:26 | RADIOLOGY REPORT ---
CLINICAL INFORMATION: 79 years old, Male; Stroke Alert. TECHNIQUE: Axial imaging was obtained through the brain without contrast. Coronal and sagittal reform atted images were obtained, reviewed, and stored. Images were reviewed in brain and bone windows. Al l CT scans at this medical facility are performed using dose modulation techniques as appropriate to a performed exam including the following: Automated exposure control was utilized; adjustment of the MA and/or KV according to patient size; and use of iterative reconstruction technique. CTDIvol = 66.9 3 mGy DLP = 1159.38 mGy-cm COMPARISON: CT CT STROKE ALERT on DOS: 05/04/24, CT CT HEAD on DOS: 04/05/24, CT CT HEAD on DOS: 01/09/24 FINDINGS: There is no acute intracranial hemorrhage. No mass effect or midline shift. Scattered areas of hypoattenuation are seen in the periventricular and subcortical white matter, which are nonspecif ic but most likely sequelae of small vessel ischemic disease.The ventricles and sulci are within norm al limits in size for age. Basal cisterns are patent. The calvarium is unremarkable. Paranasal sinus es and mastoid air cells are clear. IMPRESSION: 1. No CT evidence of acute intracranial abnormality. 2. Nonacute findings as described above. Critical findings Critical Result: Stroke Alert Findings discussed with KORI RICH at 02/24/2025 09:18 AM CDT, and acknowledged receipt and under standing of the findings. ..
--- NOTE | 2025-02-24 07:33 | RADIOLOGY REPORT ---
CLINICAL INFORMATION: 79 years old, Male; STROKE ALERT APHASIA. TECHNIQUE: Axial CTA images of the head and neck were obtained after the uneventful administration o f 100 mL Omnipaque 350 IV contrast. Coronal and sagittal reformatted images and MIP images were obtai shamika, reviewed, and stored. Measurements of carotid stenosis are made per NASCET criteria. All CT scan s at this medical facility are performed using dose modulation techniques as appropriate to a perform ed exam including the following: Automated exposure control was utilized; adjustment of the MA and/or KV according to patient size; and use of iterative reconstruction technique. CTDIvol = 54.41, 16.26, 0.07, 0.07 mGy DLP = 635.22 mGy-cm COMPARISON: CT CTA NECK/HEAD on DOS: 05/04/24 FINDINGS: CTA HEAD: Posterior cerebral arteries, basilar artery, and intracranial segments of the distal verteb ral arteries are normal in caliber and course with no evidence of aneurysm, large vessel occlusion, s ignificant stenosis, or vascular malformation. The anterior and middle cerebral arteries and intracra nial segments of the distal internal carotid arteries are normal in caliber and course with no eviden ce of aneurysm, large vessel occlusion, significant stenosis, or vascular malformation. Retention cys t versus polyp in the left maxillary sinus incidentally noted. Mild mucosal thickening of the paranas al sinuses. CTA NECK: Normal configuration of the aortic arch with patent origins of the brachiocephalic artery, left common carotid artery, and left subclavian artery. Moderate atherosclerotic calcification of the aortic arch. Subclavian arteries are patent with no significant stenosis. Moderate atherosclerotic c alcification of the carotid bifurcations bilaterally without significant stenosis. The bilateral comm on carotid, internal carotid, and external carotid arteries are otherwise patent with no significant stenosis or evidence of dissection. Vertebral arteries are patent with no significant stenosis or reji dence of dissection. Multilevel degenerative disc disease in the cervical spine with associated disc space narrowing, endplate sclerosis, and endplate spurring. Multilevel facet and uncinate hypertrophy with areas of moderate neural foraminal stenosis. IMPRESSION: 1. CTA head demonstrates no evidence of large vessel occlusion, aneurysm, or significant stenosis. 2. CTA neck demonstrates no evidence of carotid or vertebral dissection or significant stenosis. 3. Additional findings as detailed above.
[2025-02-24 07:46] LABS: ALANINE AMINOTRANSFERASE 29 U/L (12-78); ALBUMIN 3.3 G/DL (3.4-5.0); ALBUMIN/GLOBULIN RATIO 0.9 (1.1-1.5); ALKALINE PHOSPHATASE 123 IU/L (46-116); ANION GAP 9 (8-16); ASPARTATE AMINO TRANSFERASE 23 U/L (10-37); BILIRUBIN,TOTAL 0.6 MG/DL (0.1-1.0); BLOOD UREA NITROGEN 13 MG/DL (7-18); CALCIUM 9.2 MG/DL (8.5-10.1); CHLORIDE 102 MMOL/L (99-107); CREATININE 1.18 MG/DL (0.60-1.10); GLUCOSE 178 MG/DL (70-104); SODIUM 137 MMOL/L (135-145); TOTAL CARBON DIOXIDE 25.6 MMOL/L (24-32); TOTAL PROTEIN 7.1 G/DL (6.4-8.2); eCRCL 61 ML/MIN; eGFR 60 ML/MIN
[2025-02-24] MEDS: LACOSAMIDE 200mg/20ml inj. 200 MG in normal saline 100ml IV soln 100 ML IV ONE (07:49)
[2025-02-24 07:53] LABS: PRO BRAIN NATRIURETIC PEPTIDE 159 PG/ML (0-450)
[2025-02-24] MEDS ORDERED: morphine 2 MG/ML inj. syringe IV PRN ×2 (08:10)
[2025-02-24] MEDS ORDERED: magnesium hydroxide 30ml (MOM) UD suspension PO PRN (08:10)
[2025-02-24] MEDS ORDERED: ondansetron/PF 4mg/2ml inj IV PRN (08:10)
[2025-02-24] MEDS ORDERED: mag hydrox/Alum hydrox/simeth 30ml oral suspension PO PRN (08:10)
[2025-02-24] MEDS ORDERED: acetaminophen 325mg tablet PO PRN ×2 (08:10)
[2025-02-24] MEDS: LORazepam 2 mg/ml vial ONE (08:11)
[2025-02-24] MEDS: LORazepam 2 mg/ml vial IV ONE (08:12)
[2025-02-24 08:27] LABS: BILIRUBIN,URINE NEGATIVE (Neg); CLARITY,URINE CLEAR (Clear); COLOR,URINE YELLOW (Yellow); GLUCOSE, URINE 500 mg/dl (Neg); KETONES,URINE NEGATIVE (Neg); LEUKOCYTE ESTERASE ,URINE NEGATIVE (Neg); OCCULT BLOOD,URINE NEGATIVE (Neg); PH,URINE 6.5 (4.8-8.0); PROTEIN,URINE NEGATIVE (Neg); UROBILINOGEN,URINE 0.2 E.U/dL (0.2-1.0)
[2025-02-24 08:29] LABS: UA COLLECTION TYPE NON-SPECIFIED
[2025-02-24 08:30] LABS: NITRITES, URINE NEGATIVE (Neg)
[2025-02-24] MEDS: dextrose 5%-1/2 normal saline 1,000 ML IV SCH (08:31)
[2025-02-24] MEDS ORDERED: iohexol 350MG/ML 100ml bottle IV ONE (08:32)
[2025-02-24] MEDS ORDERED: MELA3TAB70 PO (09:02)
[2025-02-24] MEDS ORDERED: METF-900 PO (09:02)
[2025-02-24 09:50] VITALS: BP 131/82; PULSE 85; RESP 18; TEMP 97.5; O2SAT 97
--- NOTE | 2025-02-24 10:03 | HISTORY AND PHYSICAL ---
History & Physical Providers to CC ~ History of Present Illness Reason for Admit\Complaint: Aphasia and seizures History of Present Illness This is a 79 years old male with history of CVA and seizures who was sent in because of a seizure and aphasia that followed; at the time of the interview patient is unable to provide any information as he also received medications; had a couple of seizures in emergency room; it looks like his aphasia improved for a bit in between; all my information is gathered from ED note and prior admissions; patient is unable to provide any information at this point Allergies: Coded Allergies: No Known Allergies (Unverified , 07/30/12) Home Medications Home Medications Active Reported Melatonin 3 Mg Tab.rapdis 1 Tab PO HS 30 Days Metformin ER* (Metformin HCl) 500 Mg Tab.sr.24h 1 Tab PO DAILY 30 Days Miralax (Polyethylene Glycol 3350) 17 Gram/Dose Powder 17 Gm PO DAILY dissolve in water Loperamide (Loperamide Hcl) 2 Mg Tablet 1 Tab PO PRN PRN 30 Days Lisinopril 20 Mg Tablet 5 Mg PO DAILY 30 Days Synthroid* (Levothyroxine Sodium) 88 Mcg Tablet 175 Mcg PO DAILY 30 Days Lipitor* (Atorvastatin Calcium) 80 Mg Tablet 1 Tablet PO HS Protonix (Pantoprazole Sodium) 20 Mg Tablet.dr 1 Tab PO DAILY 30 Days Magnesium (Magnesium Oxide) 250 Mg Tablet 400 Mg PO TID 30 Days Zoloft* (Sertraline HCl) 25 Mg Tablet 1 Tab PO DAILY Vimpat (Lacosamide) 100 Mg Tablet 1 Tab PO TID 30 Days Past Medical History Past Medical History Seizure disorder CVA Hypothyroidism Diabetes mellitus type 2 Paroxysmal atrial fibrillation Past Surgical History Surgical History Comment unAble to obtain Family History Family History: Patient reports no known family medical history. Past Social History Social History Comment Family history-unable to obtain Social history-patient lives in an assisted living; unable to obtain history of tobacco or alcohol use ROS ROS Unable to do the review of the systems Exam Vitals: Vital Signs Date Time Temp Pulse Resp B/P (MAP) Pulse Ox O2 Delivery O2 Flow Rate FiO2 02/24/25 09:07 101 19 134/93 (107) 96 02/24/25 08:12 98.7 2.0 02/24/25 07:11 N/A General: Patient is in bed in nonacute distress arousable but nonverbal HEENT normal oral mucosa no JVD no palpable firm palpable thyroid Lungs with normal bilateral entry no crackles no wheezing Heart normal rate and rhythm S1-S2 no murmurs Abdomen is soft nontender bowel sounds are present Extremities no edema plus two pulses Arousable grossly motor and sensory intact Diagnostic Data Last Recorded Lab Results: 02/24/25 0632 02/24/25 0632 Diagnostic Data: Laboratory Tests Test 02/24/25 06:32 Prothrombin Time 10.7 SECONDS (9.0-12.0) INR International Normalized Ratio 1.0 INR Activated Partial Thromboplast Time 26 SECONDS (22-32) Coagulation Comments Additional Plan Patient presenting with breakthrough seizure and aphasia; likely aphasia is related to seizures that it looks like he has aphasia corrected for all bit in between seizures; he was seen by tele neurology and recommended to increase his Vimpat; MRI of the head to rule out CVA; check UA History of paroxysmal atrial fibrillation History of diabetes mellitus type 2 we will check his hemoglobin A1c Unable to obtain a code status so as of now per the fall patient is a full code; he is admitted as an inpatient Date of Service: February 24, 2025 Billing Provider: MONICA BRITO MD Common Visit Codes: [id number] INP/OBS CARE (HIGH) MONICA BRITO MD February 24, 2025 10:03
[2025-02-24] MEDS ORDERED: LORazepam 2 mg/ml vial IV PRN (17:10)
[2025-02-24 18:00] VITALS: BP 123/75; PULSE 91; RESP 17; TEMP 98.4; O2SAT 95
[2025-02-24 20:00] VITALS: BP_SYST 141; BP_SYST 144; BP_DIAS 89; BP_DIAS 97; PULSE 79; PULSE 95; RESP 17; O2SAT 95
[2025-02-24] MEDS: LACOSAMIDE 50 MG TABLET PO SCH (20:58)
[2025-02-24] MEDS: docusate sod 100mg capsule PO SCH (20:58)
[2025-02-24 22:00] VITALS: BP 141/89; PULSE 79; RESP 14; TEMP 98.9; O2SAT 94
[2025-02-25] VITALS (7 sets, daily range): BP systolic 129–191; BP diastolic 73–130; PULSE 83–104; RESP 15–19; TEMP 97.6–98.3; O2SAT 92–100
[2025-02-25 05:54] LABS: BASOPHILS % (AUTO) 0.7 % (0-1); EOSINOPHILS # (AUTO) 0.1 X10'3 (0-0.9); HEMATOCRIT 44.4 % (42.0-52.0); HEMOGLOBIN 15.2 g/dl (14.0-17.9); LYMPHOCYTES # (AUTO) 1.1 X10'3 (1.1-4.8); LYMPHOCYTES % (AUTO) 15.2 % (21-51); MEAN CORPUSCULAR HEMOGLOBIN 30.8 PG (27.0-31.0); MEAN CORPUSCULAR HGB CONC 34.2 g/dL (33.0-36.5); MEAN PLATELET VOLUME 8.9 FL (7.4-10.4); MONOCYTES # (AUTO) 0.7 X10'3 (0-0.9); MONOCYTES % (AUTO) 9.2 % (2-12); NEUTROPHILS # (AUTO) 5.4 X10'3 (1.8-7.7); NEUTROPHILS % (AUTO) 73.9 % (42-75); PLATELET COUNT 232 X10'3 (140-440); RED BLOOD COUNT 4.93 X10'6 (4.70-6.10); RED CELL DISTRIBUTION WIDTH 13.9 % (11.5-14.5); WHITE BLOOD COUNT 7.3 X10'3 (4.5-11.0)
[2025-02-25 06:18] LABS: ANION GAP 7 (8-16); BLOOD UREA NITROGEN 10 MG/DL (7-18); BUN/CREATININE RATIO 8.6 (10.0-20.0); CALCIUM 8.7 MG/DL (8.5-10.1); CHLORIDE 100 MMOL/L (99-107); CREATININE 1.16 MG/DL (0.60-1.10); GLUCOSE 187 MG/DL (70-104); POTASSIUM 3.8 MMOL/L (3.5-5.1); SODIUM 135 MMOL/L (135-145); TOTAL CARBON DIOXIDE 27.8 MMOL/L (24-32); eCRCL 62 ML/MIN; eGFR 61 ML/MIN
[2025-02-25 06:25] LABS: HEMOGLOBIN A1C 7.7 % (4.5-6.2)
[2025-02-25] MEDS ORDERED: glucagon, human recombinant 1mg kit SUBCUT PRN (08:40)
[2025-02-25] MEDS ORDERED: dextrose 50%-water 50ml dispensing syringe IV PRN ×2 (08:40)
[2025-02-25] MEDS ORDERED: DEXTROSE 15 GM of carb/4 tabs (each vial/BOTTLE has 4 tablets) PO PRN ×2 (08:40)
--- NOTE | 2025-02-25 11:06 | RADIOLOGY REPORT ---
MRI BRAIN WITHOUT CONTRAST CLINICAL HISTORY: cva TECHNIQUE: Multiplanar, multisequence MR images of the brain without intravenous contrast. Comparison: MR MRI HEAD on DOS: 05/04/24, CT CT HEAD on DOS: 04/05/24 FINDINGS: There is no restricted diffusion. There is moderate generalized parenchymal volume loss. There are mo derate chronic small-vessel ischemic changes in the supratentorial white matter. There is a stable ch ronic infarct in the posterior right basal ganglia. There is no evidence of hemorrhage, mass, mass ef fect or midline shift. There is no hydrocephalus or extra-axial fluid collection. The visualized intr acranial vasculature demonstrates appropriate flow-voids. The sagittal midline structures appear unre markable. The craniocervical junction is within normal limits. The calvarium demonstrates normal tiffanie ow signal. There is a retention cyst in the left maxillary sinus. Mastoid air cells are clear. IMPRESSION: 1. There is no acute intracranial process. HS:Y
[2025-02-25 12:12] LABS: CHOL/HDL RATIO 2.2 (0.00-4.99); CHOLESTEROL 100 MG/DL (0-200); HDL CHOLESTEROL 45 MG/DL (35-60); LDL CHOLESTEROL 47 MG/DL (50-100); TRIGLYCERIDES 62 MG/DL (20-135)
[2025-02-25] MEDS: INSULIN LISPRO 100 UNIT/ML INSULN.PEN MULTI-DOSE SQ SCH (12:30)
[2025-02-25] MEDS ORDERED: loperamide 2mg capsule PO PRN (20:40)
--- NOTE | 2025-02-25 20:45 | PROGRESS NOTE ---
Daily Progress Note Providers to CC ~ Antibiotic Timeout Antibiotic Ordered?: No Subjective The patient has had no seizure activity since presentation to the hospital is awaiting physical therapy evaluation Objective Vital Signs Date Time Temp Pulse Resp B/P (MAP) Pulse Ox O2 Delivery O2 Flow Rate FiO2 02/25/25 18:00 98.3 90 16 157/101 (119) 92 Room Air 02/24/25 14:31 2.5 02/24/25 07:11 N/A Result Diagram: 02/25/2551202/25/25512 Gen. No acute distress alert and oriented 4 Lungs clear to ascultation bilaterally, no wheezes rales or rhonchi appreciated Heart normal sinus rhythm no murmurs rubs or clicks noted Abdomen soft nontender bowel sounds are normoactive Lower extremities no clubbing cyanosis, nor edema appreciated bilaterally Coagulation Studies Laboratory Tests Test 02/24/25 06:32 Prothrombin Time 10.7 SECONDS (9.0-12.0) INR International Normalized Ratio 1.0 INR Activated Partial Thromboplast Time 26 SECONDS (22-32) Coagulation Comments Problem\Assessment\Plan #Seizure disorder- with breakthrough seizure and secondary metabolic encephalopathy Vimpat is increased to 150 mg t.i.d. MRI of the head was unremarkable # history of CVA Not on anticoagulation due to recurrent seizure activities #Hypothyroidism Continue levothyroxine # Diabetes mellitus type 2 Continue hyper and hypoglycemic protocol #Paroxysmal atrial fibrillation Currently in sinus continue tele monitoring Disposition: awaiting physical therapy evaluation- will likely require home health the patient lives at [facility]. Date of Service: February 25, 2025 Billing Provider: RAMIRO YO DO Common Visit Codes: [id number] INP/OBS CARE(HIGH) RAMIRO YO DO February 25, 2025 20:44
[2025-02-25] MEDS: magnesium oxide 400mg tablet PO SCH (21:48)
[2025-02-25] MEDS: Melatonin 3mg tablet PO SCH (21:48)
[2025-02-25] MEDS: atorvastatin 20mg tablet PO SCH (21:49)
[2025-02-26 02:00] VITALS: BP 135/90; PULSE 98; RESP 14; TEMP 98.3; O2SAT 93
[2025-02-26 04:56] LABS: BASOPHILS # (AUTO) 0.1 X10'3 (0-0.2); BASOPHILS % (AUTO) 0.7 % (0-1); EOSINOPHILS # (AUTO) 0.1 X10'3 (0-0.9); EOSINOPHILS % (AUTO) 1.5 % (0-6); HEMATOCRIT 45.6 % (42.0-52.0); HEMOGLOBIN 15.6 g/dl (14.0-17.9); LYMPHOCYTES # (AUTO) 1.2 X10'3 (1.1-4.8); LYMPHOCYTES % (AUTO) 16.2 % (21-51); MEAN CORPUSCULAR HEMOGLOBIN 30.9 PG (27.0-31.0); MEAN CORPUSCULAR HGB CONC 34.3 g/dL (33.0-36.5); MEAN CORPUSCULAR VOLUME 90.3 FL (78-98); MEAN PLATELET VOLUME 8.4 FL (7.4-10.4); MONOCYTES # (AUTO) 0.8 X10'3 (0-0.9); MONOCYTES % (AUTO) 10.5 % (2-12); NEUTROPHILS # (AUTO) 5.5 X10'3 (1.8-7.7); NEUTROPHILS % (AUTO) 71.1 % (42-75); PLATELET COUNT 216 X10'3 (140-440); RED BLOOD COUNT 5.06 X10'6 (4.70-6.10); RED CELL DISTRIBUTION WIDTH 13.7 % (11.5-14.5); WHITE BLOOD COUNT 7.7 X10'3 (4.5-11.0)
[2025-02-26 05:23] LABS: ALBUMIN 3.1 G/DL (3.4-5.0); ANION GAP 7 (8-16); BLOOD UREA NITROGEN 8 MG/DL (7-18); BUN/CREATININE RATIO 8.4 (10.0-20.0); CALCIUM 9.1 MG/DL (8.5-10.1); CHLORIDE 101 MMOL/L (99-107); CREATININE 0.95 MG/DL (0.60-1.10); GLUCOSE 178 MG/DL (70-104); POTASSIUM 3.6 MMOL/L (3.5-5.1); SODIUM 137 MMOL/L (135-145); TOTAL CARBON DIOXIDE 29.5 MMOL/L (24-32); eCRCL 76 ML/MIN; eGFR 77 ML/MIN
[2025-02-26 06:00] VITALS: BP 159/106; PULSE 88; RESP 20; TEMP 98.5; O2SAT 97
[2025-02-26 07:45] VITALS: BP 110/74; PULSE 100
[2025-02-26] MEDS: sertraline 25mg tablet PO SCH (07:48)
[2025-02-26] MEDS: levoTHYROXINE 175mcg tablet PO SCH (07:48)
[2025-02-26] MEDS: pantoprazole 40mg Tablet.DR PO SCH (07:48)
[2025-02-26] MEDS: lisinopril 5mg tablet PO SCH (07:49)
[2025-02-26] MEDS: polyethylene glycol 3350 17gm powd pack PO SCH (07:51)
[2025-02-26 08:00] VITALS: BP_SYST 139; BP_SYST 152; BP_SYST 156; BP_DIAS 100; BP_DIAS 88; BP_DIAS 98; PULSE 104; PULSE 107; PULSE 88
[2025-02-26 10:00] VITALS: BP 108/71; PULSE 96; RESP 16; TEMP 97.1; O2SAT 95
[2025-02-26] MEDS ORDERED: LACO50TA2 PO (10:47)
--- NOTE | 2025-02-26 21:22 | DISCHARGE SUMMARY ---
Discharge Summary Providers to CC ~ Discharge Summary Admission Diagnosis: poss cva, btr seizures Hospital Course DATE OF ADMISSION: 02/24/2025 DATE OF DISCHARGE: 02/25/2025 Discharge Diagnosis\\Comment: Seizure disorder, expressive aphasia, history of CVA, hypothyroidism, paroxysmal atrial fibrillation, type 2 diabetes mellitus Operations\\Procedures: None Consultants: Dr Raad Benitez tele neurologist Complications: None Condition on DC: Stable New Medications: Lacosamide (Vimpat) 50 Mg Tablet 150 MG PO TID, #90 TAB 1 Refill Continued Medications: Atorvastatin Calcium* (Lipitor*) 80 Mg Tablet 1 TABLET PO HS, TABLET Levothyroxine Sodium* (Synthroid*) 88 Mcg Tablet 175 MCG PO DAILY for 30 Days, #30 TAB Lisinopril (Lisinopril) 20 Mg Tablet 5 MG PO DAILY for 30 Days, #30 TAB Loperamide Hcl (Loperamide) 2 Mg Tablet 1 TAB PO PRN PRN for diarrhea for 30 Days, #180 TAB 0 Refills Magnesium Oxide (Magnesium) 250 Mg Tablet 400 MG PO TID for 30 Days, #30 TAB 0 Refills Melatonin (Melatonin) 3 Mg Tab.rapdis 1 TAB PO HS for sleep for 30 Days, #30 TAB 0 Refills Metformin Hcl* (Metformin ER*) 500 Mg Tab.sr.24h 1 TAB PO DAILY for 30 Days, #30 TAB Pantoprazole Sodium (Protonix) 20 Mg Tablet.dr 1 TAB PO DAILY for 30 Days, #30 TAB 0 Refills Polyethylene Glycol 3350 (Miralax) 17 Gram/Dose Powder 17 GM PO DAILY for constipation, #255 GM 0 Refills dissolve in water Sertraline Hcl* (Zoloft*) 25 Mg Tablet 1 TAB PO DAILY, TAB Discontinued Medications: Lacosamide (Vimpat) 100 Mg Tablet 1 TAB PO TID for 30 Days, #60 TAB Discharge Summary: The patient was admitted by Dr. Dillan Shankar with the following HPI:"This is a 79 years old male with history of CVA and seizures who was sent in because of a seizure and aphasia that followed; at the time of the interview patient is unable to provide any information as he also received medications; had a couple of seizures in emergency room; it looks like his aphasia improved for a bit in between; all my information is gathered from ED note and prior admissions; patient is unable to provide any information at this point." The patient was evaluated by Dr. Benitez Telemedicine neurology who recommended increasing the patient's Vimpat from 100 mg to 150 mg the patient had no further episodes of seizure activity during hospitalization the patient continued to demonstrate expressive aphasia however the patient does have a history of CVA and this is likely a sequelae of his previous CVA. The patient remains on atorvastatin 80 mg daily The patient has hypothyroidism and remains on levothyroxine The patient has [id number] diabetes mellitus his hemoglobin A1c is 7.7 and the patient is blood sugars were in the high 100s to low 200s during hospitalization on the hyper and hypoglycemic protocol. The patient has a history of paroxysmal atrial fibrillation however some sinus rhythm during hospitalization. Gen. No acute distress alert and oriented Lungs clear to ascultation bilaterally, no wheezes rales or rhonchi appreciated Heart normal sinus rhythm no murmurs rubs or clicks noted Abdomen soft nontender bowel sounds are normoactive Lower extremities no clubbing cyanosis, nor edema appreciated bilaterally The patient felt ready to be discharged and was medically cleared to be discharged on 02/26/2023 with home health and recommendations to follow up with his neurologist within two weeks The patient was seen and evaluated on day of discharge. Time spent on discharge 35 minutes. *Problems/Diagnosis: (1) Seizure Status: Acute Total Time Spent on D/C: > 30 Minutes Date of Service: February 26, 2025 Billing Provider: RAMIRO YO DO Common Visit Codes: 40056-ITN/OBS DISCH DAY >30min RAMIRO YO DO February 26, 2025 21:22
== END 2025-02-26 13:25 | disposition home health service (06) | DRG 101 ==
LOC: ER 06:21 → ED HOLD 08:14 → ORTHO 4S 09:44
PROVIDERS: ADMIT Internal Medicine; ATTEND Internal Medicine
PROC: B3251ZZ Computerized Tomography (CT Scan) of Bilateral Common Carotid Arteries using Low Osmolar Contrast (ICD-10-PCS; principal; 2025-02-24)
PROC: B32G1ZZ Computerized Tomography (CT Scan) of Bilateral Vertebral Arteries using Low Osmolar Contrast (ICD-10-PCS; 2025-02-24)
PROC: B32R1ZZ Computerized Tomography (CT Scan) of Intracranial Arteries using Low Osmolar Contrast (ICD-10-PCS; 2025-02-24)
PROC: B3281ZZ Computerized Tomography (CT Scan) of Bilateral Internal Carotid Arteries using Low Osmolar Contrast (ICD-10-PCS; 2025-02-24)
DX: G40.909 Epilepsy, unspecified, not intractable, without status epilepticus (principal); Z66 Do not resuscitate; E03.9 Hypothyroidism, unspecified; E11.9 Type 2 diabetes mellitus without complications; I10 Essential (primary) hypertension; I48.0 Paroxysmal atrial fibrillation; I69.320 Aphasia following cerebral infarction; Z51.5 Encounter for palliative care; Z79.84 Long term (current) use of oral hypoglycemic drugs; Z79.899 Other long term (current) drug therapy; Z87.891 Personal history of nicotine dependence
CPT/HCPCS: 36415; 70450; 70496; 70498; 70551; 71045; 80048; 80053; 80061; 81003; 82948; 83036; 83605; 83880; 84145; 84443; 84484; 85025; 85610; 85730; 87040; 87081; 92508; 92616; 93005; 96365; 96375; 97116; 97161; 97530; 99291; A4615; A6590; C9254; G0378; J1815; J2060; J7042; Q9967